=== PATIENT | female | born 1970 | race Caucasian/White ===

== ENCOUNTER 2019-02-27 10:27 | Outpatient (RCR) | payer SELFPAY | END 2019-03-21 00:01 | LOC: SPT 10:27 | PROVIDERS: Family Provider Nurse Practitioner Family; Visit Provider Podiatrist Foot & Ankle Surgery | DX: M76.61 Achilles tendinitis, right leg (principal) | CPT/HCPCS: 97161; 97530; 97110 ==

== ENCOUNTER 2019-03-24 | Outpatient (RCR) | payer SELFPAY | END 2019-06-13 | disposition home or self-care (01) | LOC: SPT | PROVIDERS: Visit Provider Podiatrist Foot & Ankle Surgery | DX: M79.671 Pain in right foot (principal); R26.89 Other abnormalities of gait and mobility | CPT/HCPCS: 97110 ==

== ENCOUNTER 2019-09-15 10:43 | Outpatient (CLI) | payer MEDICAID, SELFPAY ==
--- NOTE | 2019-09-15 11:00 | MR_ITS ---
WS: [id number] MRI RIGHT ANKLE non- CONTRAST. COMPARISON: 11/22/2018 Multiplanar, multisequence imaging is performed without contrast. History: Injury RIGHT ankle. Fell one year ago. Fluidlike signal is noted in the very distal Achilles tendon extending over length of 10 mm. This is in the region of tendinopathy described on the prior study. Very mild thickening of the tendon. No joint effusion at the ankle. Signal within the calcaneus is normal. Osteochondral lesion involving the lateral talar dome measures 9.2 mm. Similar to the prior study. Th ere is additional subchondral edema along the lateral tibial plafond and mild tibiotalar joint space narrowing. No interval change. No loose body is identified. Ligaments and tendons around the ankle a re otherwise normal. Peroneal brevis and longus are negative. MR/MR ankle RT wo con* [id number] IMPRESSION: 1. New short split tear in the distal Achilles tendon measures 10 mm in length . 2. Osteochondral lesion measuring 9.2 mm in the lateral talar dome with corres ponding subchondral edema and changes in the tibial plafond. No loose body iden tified. No change.
== END 2019-09-15 10:44 | disposition home or self-care (01) ==
PROVIDERS: Visit Provider Podiatrist Foot & Ankle Surgery
DX: S99.911A Unspecified injury of right ankle, initial encounter (principal); X58.XXXA Exposure to other specified factors, initial encounter; S86.011A Strain of right Achilles tendon, initial encounter
CPT/HCPCS: 73721

== ENCOUNTER 2019-10-04 09:38 | Outpatient (CLI) | payer MEDICAID, SELFPAY ==
--- NOTE | 2019-10-04 13:01 | PC.NURSE ---
0940 Patient here for Covid pre op testing. Patient verified via name and date of . Full PPE in place to include goggles, gloves, gown and N95 mask. Specimen collected, labeled and taken to lab. Patient tolerated procedure well.
[2019-10-05 13:45] LABS: Coronavirus Lab Test PTC Negative
== END 2019-10-04 09:39 | disposition home or self-care (01) ==
PROVIDERS: Visit Provider Podiatrist Foot & Ankle Surgery
DX: Z01.812 Encounter for preprocedural laboratory examination (principal)
CPT/HCPCS: 87635

== ENCOUNTER 2019-10-06 06:22 | Day surgery (SDC) | payer MEDICAID, SELFPAY ==
[2019-10-05 06:58] VITALS: BMI 38.4
[2019-10-06] VITALS (9 sets, daily range): BP systolic 162–182; BP diastolic 84–116; PULSE 88–113; RESP 12–20; TEMP 36.3–36.9; O2SAT 94–99
--- NOTE | 2019-10-06 | SCC_ITS ---
Procedure Done: Right Talita's resection with calcaneal exostectomy with repair of Achilles tendon, right CPT code 17208. Right flexor hallucis longus tendon transfer CPT code 14227 1 second of fluoroscopic guidance, for a cumulative dose of 0.0.2 mGy, was provided to Dr. Ernandez by the radiology department. C-arm images of the RIGHT foot were saved for the patient's permanent record. KYLIE
[2019-10-06 07:11] LABS: OR HCG Qualitative Urine Negative (Negative)
[2019-10-06] MEDS: sodium chloride 0.9% 500 ML 999 ML IV (07:20)
[2019-10-06] MEDS: sodium chloride 0.9% 1,000 ML 30 ML IV (07:30)
--- NOTE | 2019-10-06 08:01 | ANES.PREANE2 ---
Pre-Anesthetic Assessment Pre-Anesthetic Assessment: Height/Weight: Height 1.63 m Weight 101.605 kg Temp Pulse Resp BP Pulse Ox 98.5 F 94 18 174/116 96 10/06/19 06:53 10/06/19 06:53 10/06/19 06:53 10/06/19 06:53 10/06/19 06:53 Preop Diagnosis: Right Achilles tendon tear, Talita's deformity, right, gastrocnemius equinus, right. Proposed Procedure: Operation Date: 10/06/19 08:25 Proposed Procedures p Right haglunds resecton with achilles tendon repair [id number](Right) - Jp Ernandez DPM s right flexor hallucis longus tendon transfer(Right) - MATTHEW Lo Right Gastrocnemius Recession(Right) - Jp Ernandez DPM Familial anesthetic complications: Patient states her heart stopped during a procedure 30 years ago (she is unable to give any further information and does not know what procedure she had) Was Beta Jeevan taken within 24 hours: N/A Last intake: Intake Last Liquid Date 10/05/19 Last Liquid Time 23:00 Last Solid Date 10/05/19 Last Solid Time 23:00 Social: Social History: Tobacco and No alcohol Airway: Cervical ROM: WNL MP: 3 Dentition: Other (missing) Pulmonary: Pulmonary: None reported CV/HEM: CV/HEM: HTN : : None reported Hepatic: Hepatic: None reported GI: GI: None reported Metabolic: Metabolic: Thyroid Neuropsych: Neuropsych: Neuropathy Anesthetic Plan: ASA status: 3 Anesthesia: General and Regional (specify below) Risk of > 500 ml blood loss (7ml/kg in children): No PFSH Anesthesia PFSH: Medical History delivery delivered Ectopic Family History Grandmother Cancer Denies family history of Diabetes CAD (coronary artery disease) Clotting disorder Dementia Hyperlipidemia Psychiatric illness Chronic kidney disease (CKD) Suicide Anesthesia complication Bleeding disorder Family history of premature coronary artery disease Lung disease Hypertension Stroke Social History Smoking and tobacco status: current some day smoker cigarettes Second hand smoke exposure: No Alcohol intake: never Current occupational status: unemployed Female Reproductive History: Date of last menstrual period: 07/06/19 Data Anesthesia Other Labs: Laboratory Results - last 48 hr 10/06/19 07:08 Urine HCG, Qual Negative Cardiac Studies: No Data to Display
--- NOTE | 2019-10-06 08:09 | W.PM.OPSUD ---
Surgery/Procedure H&P Update DATE OF PROCEDURE: October 06, 2019 DATE H&P PERFORMED: 09/20/19 H&P UPDATE INFORMATION: I have reviewed H&P completed within last 30 days, I have examined patient prior to procedure, No changes to prior documentation and H&P is in [facility] EMR on date indicated PREOP DIAGNOSIS: Right Achilles tendon tear, Talita's deformity, right, gastrocnemius equinus, right. PLANNED PROCEDURE: Operation Date: 10/06/19 08:25 Proposed Procedures p Right haglunds resecton with achilles tendon repair [id number](Right) - Jp Ernandez DPM s right flexor hallucis longus tendon transfer(Right) - MATTHEW Lo Right Gastrocnemius Recession(Right) - Jp Ernandez DPM
--- NOTE | 2019-10-06 08:14 | ANES.PROC ---
Anesthesia Procedures Procedure/Date: 10/06/19 Other Information: R popliteal nerve block performed after time out, chloraprep of skin, 4 22 g stimuplex needle inserted with negative aspiration and visualization of spread of local anesthetic. Ropiviciane 0.2% 30 cc w/ decadron 4mg injected around tibial and common peroneal nerves. No complications
--- NOTE | 2019-10-06 10:53 | XR_ITS ---
WS: [id number] FOOT RIGHT TECHNIQUE: 3 views of the right foot CLINICAL INFORMATION: post op COMPARISON: None. FINDINGS: Splint material. Recent postoperative changes dorsal calcaneal resurfacing. Soft tissue edema. XR/XR foot RT min 3V* [id number] IMPRESSION: Normal for postoperative purposes
--- NOTE | 2019-10-06 11:04 | PM.OP ---
Operative Report Date of procedure: October 06, 2019 Pre-op Diagnosis: Right Achilles tendon tear, Talita's deformity, right, gastrocnemius equinus, right. Post-op diagnosis: other Post-op Diagnosis: Right Achilles tendon tear with Talita's deformity to the right lower extremity. Post-op Findings: Degenerative Achilles tendon with Talita's deformity and insertional Achilles calcifications Procedure Done: Right Talita's resection with calcaneal exostectomy with repair of Achilles tendon, right CPT code 60960. Right flexor hallucis longus tendon transfer CPT code 40259 Implants: [employer] speed bridge and amnion graft provided by [employer]. 5 mm tenodesis screw provided by [employer]. 2-0 Vicryl, 3-0 Vicryl, 3-0 nylon. 2-0 FiberWire Pathology: none sent Surgeon: Jp Ernandez D.P.M. Cardiopulmonary Physical Therapist: Gabriela Anesthesia: General Estimated blood loss: 10 mL Tourniquet time: Approximately 84 minutes IV fluids: None Urine output: None Complications: None Condition: stable Disposition: PACU Brief History: Ms. Rust is a 49-year-old female with Achilles tendinosis, Talita's deformity and persistent pain to her right posterior heel and Achilles tendon. She has underwent extensive conservative management consisting of physical therapy, analgesics, stretching, loading exercises, night splint and offloading. MRI findings consistent with mucoid degeneration and Achilles tendinosis with thickening and mid substance tear on insertion with intratendinous calcifications. Patient states that her pain has not responded to conservative care and that it affects her ability to carry out everyday activities she has pain on a daily basis and states that she cannot take it anymore. Surgery procedure recommended is Talita's resection right lower extremity, secondary Achilles tendon repair to the right lower extremity, right flexor hallucis longus tendon transfer and possible gastrocnemius recession. Risks include pain, bleeding, numbness, infection, surgical site dehiscence, need for antibiotics, need for surgical debridement and/or amputation secondary to infection, loss of function, loss of plantarflexion strength at the great toe right lower extremity. Risks for DVT, PE, heart attack and stroke, failure to alleviate pain, neuralgia, neuritis And tendon rupture to the right lower extremity. Patient is agreeable and wishes to proceed. Procedure: Under mild sedation the patient was brought to the operating room, timeout was performed, anesthesia was administered by the anesthesia service after which patient was positioned prone onto the operating table with offloading and padding in standard fashion. Well-padded pneumatic tourniquet applied to the right high thigh. The right lower extremity was then scrubbed, prepped and draped utilizing normal aseptic technique. As noted that she did receive a popliteal block preoperatively. The right lower extremity was examined a weighted with an Esmarch bandage and a tourniquet was inflated to 300 mmHg. Attention was directed to the right posterior heel where a linear longitudinal incision was made approximately 8 cm in length directly over the midsection of the Achilles tendon coursing distally at its insertion through skin with a #15 blade. Dissection was carried down both bluntly and sharply to the peritenon which was reflected medially and laterally. Care was taken to retract and preserve neurovascular tendinous structures. Bleeders were ligated and cauterized as necessary. Achilles tendon was exposed and skin retracted utilizing self-retaining retractors. Achilles tendon was noted to be excessively thickened and degenerative with devitalized tissue this was sharply debrided. The Achilles tendon was reflected off of its insertion site sharply with a 15 blade after which the bony overgrowth of the posterior calcaneus was transected utilizing a sagittal saw and passed from operative field. All rough edges and enthesophytes smoothed and removed utilizing a rongour. Further debridement of the posterior and anterior medial lateral aspect of the Achilles tendon was performed of all devitalized and degenerative tissue. This was then reflected proximally. Dissection was then carried down through the fat pad of Kager's triangle and the flexor hallucis longus tendon was identified this was confirmed by dorsiflexing and plantar flexing the right hallux. It was transected at its most distal margin and secured utilizing 2-0 FiberWire. A drill hole for a 5 mm tenodesis screw was then utilized from a posterior superior to anterior inferior aspect and a Loki needle was utilized to pass the suture and tension the flexor houses longus tendon appropriately this was then fixated utilizing it interference tenodesis screw 5 mm in diameter provided by [employer] with excellent apposition and fixation noted there is strong resistance to pullout appreciated. Excess FiberWire was trimmed plantarly and remained subcutaneous. Incision site was flushed with saline solution. A [employer]rex speed bridge was then utilized with 2 high to low fashion beginning with drill holes followed by tap and insertion of knotless suture bridge and crisscross fashion anchoring the Achilles tendon directly to healthy bone with great tendon to bone interface. Excess suture was trimmed and the incision site was flushed with saline solution. Peritenon was closed utilizing 3-0 Vicryl and amnion provided by [employer] was introduced at the posterior aspect of the peritenon this was tacked down with 3-0 Vicryl. Subcutaneous tissue was then reapproximated utilizing 2-0 Vicryl and skin was reapproximated utilizing 3-0 nylon. Determination was made to not perform the gastrocnemius recession as the Achilles tendon had adequate length and after having performed a flexor transfer there was excellent stability of the construct without an equinus deformity appreciated. The incision site was dressed with a jumpstart, sterile 4 x 4's, Kerlix followed by application of well-padded Wyman splint that was multilayer and compressive in an equinus position. Tourniquet was deflated and a prompt hyperemic response was noted to the distal digits of the right foot. Patient tolerated the procedure well and was transferred to the PACU with vital signs stable vascular status intact. Following a period of postoperative monitoring she will be discharged home is to remain strict nonweightbearing to the right lower extremity will follow-up Jered next week in podiatry clinic for dressing change. Also of note I did inject 20 cc of Exparel subcutaneously per pizza maker recommendations at the incision site.
== END 2019-10-06 12:20 | disposition home or self-care (01) ==
PROVIDERS: Anesthesiology; PCP Nurse Practitioner Family; Visit Provider Podiatrist Foot & Ankle Surgery
PROC: (CPT 27654; principal; 2019-10-06 08:25)
PROC: (CPT 28261; 2019-10-06 08:25)
DX: S86.001A Unspecified injury of right Achilles tendon, initial encounter (principal); X58.XXXA Exposure to other specified factors, initial encounter; M92.61 Juvenile osteochondrosis of tarsus, right ankle; I10 Essential (primary) hypertension; F17.210 Nicotine dependence, cigarettes, uncomplicated
CPT/HCPCS: 27654; 27691; 12345; 73630; 76000; 84703; C1713; C1762; C9290; J0690; J1100; J2370; J2405; J2704; J2795; J3010; J3490; J7030; J7040

== ENCOUNTER 2019-10-19 11:32 | Outpatient (CLI) | payer MEDICAID, SELFPAY | END 2019-10-19 11:33 | disposition home or self-care (01) | LOC: SPT 11:34 | PROVIDERS: PCP Nurse Practitioner Family; Visit Provider Podiatrist Foot & Ankle Surgery | DX: Z98.890 Other specified postprocedural states (principal); M65.28 Calcific tendinitis, other site | CPT/HCPCS: 97760; L4361 ==

== ENCOUNTER → 2020-01-08 08:30 | Outpatient (BNVA) | payer MEDICAID, SELFPAY | PROVIDERS: PCP Nurse Practitioner Family; Visit Provider Psychiatry & Neurology Psychiatry | DX: F41.9 Anxiety disorder, unspecified (principal); F41.1 Generalized anxiety disorder; F43.10 Post-traumatic stress disorder, unspecified | CPT/HCPCS: 90792 ==

== ENCOUNTER → 2020-02-09 11:28 | Outpatient (BNVA) | payer MEDICAID, SELFPAY | PROVIDERS: PCP Nurse Practitioner Family; Visit Provider Psychiatry & Neurology Psychiatry | DX: F41.1 Generalized anxiety disorder (principal) | CPT/HCPCS: 99213 ==

== ENCOUNTER 2020-02-12 09:41 | Outpatient (CLI) | payer MEDICAID, SELFPAY ==
--- NOTE | 2020-02-12 09:51 | XR_ITS ---
WS: [id number] LEFT KNEE: 3 VIEW(S) TECHNIQUE: AP, oblique(s) and lateral. HISTORY: LEFT KNEE PAIN COMPARISON: None available. No acute fracture identified. There is lateral patellar dislocation with respect to the intercondylar notch. Mild narrowing of the medial joint space. Small suprapatellar joint effusion. DEXA XR/XR knee LT 3V* [id number] IMPRESSION: Lateral dislocation patella.
== END 2020-02-12 09:42 | disposition home or self-care (01) ==
LOC: RAD 09:46
PROVIDERS: PCP Nurse Practitioner Family; Visit Provider Nurse Practitioner Family
DX: S83.015A Lateral dislocation of left patella, initial encounter (principal); X58.XXXA Exposure to other specified factors, initial encounter
CPT/HCPCS: 73562

== ENCOUNTER 2020-04-25 09:23 | Outpatient (CLI) | payer MEDICAID, SELFPAY ==
--- NOTE | 2020-04-25 09:27 | MR_ITS ---
WS: [id number] MRI LEFT KNEE HISTORY: CHONDROMALACIA LEFT KNEE COMPARISON: Radiograph 02/12/2020. Anterior cruciate ligament: Intact. Posterior cruciate ligament: Intact. Medial collateral ligament: Intact. Posterior lateral corner structures: Intact. Medial menisci: Abnormal signal throughout a large portion of the posterior meniscus extends to the s uperior and inferior articular surfaces. Lateral meniscus: Intact. Normal signal, size and shape. Extensor mechanism: Distal quadriceps tendon and patellar tendons are intact. Fluid and soft tissue: Moderate-sized suprapatellar joint effusion. There is soft tissue edema around the anterior knee. No Good's cyst. Osseous and articular structures: Patellofemoral compartment: Lateral subluxation of the patella. The patellar eminence is contacting t he anterior lateral femur. This corresponds also to the radiographs from 02/12/2020. There is loss of the cartilage involving the lateral patellar facet towards the eminence. There is also defects withi n the medial patellar facet cartilage. Medial patellar retinaculum not identified and is likely torn. Medial compartment: Mild narrowing of the medial compartment. Mild fissuring of the cartilage but no full-thickness defect. No marrow edema. Lateral compartment: Mild narrowing of the lateral compartment. 3 mm defect in the cartilage along th e tibial plateau. There is additional mild fissuring along the weightbearing surface of the lateral f emoral condyle. MR/MR knee LT wo con* [id number] IMPRESSION: 1. Chronic lateral dislocation of the patella with a torn medial patellar reti naculum. 2. 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 3. Chondromalacia lateral tibial plateau. 4. Moderate-sized suprapatellar joint effusion. 5. Complex tear posterior horn medial meniscus.
== END 2020-04-25 09:24 | disposition home or self-care (01) ==
LOC: RADSHAW 09:24
PROVIDERS: PCP Nurse Practitioner Family; Visit Provider Orthopaedic Surgery
DX: M94.262 Chondromalacia, left knee (principal); S83.242A Other tear of medial meniscus, current injury, left knee, initial encounter; M25.462 Effusion, left knee; X58.XXXA Exposure to other specified factors, initial encounter
CPT/HCPCS: 73721

== ENCOUNTER 2020-04-25 09:27 | Outpatient (CLI) | payer MEDICAID, SELFPAY ==
--- NOTE | 2020-04-25 09:35 | MM_ITS ---
WS: [id number] BILATERAL DIGITAL SCREENING MAMMOGRAPHY WITH CAD CLINICAL INFORMATION: SCREENING HISTORY: Screening mammogram. No current complaints. COMPARISON: November 22, 2018 TECHNIQUE: Bilateral CC and MLO views. FINDINGS: Scattered fibroglandular densities bilaterally. No suspicious focal mass, asymmetry, calcifications, or architectural distortion. No evidence of malignancy. Punctate and secretory calcifications. MM/[place] [id number] IMPRESSION: BI-RADS: 2-Benign FOLLOW UP: 1 Year Follow-up Recommend return to annual screening mammography.
== END 2020-04-25 09:28 | disposition home or self-care (01) ==
LOC: RADSHAW 09:27
PROVIDERS: PCP Nurse Practitioner Family; Visit Provider Nurse Practitioner Family
DX: Z12.31 Encounter for screening mammogram for malignant neoplasm of breast (principal)
CPT/HCPCS: 77067

== ENCOUNTER → 2020-05-17 09:14 | Outpatient (BNVA) | payer MEDICAID, SELFPAY | PROVIDERS: PCP Nurse Practitioner Family; Visit Provider Counselor Professional | DX: F41.1 Generalized anxiety disorder (principal); F43.12 Post-traumatic stress disorder, chronic | CPT/HCPCS: 90832 ==

== ENCOUNTER → 2020-06-04 09:17 | Outpatient (BNVA) | payer MEDICAID, SELFPAY | PROVIDERS: PCP Nurse Practitioner Family; Visit Provider Counselor Professional | DX: F41.1 Generalized anxiety disorder (principal); F43.12 Post-traumatic stress disorder, chronic | CPT/HCPCS: 90832 ==

== ENCOUNTER 2020-06-11 08:41 | Outpatient (CLI) | payer MEDICAID, SELFPAY ==
--- NOTE | 2020-06-11 08:50 | CT_ITS ---
WS: [id number] Exam: CT knee LT wo con* [id number] Date/Time of Exam: 06/11/2020 8:50 AM Reason For Exam: M94.262 - Chondromalacia, left knee DLP: 2522.[address] scans at [facility] use at least one of these dose optimization techniques: automat ed exposure control; mA and/or kV adjustment per patient size (includes targeted exams where dose is matched to clinical indication); or iterative reconstruction. The left knee is evaluated in the axial plane with sagittal, coronal and 3-D reformatted images. No acute fracture identified. The medial patellar retinaculum appears to be completely torn. The webb lla is displaced and rides on the lateral femoral condyle with significant tilt. Large volume effusi on in the suprapatellar bursa. Mild subchondral bone erosions are seen at the inferior pole of the ce ntral patella. Moderate degenerative narrowing of the medial joint compartment of the knee. No obviou s subchondral bone erosion along the tibial plateaus or femoral condyles. Myofascial structures about the knee are intact. The subcutaneous fat is clear. CT/CT knee LT wo con* [id number] IMPRESSION: 1. Complete tear of the medial patellar retinaculum. The patella is displaced l aterally and rides on the lateral femoral condyle with significant lateral tilt of the articulating surface. 2. Large effusion in the suprapatellar bursa. 3. Mild subchondral bone erosion identified along the inferior pole of the cent ral patella. 4. Moderate degenerative narrowing of the medial joint compartment of the left knee.
== END 2020-06-11 08:42 | disposition home or self-care (01) ==
LOC: RADWPI 08:42
PROVIDERS: PCP Nurse Practitioner Family; Visit Provider Orthopaedic Surgery
DX: M94.262 Chondromalacia, left knee (principal); M25.462 Effusion, left knee; M85.862 Other specified disorders of bone density and structure, left lower leg; S86.812A Strain of other muscle(s) and tendon(s) at lower leg level, left leg, initial encounter; X58.XXXA Exposure to other specified factors, initial encounter
CPT/HCPCS: 73700

== ENCOUNTER → 2020-06-20 13:19 | Outpatient (BNVA) | payer MEDICAID, SELFPAY | PROVIDERS: PCP Nurse Practitioner Family; Visit Provider Counselor Professional | DX: F41.1 Generalized anxiety disorder (principal); F43.12 Post-traumatic stress disorder, chronic | CPT/HCPCS: 90832 ==

== ENCOUNTER → 2020-07-22 13:11 | Outpatient (BNVA) | payer MEDICAID, SELFPAY | PROVIDERS: PCP Nurse Practitioner Family; Visit Provider Counselor Professional | DX: F41.1 Generalized anxiety disorder (principal); F43.12 Post-traumatic stress disorder, chronic | CPT/HCPCS: 90832 ==

== ENCOUNTER → 2020-08-20 09:03 | Outpatient (BNVA) | payer MEDICAID, SELFPAY | PROVIDERS: PCP Nurse Practitioner Family; Visit Provider Counselor Professional | DX: F41.1 Generalized anxiety disorder (principal); F43.12 Post-traumatic stress disorder, chronic | CPT/HCPCS: 90832 ==

== ENCOUNTER → 2020-09-10 08:10 | Outpatient (BNVA) | payer MEDICAID, SELFPAY | PROVIDERS: PCP Nurse Practitioner Family; Visit Provider Psychiatry & Neurology Psychiatry | DX: F41.1 Generalized anxiety disorder (principal) | CPT/HCPCS: 99214 ==

== ENCOUNTER 2020-09-11 09:53 | Outpatient (CLI) | payer MEDICAID, SELFPAY ==
--- NOTE | 2020-09-11 10:02 | XR_ITS ---
WS: [id number] Left knee, 4 views, 09/11/2020 Clinical Data: LEFT KNEE PAIN Comparison: Left knee, 02/12/2020. Findings: There is narrowing of the medial joint space with a spur of the medial femoral condyle. The patella i s displaced laterally from its typical location approximately 1 cm. No fractures are seen. The soft tissues are not remarkable. XR/XR knee LT 4V [id number] Impression: 1. Mild medial joint compartment osteoarthritis. 2. Lateral displacement of left patella. Kellgren-Jostin Classification: grade 2 (minimal): definite osteophytes and p ossible medial joint space narrowing
--- NOTE | 2020-09-11 10:02 | XR_ITS ---
WS: [id number] Skull series, 4 views, 09/11/2020 Clinical Data: INJURY OF HEAD-FRONTAL Comparison: None. Findings: There are no skull fractures. The sella turcica is normal. No abnormal intracranial calcifications ar e seen. Frontal sinuses and orbits are not remarkable. XR/XR skull min 4V* [id number] Impression: Negative skull series.
== END 2020-09-11 09:54 | disposition home or self-care (01) ==
PROVIDERS: Visit Provider Nurse Practitioner Family
DX: M25.562 Pain in left knee (principal); S09.90XA Unspecified injury of head, initial encounter; X58.XXXA Exposure to other specified factors, initial encounter
CPT/HCPCS: 70260; 73564

== ENCOUNTER → 2020-09-16 09:09 | Outpatient (BNVA) | payer MEDICAID, SELFPAY | PROVIDERS: PCP Nurse Practitioner Family; Visit Provider Counselor Professional | DX: F41.1 Generalized anxiety disorder (principal); F43.12 Post-traumatic stress disorder, chronic | CPT/HCPCS: 90832 ==

== ENCOUNTER → 2020-10-11 12:57 | Outpatient (BNVA) | payer MEDICAID, SELFPAY | PROVIDERS: PCP Nurse Practitioner Family; Visit Provider Orthopaedic Surgery | DX: Z01.812 Encounter for preprocedural laboratory examination (principal); Z20.822 Contact with and (suspected) exposure to COVID-19 | CPT/HCPCS: 87635 ==

== ENCOUNTER → 2020-10-14 09:19 | Outpatient (BNVA) | payer MEDICAID, SELFPAY | PROVIDERS: PCP Nurse Practitioner Family; Visit Provider Counselor Professional | DX: F41.1 Generalized anxiety disorder (principal); F43.12 Post-traumatic stress disorder, chronic | CPT/HCPCS: 90832 ==

== ENCOUNTER 2020-10-17 08:44 | Day surgery (SDC) | payer MEDICAID, SELFPAY ==
[2020-10-16 11:30] VITALS: BMI 35.3
[2020-10-17] VITALS (17 sets, daily range): BP systolic 135–165; BP diastolic 81–116; PULSE 91–117; RESP 10–18; TEMP 36.4–37.2; O2SAT 86–96
--- NOTE | 2020-10-17 | XR_ITS ---
WS: [id number] INTRAOPERATIVE TECHNIQUE: 3 Spot fluoroscopic images for intraoperative purposes. FLUOROSCOPY TIME: 68.9 seconds CLINICAL INFORMATION: ORIF tib fib COMPARISON: None. FINDINGS: Cannulated screw fixation involving the proximal and mid tibia diaphysis. XR/XR tibia fibula LT 2V [id number] IMPRESSION: Images obtained for intraoperative purposes.
--- NOTE | 2020-10-17 | SCC_ITS ---
Procedure Done: Left knee; diagnostic arthroscopy with arthroscopic chondroplasty patella, tibial tubercle transposition, medial patellofemoral ligament reconstruction 68.9 seconds of fluoroscopic guidance, for a cumulative dose of 4.92 mGy, was provided to Dr. Kelley by the radiology department. C-arm images of the LEFT tibia-fibula were saved for the patient's permanent record. [facility] HOSPITALHorace
[2020-10-17 09:11] LABS: OR HCG Qualitative Urine Negative (Negative)
[2020-10-17] MEDS: gabapentin 300 mg Capsule PO (09:58)
[2020-10-17] MEDS: sodium chloride 0.9% 1,000 ML 30 ML IV (09:58)
[2020-10-17] MEDS: acetaminophen 500 mg Tablet 1000 MG PO (09:59)
[2020-10-17] MEDS: CELEcoxib 200 mg Capsule 400 MG PO (09:59)
--- NOTE | 2020-10-17 10:13 | ANES.PREANE2 ---
Pre-Anesthetic Assessment Pre-Anesthetic Assessment: Height/Weight: Height 1.63 m Weight 93.44 kg Temp Pulse Resp BP Pulse Ox 99.0 F 97 16 165/101 95 10/17/20 09:19 10/17/20 09:19 10/17/20 09:19 10/17/20 09:19 10/17/20 09:19 Preop Diagnosis: Patellar instability left knee Proposed Procedure: Operation Date: 10/17/20 10:20 Proposed Procedures p left knee diagnostic arthroscopy 27234 23267 46857 70101 m22.40 m23.204 m25.362(Left) - Kye Kelley MD s tibial tubercle osteotomy(Not Applicable) - Kye Kelley MD s medial Patellofemoral Ligament Reconstruction(Not Applicable) - Kye Kelley MD Was Beta Jeevan taken within 24 hours: N/A Was Clonidine taken within 24 hours: N/A Last intake: Intake Last Liquid Date 10/16/20 Last Liquid Time 23:30 Last Solid Date 10/16/20 Last Solid Time 23:00 Social: Social History: Tobacco and No alcohol Exam: Pre-Anes Outpt Exam: alert, oriented x 3 and regular rate & rhythm Additional Exam Findings (including area of procedure): rhonchi Airway: Submandibular: WNL Cervical ROM: WNL MP: 2 Dentition: Full Pulmonary: Pulmonary: COPD CV/HEM: CV/HEM: HTN Metabolic: Metabolic: Hyperlipidemia and Morbid obesity Musc/skel: Musc/skel: OA/DJD Neuropsych: Neuropsych: Anxiety Anesthetic Plan: ASA status: 3 Anesthesia: General and Regional (specify below) (Adductor blk) Risk of > 500 ml blood loss (7ml/kg in children): No Meds/Allergies Current Medications: Current Medications Generic Name Dose Route Start Last Admin Trade Name Freq PRN Reason Stop Dose Admin Sodium Chloride 1,000 mls @ 30 ml s/hr 10/17/20 09:00 10/17/20 09:58 Sodium Chloride 0.9% IV 10/18/20 08:59 30 mls/hr .Q24H ABEL Administration PFSH Anesthesia PFSH: Medical History Anxiety delivery delivered Ectopic Generalized anxiety disorder PTSD (post-traumatic stress disorder) Family History Grandmother Cancer Denies family history of Diabetes CAD (coronary artery disease) Clotting disorder Dementia Hyperlipidemia Psychiatric illness Chronic kidney disease (CKD) Suicide Anesthesia complication Bleeding disorder Family history of premature coronary artery disease Lung disease Hypertension Stroke Social History Smoking and tobacco status: current every day smoker cigarettes Second hand smoke exposure: No Alcohol intake: never Current occupational status: unemployed Current gender identity: Female Female Reproductive History: Date of last menstrual period: 09/11/20 Data Anesthesia Other Labs: Laboratory Results - last 48 hr 10/17/20 09:01 Urine HCG, Qual Negative Cardiac Studies: No Data to Display
--- NOTE | 2020-10-17 10:18 | W.PM.OPSUD ---
Surgery/Procedure H&P Update DATE OF PROCEDURE: October 17, 2020 DATE H&P PERFORMED: 10/01/20 PREOP DIAGNOSIS: Patellar instability left knee PLANNED PROCEDURE: Operation Date: 10/17/20 10:20 Proposed Procedures p left knee diagnostic arthroscopy 58598 [id number] 90130 m22.40 m23.204 m25.362(Left) - Kye Kelley MD s tibial tubercle osteotomy(Not Applicable) - Kye Kelley MD s medial Patellofemoral Ligament Reconstruction(Not Applicable) - Kye Kelley MD
[2020-10-17] MEDS: morphine 4 mg/mL SDV 1 mL 8 MG (11:04)
--- NOTE | 2020-10-17 11:08 | ANES.PROC ---
Anesthesia Procedures Procedure/Date: 10/17/20 Nerve Block ^: Nerve Block 1: Main Anesthesia: general anesthesia Time Out Performed: Yes Consent: requested by attending/covering physician, from patient, risks and benefits reviewed and patient agrees to proceed Nerve block location: adductor canal (Left) Anesthesia monitors applied: pulse oximetry, EKG, BP cuff and oxygen Nerve block position: supine Anesthetic Used: ropivicaine 0.5% Amount of anesthesia used (mL): 20 Ultrasound used to: recognize landmarks Nerve Stimulator Used?: No Interscalene/Femoral BLK: 4 stimuplex 21 g needle used for position and inplane approach and visualize local anesthetic spread Injection: neg aspiration of heme Patient Tolerated Procedure: well Complications: none
--- NOTE | 2020-10-17 13:28 | P.OP_ITS ---
Operative Report Date of procedure: October 17, 2020 Pre-op Diagnosis: Patellar instability left knee Post-op diagnosis: same Post-op Findings: Same Procedure Done: Left knee; diagnostic arthroscopy with arthroscopic chondroplasty patella, tibial tubercle transposition, medial patellofemoral ligament reconstruction Implants: Rama cannulated ASNIS 4.0 screws with washersX4, Velazquez and [employer] Bio[employer] PK screw 7x25mm Pathology: none sent Surgeon: Kye Kelley Anesthesia: General and Nerve Block (Adductor canal block) Estimated blood loss (mL): 20 Tourniquet time (min): 111 Complications: None Findings: The patient had unremarkable medial lateral compartments including healthy chondral surface and healthy menisci. She had a shallow trochlear groove and marked degenerative fibrillation and fraying on the undersurface of the patella both the medial and lateral facets with lateral positioning of the patella in the trochlear groove. Condition: stable Brief History: Valery had recurrent instability of her left knee. Preoperative work-up revealed a shallow trochlear groove, a elevated tibial tubercle trochlear groove angle and laxity of her medial patellofemoral structures. She failed exercise program with continued symptomatic instability. She was taken to the operating room for a tibial tubercle osteotomy and medial patellofemoral ligament reconstruction to improve stability Procedure: The patient was taken to the operating room and given a general anesthesia. An adductor canal block was provided by anesthesia. She was given 2 g of Ancef. Her knee was infiltrated with 30 cc of 0.5% Marcaine with epi and 10 mg of morphine. She was given 2 g of Ancef. Her left lower extremity was prepped and draped in the usual fashion. Timeout was performed. The knee was initially entered through the inferior medial and inferior lateral portals. The diagnostic portion arthroscopy was performed. Her medial lateral compartments and menisci were healthy. Her cruciate ligaments appeared healthy. She had a shallow trochlear groove but generally softening of the cartilage there. There were no trochlear cartilage defects of significance. She had marked chondromalacia of the medial and lateral facets of the patella with marked fibrillation and fraying. Incisor shaver was introduced and unstable cartilage was debrided medially and laterally. Arthroscopy equipment was then removed. A tourniquet was inflated to 325 mmHg. An incision was made from mid patella extending to a point approximately 5 cm distal to the tibial tubercle anteriorly. Dissection was carried down with electrocautery to the anterior tibia and patellar tendon. Soft tissues were mobilized medially and laterally exposing the patella patellar tendon and anterior tibia. The anterior lateral musculature from the tibia laterally and periosteum elevated medially of the tibial tubercle distally approximately 5 cm. Utilizing an oscillating saw the tibial tubercle was osteotomized from a point approximately 1 cm proximal to the tibial tubercle with the soft directed from a posterior lateral position to anterior medial. To a point approximately 5 cm distal to the tubercle. Drill holes were made along the medial cortex of the tibia and anteriorly over the tibia at a point approximately 5 cm distal to the tibial tubercle. An osteotome was used to complete the osteotomy. The tibial tubercle was translated approximately 8 mm medially. In the course of displacing the tibia the anterior cortical osteotomy resulted in extension of the fracture distal to the perforations. Radiographs reveal this to remain purely anterior and not extending into the medial lateral or posterior cortex of the tibia. The osteotomy was fixed with 3 anterior to posterior 4.0 millimeter screws with washers. An additional screw was placed through the area of a fracture extension securing that. Next the medial flap was expanded medially. A well-developed semitendinosis tendon was identified. It was freed from its insertion on the tibia and utilizing a tendon stripper the semitendinosis tendon was harvested. In the back table it was free of the muscle and the free ends fixed with Ultrabraid suture. Cautery was used to debride down to the medial border of the midportion of the patella. A guidepin was driven from mid patella just anterior to the articular surface exiting slightly more superiorly and anteriorly. The guidepin was then used to shuttle sutures and one end of the harvested graft through the tunnel. A hemostat was then passed beneath the vastus medialis exiting the quadriceps tendon as it inserts on the superior patella and the and passed through the patella was passed through this tunnel. This resulted in the 2 free ends of tendinosis exiting the medial patella and beneath the vastus medialis obliqus. It was not possible to get trajectory from Schottle's point from the anterior incision so a small more posterior medial 3 cm long incision was made. Dissection was carried down to bone. Utilizing fluoroscopy, Schottle's point was identified between Blumenstat's line and the proximal condyle and just anterior to the line of the lateral cortex on the lateral projection. Over this guidepin was passed a 6mm reamer. Guidepin was used to shuttle a loop of Ultrabraid through the femur which was brought anteriorly into the main incision. The sutures from the free end of the semitendinosus graft were then shuttled through the tunnel. A guide pin was placed through the tunnel and the interference screw placed with satisfactory purchase securing the graft. Wounds were irrigated with saline. The deep medial flap was reapproximated with 2-0 Vicryl. Deep subcutaneous tissues were closed with a running 2-O Stratafix. The skin was closed with a running 4-0 Stratafix. Medial incision was closed with buried strata fix suture. Xeroflo gauze, 4 x 4's, a crest compressive Fabian wrap and knee immobilizer were applied. The patient was extubated and taken to recovery room in stable condition.
--- NOTE | 2020-10-17 13:43 | PM.PACU ---
Documented by User: Rafael Kevin CRNA 10/17/20 13:43 PACU note PACU note: VSS, Good respiratory effort, report to SURGICAL TECHNOLOGIST Post-Anesthesia Exam: awake
[2020-10-17] MEDS: fentaNYL 50 mcg/mL INJ 2mL IVP (13:59)
[2020-10-17] MEDS: ondansetron 2 mg/ML SDV 2 mL 4 MG IVP (14:20)
--- NOTE | 2020-10-17 15:00 | ANE.PACU2 ---
Inpatient post-anesthesia follow up: Airway intact: Yes Vital signs: Temperature 97.9 F Pulse Rate 92 Respiratory Rate 10 Blood Pressure 150/89 Pulse Oximetry 92 Oxygen Delivery Me thod Nasal Cannula Oxygen Flow Rate 3 Fraction of Inspir ed Oxygen Hydration adequate: Yes Nausea and vomiting: No Pain level: 1 Mental status: Baseline
[2020-10-17] MEDS: glycopyrrolate 0.2 mg/mL SDV 2 mL IV (15:27)
[2020-10-17] MEDS: oxyCODONE-APAP 5-325 mg Tablet 1 TAB PO (17:20)
== END 2020-10-17 17:25 | disposition home or self-care (01) ==
PROVIDERS: Anesthesiology; PCP Nurse Practitioner Family; Visit Provider Orthopaedic Surgery
PROC: (CPT 29870; principal; 2020-10-17 10:10)
PROC: (CPT 27428; 2020-10-17 10:10)
PROC: (CPT 27427; 2020-10-17 10:10)
DX: M23.52 Chronic instability of knee, left knee (principal); J44.9 Chronic obstructive pulmonary disease, unspecified; I10 Essential (primary) hypertension; E78.5 Hyperlipidemia, unspecified; E66.01 Morbid (severe) obesity due to excess calories; Z68.35 Body mass index [BMI] 35.0-35.9, adult; F41.9 Anxiety disorder, unspecified; F17.210 Nicotine dependence, cigarettes, uncomplicated
CPT/HCPCS: 27428; 27455; 29870; 64447; 73590; 76000; 76942; 81025; 84703; C1713; J0690; J1170; J1580; J2270; J2405; J2704; J2795; J3010; J3490; J7030; J7611

== ENCOUNTER → 2020-11-19 11:08 | Outpatient (BNVA) | payer MEDICAID, SELFPAY | PROVIDERS: PCP Nurse Practitioner Family; Visit Provider Orthopaedic Surgery | DX: Z48.89 Encounter for other specified surgical aftercare (principal) | CPT/HCPCS: 73560 ==

== ENCOUNTER → 2020-12-20 09:23 | Outpatient (BNVA) | payer MEDICAID, SELFPAY | PROVIDERS: PCP Nurse Practitioner Family; Visit Provider Orthopaedic Surgery | DX: Z48.89 Encounter for other specified surgical aftercare (principal) | CPT/HCPCS: 87070; 87075; 87077; 87184; 87205 ==

== ENCOUNTER → 2021-01-08 11:38 | Outpatient (BNVA) | payer MEDICAID, SELFPAY | PROVIDERS: PCP Nurse Practitioner Family; Visit Provider Orthopaedic Surgery | DX: Z98.890 Other specified postprocedural states | CPT/HCPCS: 73560 ==

== ENCOUNTER 2021-03-03 09:27 | Outpatient (CLI) | payer MEDICAID, SELFPAY ==
--- NOTE | 2021-03-03 09:33 | XR_ITS ---
WS: [id number] XR chest 2V* [id number] REASON FOR EXAM: Shortness of breath FINDINGS: Moderate tortuosity the thoracic aorta without aneurysmal dilatation. Normal heart size. No active pulmonary parenchymal or pleural disease is noted. Bony thorax is intact. XR/XR chest 2V* [id number] IMPRESSION: No acute chest abnormality.
[2021-03-03 10:31] LABS: Basophils % 0.2 %; Eosinophils # 0.1 10^3/uL (0.0-0.8); Eosinophils % 0.9 %; Hemoglobin 14.2 g/dL (11.5-15.3); Lymphocytes # 3.6 10^3/uL (0.8-4.8); Lymphocytes % 24.5 %; Mean Corpuscular HGB Conc 32.3 g/dL (30.0-36.0); Mean Corpuscular Hemoglobin 29.5 pg (28.0-34.0); Mean Corpuscular Volume 91.5 fl (81-99); Mean Platelet Volume 9.9 fL (7.4-10.4); Monocytes # 0.7 10^3/uL (0.2-0.9); Neutrophils # 10.17 10^3/uL (1.8-7.7); Neutrophils % 68.9 %; Nucleated Red Blood Cells % 0 %; Platelet Count 334 10^3/cmm (130-400); Red Blood Count 4.81 10^6/uL (4.1-5.3); Red Cell Distribution Width 14.6 % (12.1-15.1); White Blood Count 14.7 10^3/uL (4.0-10.0)
[2021-03-03 10:54] LABS: Alanine Aminotransferase 26 U/L (0-33); Albumin Level 4.3 g/dL (3.5-5.2); Alkaline Phosphatase 89 IU/L (35-105); Anion Gap 18.9 (5-19); Aspartate Amino Transferase 17 U/L (0-32); Blood Urea Nitrogen 13 mg/dL (6-20); Calcium 8.9 mg/dL (8.5-10.5); Carbon Dioxide 23 mmol/L (22-29); Chloride 102 mmol/L (98-107); Globulin 2.7 g/dL (1.3-4.6); Glomerular Filtration Rate 106.3 mL/min (90-130); Glucose 98 mg/dL (65-115); Osmolality Calculated 290 mOsm/kg (285-295); Potassium 3.9 mmol/L (3.5-5.1); Sodium 140 mmol/L (136-145); Total Bilirubin 0.2 mg/dL (0.15-1.2)
[2021-03-04 16:13] LABS: Alternaria Alternata (M6) Ige <0.10 kU/L; Alternaria Class 0; Bermuda Class 0; Bermuda Grass (G2) Ige <0.10 kU/L; Cat Dander (E1) Ige <0.10 kU/L; Cat Dander Class 0; Common Ragweed (Short) (W1) Ig <0.10 kU/L; D. Farinae Class 0; Dermatophagoides Class 0; Dermatophagoides Farinae (D2) <0.10 kU/L; Dermatophagoides Pteronyssinus <0.10 kU/L; Dog Dander (E5) Ige <0.10 kU/L; Dog Dander Class 0; Elm (T8) Ige <0.10 kU/L; Elm Class 0; English Plantain (W9) Ige <0.10 kU/L; English Plantain Class 0; House Dust (Greer) (H1) Ige <0.10 kU/L; House Dust (Hollister- Stier) <0.10 kU/L; House Dust Class 0; Immunoglobulin E 18 kU/L (<OR=114); Immunoglobulin E 20 kU/L (<OR=114); Johnson Grass (G10) Ige <0.10 kU/L; Johnson Grass Cl 0; June Grass Class 0; June Grass(Kentucky Blue) (G8) <0.10 kU/L; Lamb'S Quarters (Goose Foot) <0.10 kU/L; Lamb'S Quarters Class 0; Maple (Box Elder) (T1) Ige <0.10 kU/L; Maple Class 0; Meadow Fescue (G4) Ige <0.10 kU/L; Meadow Fescue Class 0; Mucor Racemosus Class 0; Oak (T7) Ige <0.10 kU/L; Oak Class 0; Orchard Grass (Cocksfoot) (G3) <0.10 kU/L; Penicillium Class 0; Penicillium Notatum (M1) Ige <0.10 kU/L; Perennial Rye Grass (G5) Ige <0.10 kU/L; Perennial Rye Grass Class 0; Ragweeed Class 0; Rough Marsh Elder (W16) Ige <0.10 kU/L; Rough Marsh Elder Class 0; Sweet Vernal Class 0; Sweet Vernal Grass (G1) Ige <0.10 kU/L; Timothy Grass (G6) Ige <0.10 kU/L; Timothy Grass Class 0
[2021-03-06 22:53] LABS: Aspergillus Fumigatus, Igg Ab, <3.0 mg/L (<=102)
== END 2021-03-03 09:28 | disposition home or self-care (01) ==
PROVIDERS: PCP Nurse Practitioner Family; Visit Provider Internal Medicine Critical Care Medicine
DX: R06.02 Shortness of breath (principal); J45.909 Unspecified asthma, uncomplicated
CPT/HCPCS: 71046; 80053; 82785; 85025; 86003; 87635

== ENCOUNTER 2021-04-09 08:21 | Outpatient (CLI) | payer MEDICAID, SELFPAY ==
--- NOTE | 2021-04-09 08:35 | MR_ITS ---
WS: [id number] MRI LUMBAR SPINE NONCONTRAST TECHNIQUE: Sagittal T1, T2 and STIR imaging. Axial T1 and T2 imaging. CLINICAL INFORMATION: VERTEBROGENIC LOW BACK PAIN COMPARISON: MRI 2009 FINDINGS: Mild lumbar curve. No acute compression. No high-grade central canal stenosis. L1-L2: Tiny right proximal foraminal protrusion with slight contact of the right L1 nerve root. Spina l canal and foramen are patent. L2-L3: Mild eccentric osteophytic ridging. Mild left greater than right foraminal narrowing. Mild fac et arthropathy. Spinal canal is patent. L3-L4: Tiny left proximal foraminal protrusion with mild left foraminal narrowing. Spinal canal and r ight foramen are patent. Moderate facet arthropathy. L4-L5: No significant disc bulging. Moderate facet arthropathy with small facet effusions. Ligamentum flavum hypertrophy. Spinal canal and foramen are patent. L5-S1: Mild annular bulging. Left eccentric disc bulging with mild left foraminal narrowing. Spinal c anal and foramen are patent. Advanced facet arthropathy with small amount of edema in the facets comp atible with synovitis. Partially visualized degenerative arthritis and hypertrophic changes involving sacroiliac joints. Mild central canal stenosis in cervical spine seen on the stogie packer imaging at C3-C4 C5-C6 C6-C7 with sli ght indentation on cervical cord. This can be further evaluated with cervical spine MRI.Small nabothi an cysts in the cervix. MR/MR lumbar spine wo con* [id number] IMPRESSION: 1. Moderate to advanced facet arthropathy L4-5 and L5-S1 advanced for patient this age with small amount of facet edema compatible with synovitis. Facet arth ropathy was present previously but progressed since 2008. Recommend correlation with facet symptomatology. 2. Partially visualized degenerative arthritis and hypertrophic changes involv ing sacroiliac joints. 3. Tiny right proximal foraminal protrusion L1-L2 slightly impinges the exitin g right L1 nerve root. 4. Mild left L2-3 and left L3-4 foraminal narrowing. 5. Mild central canal stenosis in cervical spine seen on the stogie packer imaging at C3- C4 C5-C6 C6-C7 with slight indentation on cervical cord. This can be furthe r evaluatedA with cervical spine MRI.
--- NOTE | 2021-04-09 09:23 | XR_ITS ---
WS: [id number] LUMBAR SPINE FLEXION AND EXTENSION TECHNIQUE: 3 views of the lumbar spine: Lateral neutral, flexion, and extension views. CLINICAL INFORMATION: VERTEBROGENIC LOW BACK PAIN COMPARISON: None. FINDINGS: Trace anterolisthesis L4 on L5 measuring 2 mm and L5 on S1 measuring 3 mm. This increases on flexion to 3 mm at L4-5 and 5 mm L5-S1 with mild instability.This decreases slightly on extension. Advanced facet arthropathy L4-L5 and L5-S1 worse L5-S1. XR/XR lumbar spine f/e only [id number] IMPRESSION: 1. Trace anterolisthesis L4 on L5 measuring 2 mm and L5 on S1 measuring 3 mm 2. This increases on flexion to 3 mm at L4-5 and 5 mm L5-S1 with mild instabil ity. This decreases slightly on extension. 3. Advanced facet arthropathy L4-L5 and L5-S1 worse L5-S1
== END 2021-04-09 08:22 | disposition home or self-care (01) ==
PROVIDERS: PCP Nurse Practitioner Family; Visit Provider Nurse Practitioner
DX: M54.41 Lumbago with sciatica, right side (principal); M47.816 Spondylosis without myelopathy or radiculopathy, lumbar region; M47.817 Spondylosis without myelopathy or radiculopathy, lumbosacral region; M51.26 Other intervertebral disc displacement, lumbar region; M48.02 Spinal stenosis, cervical region
CPT/HCPCS: 72120; 72148

== ENCOUNTER → 2021-05-06 07:40 | Outpatient (BNVA) | payer MEDICAID, SELFPAY | PROVIDERS: PCP Nurse Practitioner Family; Visit Provider Psychiatry & Neurology Psychiatry | DX: Z47.89 Encounter for other orthopedic aftercare (principal) | CPT/HCPCS: 73560; 73565 ==

== ENCOUNTER → 2021-07-10 15:18 | Outpatient (BNVA) | payer MEDICAID, SELFPAY | PROVIDERS: PCP Nurse Practitioner Family; Visit Provider Psychiatry & Neurology Psychiatry | DX: F41.9 Anxiety disorder, unspecified (principal); F41.1 Generalized anxiety disorder | CPT/HCPCS: 99214 ==

== ENCOUNTER → 2021-07-31 10:29 | Outpatient (BNVA) | payer MEDICAID, SELFPAY | PROVIDERS: PCP Nurse Practitioner Family; Visit Provider Internal Medicine Critical Care Medicine | DX: J45.909 Unspecified asthma, uncomplicated (principal); F17.210 Nicotine dependence, cigarettes, uncomplicated; R05.3 Chronic cough | CPT/HCPCS: 99214 ==

== ENCOUNTER → 2021-08-06 09:24 | Outpatient (BNVA) | payer MEDICAID, SELFPAY | PROVIDERS: PCP Nurse Practitioner Family; Visit Provider Podiatrist Foot & Ankle Surgery | DX: M20.41 Other hammer toe(s) (acquired), right foot (principal); M20.42 Other hammer toe(s) (acquired), left foot; M92.60 Juvenile osteochondrosis of tarsus, unspecified ankle; M21.629 Bunionette of unspecified foot; M21.41 Flat foot [pes planus] (acquired), right foot; M21.42 Flat foot [pes planus] (acquired), left foot; G62.9 Polyneuropathy, unspecified | CPT/HCPCS: 99214 ==

== ENCOUNTER 2021-08-22 10:20 | Outpatient (CLI) | payer MEDICAID, SELFPAY ==
--- NOTE | 2021-08-22 10:38 | MM_ITS ---
WS: [id number] BILATERAL 3D TOMOSYNTHESIS DIGITAL SCREENING MAMMOGRAPHY WITH CAD CLINICAL INFORMATION: SCREENING HISTORY: Screening mammogram. No current complaints. COMPARISON: April 25, 2020 TECHNIQUE: Bilateral CC and MLO views. FINDINGS: Scattered fibroglandular densities bilaterally. Vascular calcification. Punctate calcifications. No s uspicious focal mass, asymmetry, calcifications, or architectural distortion. No evidence of malignan cy. MM/[place] [id number] IMPRESSION: BI-RADS: 2-Benign FOLLOW UP: 1 Year Follow-up Recommend return to annual screening mammography.
== END 2021-08-22 10:21 | disposition home or self-care (01) ==
LOC: RAD 10:21
PROVIDERS: PCP Nurse Practitioner Family; Visit Provider Nurse Practitioner Family
DX: Z12.31 Encounter for screening mammogram for malignant neoplasm of breast (principal)
CPT/HCPCS: 77063; 77067

== ENCOUNTER → 2021-09-09 13:19 | Outpatient (BNVA) | payer MEDICAID, SELFPAY | PROVIDERS: PCP Nurse Practitioner Family; Visit Provider Psychiatry & Neurology Psychiatry | DX: F41.9 Anxiety disorder, unspecified (principal); F41.1 Generalized anxiety disorder | CPT/HCPCS: 99214 ==

== ENCOUNTER 2021-09-23 10:00 | Outpatient (CLI) | payer MEDICAID, SELFPAY ==
--- NOTE | 2021-09-23 13:35 | PFTS_ITS ---
Date of Study:09/23/21 Date of Dictation: MECHANICS: Forced vital capacity (FVC) is normal. Forced expiratory volume in one second (FEV1) is normal. FEV1/FVC is normal. FLOW VOLUME LOOP: Reduced flow at all lung volumes. Improper performance of expiratory flow volume loop. LUNG VOLUMES: Total lung capacity (TLC) is normal. Residual volume (RV) is normal. DIFFUSING CAPACITY FOR CARBON MONOXIDE: Moderately reduced. INTERPRETATION: The prebronchodilator spirometry is consistent with mild restriction. The postbronchodilator spirometry is normal. There is a significant postbronchodilator response. Lung volumes are normal. Gas exchange (DLCO) is moderately reduced. MTDD
== END 2021-09-23 10:01 | disposition home or self-care (01) ==
PROVIDERS: PCP Nurse Practitioner Family; Visit Provider Internal Medicine Critical Care Medicine
DX: J45.909 Unspecified asthma, uncomplicated (principal)
CPT/HCPCS: 94060; 94726; 94729; J7614

== ENCOUNTER → 2021-09-29 08:51 | Outpatient (BNVA) | payer MEDICAID, SELFPAY | PROVIDERS: PCP Nurse Practitioner Family; Visit Provider Internal Medicine Critical Care Medicine | DX: J45.909 Unspecified asthma, uncomplicated (principal); F17.210 Nicotine dependence, cigarettes, uncomplicated | CPT/HCPCS: 99214 ==

== ENCOUNTER 2021-10-30 12:35 | Outpatient (CLI) | payer MEDICAID, SELFPAY ==
--- NOTE | 2021-10-30 13:00 | CT_ITS ---
WS: [id number] LDCT LUNG CANCER SCREENING TECHNIQUE: Noncontrast CT of the chest with coronal and sagittal reformatted images. CLINICAL INFORMATION: Lung cancer screening COMPARISON: None. DLP: 70.81 mGy.cm DIvol: Mean CTDIvol: 1.60 (mGy) All CT scans at [facility] use at least one of these dose optimization techniques: automat ed exposure control; mA and/or kV adjustment per patient size (includes targeted exams where dose is matched to clinical indication); or iterative reconstruction. FINDINGS: No suspicious pulmonary parenchymal abnormalities. Subsegmental atelectasis in the lingula. No focal pneumonia or pleural fluid. Normal caliber thoracic aorta. Aortic calcification. No mediastinal or hilar lymphadenopathy. No axil so lymphadenopathy. Adrenal glands are normal. Normal GE junction. CT/CT lung screening [id number] IMPRESSION: LUNG-RADS: 1-Negative FOLLOW UP: 12 Month: Continue annual screening with LDCT
== END 2021-10-30 12:36 | disposition home or self-care (01) ==
PROVIDERS: PCP Nurse Practitioner Family; Visit Provider Internal Medicine Critical Care Medicine
DX: Z12.2 Encounter for screening for malignant neoplasm of respiratory organs (principal); F17.200 Nicotine dependence, unspecified, uncomplicated
CPT/HCPCS: 71271

== ENCOUNTER → 2022-01-27 13:55 | Outpatient (BNVA) | payer MEDICAID, SELFPAY | PROVIDERS: PCP Nurse Practitioner Family; Visit Provider Podiatrist Foot & Ankle Surgery | DX: L85.1 Acquired keratosis [keratoderma] palmaris et plantaris (principal); M20.41 Other hammer toe(s) (acquired), right foot; M20.42 Other hammer toe(s) (acquired), left foot; M92.60 Juvenile osteochondrosis of tarsus, unspecified ankle; M21.629 Bunionette of unspecified foot; M21.41 Flat foot [pes planus] (acquired), right foot; M21.42 Flat foot [pes planus] (acquired), left foot; G62.9 Polyneuropathy, unspecified | CPT/HCPCS: 17110; 73630 ==

== ENCOUNTER → 2022-01-29 09:17 | Outpatient (BNVA) | payer MEDICAID, SELFPAY | PROVIDERS: PCP Nurse Practitioner Family; Visit Provider Internal Medicine Pulmonary Disease | DX: J45.909 Unspecified asthma, uncomplicated (principal); R06.09 Other forms of dyspnea; R07.9 Chest pain, unspecified; J44.9 Chronic obstructive pulmonary disease, unspecified; F17.210 Nicotine dependence, cigarettes, uncomplicated | CPT/HCPCS: 99214 ==

== ENCOUNTER → 2022-03-02 08:01 | Outpatient (BNVA) | payer MEDICAID, SELFPAY | PROVIDERS: PCP Nurse Practitioner Family; Visit Provider Podiatrist Foot & Ankle Surgery | DX: M20.41 Other hammer toe(s) (acquired), right foot (principal); M20.42 Other hammer toe(s) (acquired), left foot; M21.41 Flat foot [pes planus] (acquired), right foot; L85.1 Acquired keratosis [keratoderma] palmaris et plantaris; G62.9 Polyneuropathy, unspecified; M21.42 Flat foot [pes planus] (acquired), left foot; M92.60 Juvenile osteochondrosis of tarsus, unspecified ankle; M21.629 Bunionette of unspecified foot | CPT/HCPCS: 17110 ==

== ENCOUNTER 2022-04-10 06:32 | Outpatient (CLI) | payer MEDICAID, SELFPAY ==
[2022-04-10 07:54] VITALS: BMI 38.2
--- NOTE | 2022-04-10 07:56 | ECG_ITS ---
[facility] Test Date: 2022-04-10 Pat Name: Valery Rust Department: Room: Gender: Female Campus Administrative Assistant: : 1970 Requested By: Quang Jacksonr Palmer Order Number: [id number] Reji MD: Zackery Mendoza M.D. Interpretive Statements NAME OF STUDY: LEXISCAN SESTAMIBI STRESS TEST INDICATION: [Dyspnea, ] Procedure: At the baseline, the blood pressure was 134/94 mmHg with a heart rate of 88 bpm. The electrocardiogram showed normal sinus rhythm, normal axis with normal ST and T's. The Lexiscan was infused over a period of 20 seconds. A total of 0.4 mg of Lexiscan was infused. The stress phase was continued for a total of 5 minutes. Heart rate was at the end of stress phase was 101 bpm and a blood pressure of 117/76 mmHg. The EKG at the peak infusion revealed normal sinus rhythm with no significant ST-T wave changes. Sestamibi was injected 20 seconds after the Lexiscan infusion. Blood pressure at the end of recovery phase was 111/79 mmHg with a heart rate of 102 bpm. Conclusion: 1. Normal EKG response to Lexiscan infusion 2. No Lexiscan induced chest pain or cardiac arrhythmia. 3. Normal blood pressure and heart rate response. 4. Sestamibi/sestamibi perfusion scan pending; see separate report. Electronically Signed On 04-19-2022 20:12:25 MINE SUPERVISOR by Zackery Mendoza M.D. [id number]
--- NOTE | 2022-04-10 07:57 | NMCV_ITS ---
NM ester perf SPECT r/s* [id number] Valery Rust Age: 51 Gender: F : 1970 Exam Date: 04/10/2022 07:57 Ordering Phys: Quang Graf MD Technologist: MIGUEL Ramírez Exam Location: [facility] Indications: SHORTNESS OF BREATH STRESS TEST Please see separate stress test report in [facility] for full findings IMAGE PROTOCOL Rest/Stress 1 Lexiscan Day Radiopharmaceutical Dose (mCi) Administration Site Administered by Rest: Tc-99m 10.9 IV MIGUEL Ramírez Sestamibi Stress:Tc-99m 32.7 IV MIGUEL Hoff Sestamibi Rest: 10-Apr-2022 60 Discovery 630 Stress: 10-Apr-2022 30 Discovery 630 0.4mg Lexiscan. Supine position only as patient was unable to lay prone. SPECT RESULTS Technical Quality: Good Raw Data Analysis: Breast attenuation Image Corrections: No attenuation or motion correction applied Summed Stress Score: 5 Summed Rest Score: 7 Summed Difference Score: 1 PERFUSION FINDINGS There is a large sized, mostly fixed perfusion defect noted in apical lateral and inferolateral forrest. 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 FUNCTIONAL RESULTS (calculated via Gated SPECT) Stress Image LV EF (%): 72 Stress EDV (mL):92 TID: 1.15 Stress ESV (mL):26 FUNCTIONAL FINDINGS: There is normal left ventricular systolic function. IMPRESSIONS 1. Abnormal myocardial perfusion imaging with large sized prior infarct seen in the left circumflex artery territory with small area of susie-infarct ischemia 2. LV systolic function is normal Zackery Mendoza MD (Electronically Signed) Final Date: 11 April 2022 10:46 S
[2022-04-10] MEDS: regadenoson 0.4 Mg/5 ml Syringe IVP (09:09)
[2022-04-10 09:26] VITALS: BP 111/79; PULSE 99
== END 2022-04-10 06:33 | disposition home or self-care (01) ==
LOC: CDL 06:36
PROVIDERS: PCP Nurse Practitioner Family; Visit Provider Internal Medicine Pulmonary Disease
DX: R06.00 Dyspnea, unspecified (principal); R06.02 Shortness of breath
CPT/HCPCS: 36415; 78452; 96374; A9500; J2785

== ENCOUNTER → 2022-04-27 07:34 | Outpatient (BNVA) | payer MEDICAID, SELFPAY | PROVIDERS: PCP Nurse Practitioner Family; Visit Provider Podiatrist Foot & Ankle Surgery | DX: M20.41 Other hammer toe(s) (acquired), right foot (principal); M20.42 Other hammer toe(s) (acquired), left foot; M92.60 Juvenile osteochondrosis of tarsus, unspecified ankle; M21.621 Bunionette of right foot; M21.41 Flat foot [pes planus] (acquired), right foot; M21.42 Flat foot [pes planus] (acquired), left foot; G62.9 Polyneuropathy, unspecified; L85.1 Acquired keratosis [keratoderma] palmaris et plantaris | CPT/HCPCS: 99213 ==

== ENCOUNTER → 2022-04-30 12:43 | Outpatient (BNVA) | payer MEDICAID, SELFPAY | PROVIDERS: PCP Nurse Practitioner Family; Visit Provider Internal Medicine Pulmonary Disease | DX: J45.909 Unspecified asthma, uncomplicated (principal); R07.9 Chest pain, unspecified; J44.9 Chronic obstructive pulmonary disease, unspecified; F17.200 Nicotine dependence, unspecified, uncomplicated | CPT/HCPCS: 99214 ==

== ENCOUNTER → 2022-05-27 10:05 | Outpatient (BNVA) | payer MEDICAID, SELFPAY | PROVIDERS: PCP Nurse Practitioner Family; Visit Provider Internal Medicine Cardiovascular Disease | DX: R94.39 Abnormal result of other cardiovascular function study (principal); I10 Essential (primary) hypertension; J45.909 Unspecified asthma, uncomplicated; E78.5 Hyperlipidemia, unspecified; F17.210 Nicotine dependence, cigarettes, uncomplicated | CPT/HCPCS: 99205 ==

== ENCOUNTER 2022-06-03 14:06 | Outpatient (CLI) | payer MEDICAID, SELFPAY ==
--- NOTE | 2022-06-03 14:15 | USCV_ITS ---
Valery Rust Age: 51 Gender: F : 1970 Exam Date: 06/03/2022 14:37 Ordering Phys: Ladi Steele MD ([email or web address]) Technologist: Raven Gomez [place] [facility] [place]: CP BP: / HR: 71 Rhythm: Sinus Technical Quality: Adequate MEASUREMENTS (Male / Female) Normal Values 2D ECHO LV Diastolic Diameter PLAX 4.5 cm 4.2 - 5.9 / 3.9 - 5.3 cm LV Systolic Diameter PLAX 2.0 cm IVS Diastolic Thickness 1.5 cm 0.6 - 1.0 / 0.6 - 0.9 cm IVS Systolic Thickness 1.9 cm LVPW Diastolic Thickness 1.1 cm 0.6 - 1.0 / 0.6 - 0.9 cm LVPW Systolic Thickness 2.0 cm LVOT Diameter 2.1 cm LV Ejection Fraction 2D Teich 86.8 % LV Ejection Fraction MOD 2C 64.8 % LV Ejection Fraction 2C AL 66.3 % LA Diameter 2.4 cm LA Width 2.3 cm LA Height 4.0 cm RA Width 2.2 cm RA Height 4.3 cm Aorta at Sinotubular Diameter 2.9 cm IVC Diameter 1.2 cm M-MODE MV E Point Septal Separation 0.2 cm DOPPLER AV Peak Velocity 111.0 cm/s LVOT Peak Velocity 100.0 cm/s AV Area Cont Eq vti 3.1 cm squared AV Area Cont Eq pk 3.2 cm squared MV Peak Velocity 94.0 cm/s MV Area PHT 3.7 cm squared Mitral E to A Ratio 0.9 MV E' Velocity 43.5 cm/s Mitral E to MV E' Ratio 11.2 Mitral E to LV E' Lateral Ratio 8.9 Mitral E to LV E' Septal Ratio 15.1 TR Peak Velocity 99.0 cm/s TR Peak Gradient 3.9 mmHg Right Atrial Pressure 3.0 mmHg Pulmonary Artery Systolic Pressu 6.9 mmHg PV Peak Velocity 75.0 cm/s RV Acceleration Time 0.2 s RV Ejection Time 0.4 s RV AcT/ET 0.5 FINDINGS Left Ventricle Normal left ventricular size and systolic function, EF 58 %. Mild left ventricular hypertrophy. Grade I/IV diastolic dysfunction (abnormal relaxation filling pattern), normal to mildly elevated filling pressures. Right Ventricle The right ventricle is normal in size and function. Right Atrium The right atrium is normal in size. Left Atrium The left atrium is normal in size. Mitral Valve Thickened mitral valve. Aortic Valve No gross abnormalities noted Tricuspid Valve No gross abnormalities noted Pulmonic Valve Pulmonic valve not well visualized. Pericardium Normal pericardium without effusion. Aorta Normal aortic annulus size. IVC The inferior vena cava appears normal. CONCLUSIONS Normal left ventricular size and systolic function, EF 58 %. Mild left ventricular hypertrophy. Grade I/IV diastolic dysfunction (abnormal relaxation filling pattern), normal to mildly elevated filling pressures. Thickened mitral valve. There is no pericardial effusion. There are no intracardiac masses. No similar previous studies are available for comparison Dr Ladi Steele MD [facility] (Electronically Signed) Final Date: 06 June 2022 14:20 S
== END 2022-06-03 14:07 | disposition home or self-care (01) ==
LOC: RAD 14:10
PROVIDERS: PCP Nurse Practitioner Family; Visit Provider Internal Medicine Cardiovascular Disease
DX: R06.09 Other forms of dyspnea (principal); R07.9 Chest pain, unspecified
CPT/HCPCS: 93306

== ENCOUNTER 2022-06-24 06:13 | Outpatient (CLI) | payer MEDICAID, SELFPAY ==
[2022-06-23 13:54] VITALS: BMI 39.3
[2022-06-24] VITALS (22 sets, daily range): BP systolic 117–163; BP diastolic 69–114; PULSE 64–83; RESP 16–21; O2SAT 91–100
--- NOTE | 2022-06-24 06:54 | W.PM.OPSUD ---
Surgery/Procedure H&P Update DATE OF PROCEDURE: June 24, 2022 DATE H&P PERFORMED: 05/27/22 H&P UPDATE INFORMATION: I have reviewed H&P completed within last 30 days, I have examined patient prior to procedure and No changes to prior documentation PREOP DIAGNOSIS: abnormal mpi/ SOB PRIMARY INDICATION FOR PROCEDURE: CP/ SOB/ abnormal MPI PLANNED PROCEDURE: Operation Date: 06/24/22 08:00 Proposed Procedures p [facility] 14506,R94.39(Left) - Ladi Steele MD PATIENT REASSESSED PRIOR TO SEDATION, WITH NO CHANGE NOTED: Yes PHYSICAL EXAM: alert, oriented x 3, clear to auscultation bilaterally and regular rate & rhythm AIRWAY EVAL/ANESTHESIA PLAN: normal airway, see other exam findings, ASA III, Local Anesthesia, Risks, benefits & alternatives of sedation and/or procedure discussed and Patient agrees to continue as planned ADDITIONAL INFORMATION: Reactive airway disease
[2022-06-24] MEDS: diphenhydrAMINE 50 mg Capsule PO (07:00)
[2022-06-24] MEDS: aspirin 325 mg Tablet PO (07:00)
[2022-06-24 07:16] LABS: Basophils # 0.1 10^3/uL (0.0-0.1); Basophils % 0.4 %; Eosinophils # 0.2 10^3/uL (0.0-0.8); Eosinophils % 1.2 %; Hematocrit 42.8 % (37.0-47.0); Hemoglobin 13.8 g/dL (11.5-15.3); Lymphocytes # 4.9 10^3/uL (0.8-4.8); Lymphocytes % 30.1 %; Mean Corpuscular HGB Conc 32.2 g/dL (30.0-36.0); Mean Corpuscular Hemoglobin 30.5 pg (28.0-34.0); Mean Corpuscular Volume 94.7 fl (81-99); Mean Platelet Volume 9.8 fL (7.4-10.4); Monocytes # 1.2 10^3/uL (0.2-0.9); Monocytes % 7.6 %; Neutrophils # 9.58 10^3/uL (1.8-7.7); Neutrophils % 59.3 %; Nucleated Red Blood Cells % 0 %; Platelet Count 315 10^3/cmm (130-400); Red Blood Count 4.52 10^6/uL (4.1-5.3); Red Cell Distribution Width 13.5 % (12.1-15.1); White Blood Count 16.2 10^3/uL (4.0-10.0)
[2022-06-24 07:23] LABS: INR 0.92 (0.8-1.2)
[2022-06-24 07:31] LABS: Anion Gap 15.8 (5-19); Blood Urea Nitrogen 20 mg/dL (6-20); Calcium 9.2 mg/dL (8.5-10.5); Carbon Dioxide 28 mmol/L (22-29); Chloride 106 mmol/L (98-107); Glomerular Filtration Rate 47.6 mL/min (90-130); Glucose 106 mg/dL (65-115); Osmolality Calculated 305 mOsm/kg (285-295); Potassium 3.8 mmol/L (3.5-5.1); Sodium 146 mmol/L (136-145)
--- NOTE | 2022-06-24 07:36 | XACV_ITS ---
Exam Room: 2 Ht: 163 cm Wt: 104 kg BSA: 2.22 m2 Gender: Female : 1970 Any Known Allergies: Penicillins Exam Priority: Routine Procedure(s): Procedure Description: Diagnostic procedure Procedure Description: Left Heart Catheterization Procedure Description: Left ventriculography Procedure Description: Coronary Angiography Cedric CASTELLON; Diagnostic Cath Status: Elective Diagnostic Findings * Left main is a medium caliber vessel with no significant stenotic lesions. * The left anterior descending artery is a medium caliber low centimeter appears to wraparound the LV apex medially.. No significant stenotic lesions were noted. * Left circumflex artery is a medium caliber vessel with no significant stenotic lesions. * The right coronary artery is a medium to large caliber dominant vessel with no significant stenotic lesions. It has a low and posterior takeoff. Conclusions 1. 59-year-old white male with history of hypertension, dyslipidemia, smoking abuse, reactive airway disease, presented with increasing episodes of chest pain. She had a Myocardial perfusion imaging which was found to have areas of fixed defects with the small areas of reversible defects, in the distribution of the left circumflex artery. Because of her ongoing worsening symptoms, in order to further evaluate her coronary status, a cardiac catheterization was recommended. Patient underwent left heart catheterization with left and right coronary angiogram and LV angiogram today. The findings are as follows. 2. 1. No significant obstructive coronary artery disease.2. Normal LV ejection fraction of 60%. No wall motion normalities. Elevated LVEDP of 24 mmHg.. Diagnostic RX Recommendation: medical therapy and/or counseling LV EDP: 24 mmHg Ventriculography Ejection Fraction: 55.0 % Left Ventriculography Findings: * The exam was performed in the GUTIERREZ projection. The LV ejection fraction was around 55%. There is no severe mitral valve prolapse or mitral regurgitation. No filling defects were noted. Pressures Phase:Rest AO : 134 / 82 ( 105 ) @ 9:25:00 AM 134 / 82 ( 106 ) @ 9:25:00 AM LV : 132 / 5 / 24 @ 9:23:00 AM 137 / 15 / 34 @ 9:25:00 AM 139 / 13 / 31 @ 9:25:00 AM Valves Phase:DefaultPhase AV : 6.0 @ 8:32:44 AM AV Mean Gradient: 7.0 @ 8:32:44 AM 7.0 @ 8:32:44 AM Clinical Evaluation EBL: 5mL-10mL Procedural Details Procedure Consent Obtained. Admit Source: Out Patient. Pre-Procedure Time Out. Identified patient by full name and date of as verbalized by the patient/guarantor. Does the consent match the physician's order: Yes. Accurate & Complete Informed Consent: Yes. Inpatient/Outpatient History & Physical on Chart: Yes. If H&P is completed, is and addenduem needed: No; If yes, is the addendum complete: N/A. Visualize and Verify Site with Patient/Guarantor: N/A. Relevant Radiology Images available: No. The risks, benefits, and alternatives of sedation and/or procedure were discussed by physician. The patient agrees to continue. Procedure started. [facility] Clinical Fraility Score: 3: Managing Well. [employer]iconductor Packages Leak Tester Indications: Worsening Angina. Chest Pain Symptom Assessment: Atypical Angina. Correct patient, site and procedure confirmed by cath team. Current diagnosis: Chest Pain, Abnormal stress test. PERRLA. Strong, equal hand social media assistant bilaterally. Lungs clear x 5 lobes. IV Site on Arrival: 20 gauge in the right anticubital. IV Fluids: 0.9% NaCl at75ml/hr. 0 mL infused prior to labor relations worker. Pre Procedural Pulses: right dorsalis pedis was 3+. Pre Procedural Pulses: left dorsalis pedis was Doppled. Pre Procedural Pulses: bilateral posterior tibial was Doppled. Pre Procedural Pulses: bilateral radial was 2+. Oxygen started at 2liters/min via nasal canula. right radial was prepped with chloroprep then draped in the usual sterile fashion. right groin was prepped with chloroprep then draped in the usual sterile fashion. Physician notified. Baseline sample Acquired. HR: 75 BPM. Physician arrived. Physician scrubbed in. Immediate Pre-Procedure Time Out. Correct Patient: Yes; Correct Procedure: Yes; Correct Site: Yes; Correct Patient Position: Yes; Correct Supplies: Yes; Dried Flammable Prep: Yes; Blood Products Available: N/A;. Lidocaine 1% infiltrated to the right radial. Arterial access obtained. A 5 uzbek Matty catheter in over wire. Multiple views taken of left coronary artery. Catheter redirected to the RCA. Catheter removed over the exchange wire. A 5 uzbek JR4 catheter in over wire. Multiple views taken of right coronary artery. Catheter removed over the exchange wire. A 5 uzbek Angled Pig catheter in over wire. IV NS rate changed to 175ml/hr. EDP Sample taken: LV 132/5,24; HR: 69 BPM; SpO2: 98%. LV gram performed in GUTIERREZ @ 10 mL/second for a total of 20 mL. EDP Sample taken: LV 137/15,34; HR: 67 BPM; SpO2: 98%. Pullback taken: LV 139/13,31; AO 134/82(105); Mean: 7mmHg, Peak to Peak: 6mmHg, SEP: 21sec/min; HR: 68 BPM; SpO2: 98%. Catheter removed over the exchange wire. Physician scrubbed out. Physician review of cine films. A TR Band was successful obtaining hemostatsis at the Right Radial artery insertion site. Post Procedure: Pulses reassessed and unchanged. PERRLA. Strong, equal hand social media assistant bilaterally. No VTE prophylaxis required. Medication's Wasted: Lidocaine 1% = 2 mL. Medication's Wasted: Nitro = 49.8 mg. Medication's Wasted: Heparin = 1000 unit. Medication's Wasted: Other = Versed 1mg. Medication's Wasted: Other = Fentanyl 50 mcg. Total IV fluids: 285 mL. Post-op diagnosis: Normal Coronaries, High EDP. Complications: None. Estimated blood loss: 5mL-10mL. Responsiveness - Normal response to verbal stimuli; alert and oriented, PERRLA. Airway - Unaffected, no intervention required; spontaneous ventilation. Circulation: W/N/L, pulses unchanged. Nausea/Vomiting: No. Procedure completed. Patient transferred by wheelchair to CPRU. Vital chart was stopped. Access Site Site: Right Radial artery Sheath Size: 6 Fr Hemostasis Method: TR Band Hemostasis Success: Successful Procedure Medications Start: 7:52 AM Stop: 7:52 AM Medication: 0.9% Saline Amount: 250 ml Route: I.V. bolus Start: 7:53 AM Stop: 7:53 AM Medication: Versed Amount: 1 mg Route: I.V. Start: 7:53 AM Stop: 7:53 AM Medication: Fentanyl Amount: 50 mcg Route: I.V. Start: 7:57 AM Stop: 7:57 AM Medication: Versed Amount: 1 mg Route: I.V. Start: 8:05 AM Stop: 8:05 AM Medication: Versed Amount: 1 mg Route: I.V. Start: 8:07 AM Stop: 8:07 AM Medication: Verapamil Amount: 5 mg Route: I.A. Start: 8:07 AM Stop: 8:07 AM Medication: Nitrogylcerin Amount: 200 mcg Route: I.A. Start: 8:11 AM Stop: 8:11 AM Medication: Heparin Amount: 5000 units Route: I.V. I, the attending physician, have reviewed and verified all procedure medications. Yes, all medications given per verbal order History/Risk Factors Hypertension: Yes Dyslipidemia: Yes Peripheral Arterial Disease (PAD): No Myocardial Infarction (DE): No Obesity: Yes Renal Disease: No Tobacco Use: Current/Recent(w/in 1 year) Prior Interventions PCI: No CABG: No Valve Surgery: No Report Signatures Finalized by Dr Ladi Steele MD [facility] on 06/25/2022 06:34 PM
--- NOTE | 2022-06-24 09:00 | PC.NURSE ---
Transfer orders received. TR Band on patients right wrist clean, dry, et intact. No drainage or hematoma noted. Vitals stable. Report given to CRISTELA Herrera. Patient transferred from CPRU to CSU via wheelchair. All belonging sent with patient.
[2022-06-24 09:12] LABS: Amphetamines Screen Urine Negative (Negative); Barbiturates Screen Urine Negative (Negative); Benzodiazepines Screen Urine Negative (Negative); Cocaine Screen Urine Negative (Negative); Opiate Screen Urine Negative (Negative); PCP Screen Urine Negative (Negative); THC Screen Urine Negative (Negative)
[2022-06-24 09:15] LABS: Add Urine Microscopic? YES; Bilirubin Urine 1+ (Negative); Blood Urine Neg (Negative); Glucose Urine UA Norm (Normal); Ketones Urine Negative (Negative); Leukocyte Esterase Urine 2+ (Negative); Nitrate Urine Negative (Negative); Protein Urine Trace (Negative); Specific Gravity, Urine 1.015 (1.005-1.030); Urine Appearance SL Hazy (CLEAR); Urine Color Dark Yellow (Yellow); Urobilinogen Urine 1 mg/dL (Negative); pH Urine 5 (5-7)
[2022-06-24 09:22] LABS: Add Urine Culture? No; Bacteria Urine 1+ /hpf; Hyaline Casts Urine 0-4 /lpf; Mucus Urine TRACE /hpf; RBC Urine 0-4 /hpf (0-2); Squamous Epithelial Cell Urine 0-4 /hpf (0-5)
[2022-06-24] MEDS: nitroglycerin 1 gm/inch oint Pkt 1 INCH TOPICAL (09:33)
[2022-06-24] MEDS: HYDROcodone-acetaminophen 10-325 mg Tablet 1 TAB PO ×2 (10:32→18:38)
[2022-06-24] MEDS: ipratropium-albuterol 3 mL Neb INHALATION ×3 (11:20→21:09)
[2022-06-24] MEDS: fentaNYL 50 mcg/mL INJ 2mL 25 MCG IVP (11:54)
--- NOTE | 2022-06-24 13:35 | USCV_ITS ---
Valery Rust Age: 51 Gender: F : 1970 Exam Date: 06/24/2022 16:29 Ordering Phys: Ladi Steele MD ([email or web address]) Technologist: CT Exam Location: [facility] – [place] Indication: pain PROCEDURES: Venous duplex imaging was performed in only the left lower extremity. The following venous structures were evaluated: common femoral vein, profunda vein, proximal portion of the greater saphenous vein, superficial femoral vein, and the popliteal vein. In addition, the posterior tibial and peroneal trunk were evaluated. On the left side, the common femoral, superficial femoral, profunda femoral, popliteal, posterior tibial, greater saphenous veins, and the peroneal trunk were identified and interrogated in the standard fashion. These veins were found to be easily compressible with spontaneous blood flow. No evidence of insufficiency or thrombus noted. FINDINGS: normal us CONCLUSIONS No evidence of left lower extremity DVT. Freeman Borges MD (Electronically Signed) Final Date: 24 June 2022 16:58 S
--- NOTE | 2022-06-24 13:37 | CT_ITS ---
WS: [id number] CT chest wo con [id number] HISTORY: chest pain TECHNIQUE: Axial imaging performed through the thorax. Coronal and sagittal reformats are submitted. All CT scans at [facility] use at least one of these dose optimization techniques: automated exposure control; mA and/or kV adjustment per patient size (includes targeted exams where dose is mat ched to clinical indication); or iterative reconstruction. CONTRAST: Omnipaque 350; 100 mL IV. DLP: 629.15 mGy.cm COMPARISON: 10/30/2021 Lungs and central airway: Subsegmental linear atelectasis at the lung bases. No mass or nodule. Pleura: Normal. No pleural effusion. Heart and pericardium: Normal size heart with no pericardial effusion. Mediastinum and kimberly: No mediastinum or hilar adenopathy. Vessels: Normal size aortic and pulmonary artery. No coronary artery calcifications. Chest wall and lower neck: No soft tissue masses. Upper abdomen: Increased density within the visualized renal pelves. Probably from the recent cathete rization and IV contrast. No adrenal mass. Osseous structures: No destructive process. CT/CT chest wo con [id number] IMPRESSION: 1. No mediastinal hematoma. 2. No pneumothorax. 3. No pneumonia.
--- NOTE | 2022-06-24 15:40 | PC.NURSE ---
pt arrived from construction laborer at 0912. bruising noticed above wrist but no hematoma felt. good distal radial pulse on palpation. TR band started to be removed at 1036 -1; 1045 - 2; 1050 - 2; 1055 - 2; 1107 -3; 1127 - 3; 1142 - TR band removed and dressing placed.
[2022-06-24] MEDS: sodium chloride 0.9% 1,000 ML 75 ML IV (17:40)
[2022-06-24] MEDS: methocarbamol 500 mg Tablet PO (18:34)
[2022-06-24] MEDS: atorvastatin 40 mg Tablet PO (18:34)
[2022-06-24] MEDS: metoprolol tartrate 25 mg Tablet PO (18:34)
[2022-06-24] MEDS: carBAMazepine XR (12 HR) 200 mg Tablet PO (18:41)
[2022-06-24] MEDS: budesonide 0.5 mg/2 mL Neb INHALATION (21:08)
[2022-06-24] MEDS: temazepam 15 mg Capsule PO (23:48)
[2022-06-25 00:24] VITALS: BP 135/81; PULSE 75; RESP 15; TEMP 36.8; O2SAT 95
[2022-06-25 04:00] VITALS: BP 132/76; PULSE 72; RESP 18; TEMP 36.6; O2SAT 94
[2022-06-25 05:20] LABS: Anion Gap 11.8 (5-19); Blood Urea Nitrogen 20 mg/dL (6-20); Calcium 8.7 mg/dL (8.5-10.5); Carbon Dioxide 29 mmol/L (22-29); Chloride 108 mmol/L (98-107); Glomerular Filtration Rate 75.9 mL/min (90-130); Glucose 98 mg/dL (65-115); Osmolality Calculated 303 mOsm/kg (285-295); Potassium 3.8 mmol/L (3.5-5.1); Sodium 145 mmol/L (136-145)
[2022-06-25 06:00] VITALS: PULSE 78
[2022-06-25] MEDS: budesonide 0.5 mg/2 mL Neb INHALATION (07:26)
[2022-06-25] MEDS: ipratropium-albuterol 3 mL Neb INHALATION (07:26)
[2022-06-25 07:28] VITALS: PULSE 72; RESP 18; O2SAT 93
[2022-06-25 07:31] VITALS: BP 135/97; PULSE 73; RESP 18; TEMP 36.9; O2SAT 90
[2022-06-25] MEDS: pantoprazole DR 40 mg Tablet PO (08:16)
[2022-06-25] MEDS: hydroCHLOROthiazide 25 mg Tablet 12.5 MG PO (08:16)
[2022-06-25] MEDS: lisinopril 20 mg Tablet 40 MG PO (08:16)
[2022-06-25] MEDS: methocarbamol 500 mg Tablet PO (08:16)
[2022-06-25] MEDS: carBAMazepine XR (12 HR) 200 mg Tablet PO (08:17)
[2022-06-25] MEDS: metoprolol tartrate 25 mg Tablet PO (09:32)
[2022-06-25] MEDS: amlodipine 10 mg Tablet PO (09:32)
== END 2022-06-25 09:51 | disposition home or self-care (01) ==
LOC: CCL 06:16 → CSU 11:34
PROVIDERS: Family Provider Podiatrist Foot & Ankle Surgery; PCP Nurse Practitioner Family; Visit Provider Internal Medicine Cardiovascular Disease
DX: R94.39 Abnormal result of other cardiovascular function study (principal); R06.02 Shortness of breath; I10 Essential (primary) hypertension; E78.5 Hyperlipidemia, unspecified; Z79.891 Long term (current) use of opiate analgesic; F41.9 Anxiety disorder, unspecified; F17.210 Nicotine dependence, cigarettes, uncomplicated; J45.909 Unspecified asthma, uncomplicated; E66.9 Obesity, unspecified; Z68.39 Body mass index [BMI] 39.0-39.9, adult
CPT/HCPCS: 36415; 71250; 80048; 80306; 81001; 81015; 85025; 85610; 93458; 93971; 94640; 96361; 96365; 96367; 96376; 99152; 99153; C1769; C1887; C1894; J1644; J2250; J3010; J3490; J7030; J7626; Q0163; Q9967

== ENCOUNTER → 2022-07-02 15:17 | Outpatient (BNVA) | payer MEDICAID, SELFPAY | PROVIDERS: Family Provider Podiatrist Foot & Ankle Surgery; PCP Nurse Practitioner Family; Visit Provider Nurse Practitioner Family | DX: I10 Essential (primary) hypertension (principal); E78.5 Hyperlipidemia, unspecified; F17.210 Nicotine dependence, cigarettes, uncomplicated; Z82.49 Family history of ischemic heart disease and other diseases of the circulatory system | CPT/HCPCS: 36415; 80048; 99214 ==

== ENCOUNTER 2022-07-14 08:56 | Outpatient (CLI) | payer OTHER, SELFPAY ==
[2022-07-14 09:21] VITALS: PULSE 70; RESP 18; O2SAT 98
[2022-07-14] MEDS: albuterol 2.5 mg/3 mL Neb INHALATION (09:21)
[2022-07-14 09:26] VITALS: PULSE 72
== END 2022-07-14 08:57 | disposition home or self-care (01) ==
LOC: RT 08:57
PROVIDERS: PCP Nurse Practitioner Family; Visit Provider Dermatology
DX: J44.9 Chronic obstructive pulmonary disease, unspecified (principal)
CPT/HCPCS: 94060; J7613

== ENCOUNTER → 2022-07-29 14:49 | Outpatient (BNVA) | payer MEDICAID, OTHER, SELFPAY | PROVIDERS: PCP Nurse Practitioner Family; Visit Provider Podiatrist Foot & Ankle Surgery | DX: G57.62 Lesion of plantar nerve, left lower limb (principal); M20.41 Other hammer toe(s) (acquired), right foot; M20.42 Other hammer toe(s) (acquired), left foot; M21.621 Bunionette of right foot; M21.41 Flat foot [pes planus] (acquired), right foot; M21.42 Flat foot [pes planus] (acquired), left foot; G62.9 Polyneuropathy, unspecified | CPT/HCPCS: 99214 ==

== ENCOUNTER → 2022-08-04 11:47 | Outpatient (BNVA) | payer MEDICAID, SELFPAY | PROVIDERS: PCP Nurse Practitioner Family; Visit Provider Internal Medicine Cardiovascular Disease | DX: R06.02 Shortness of breath (principal); J44.9 Chronic obstructive pulmonary disease, unspecified; I10 Essential (primary) hypertension; E78.5 Hyperlipidemia, unspecified; R07.9 Chest pain, unspecified; G62.9 Polyneuropathy, unspecified; M79.605 Pain in left leg; M79.89 Other specified soft tissue disorders; F17.210 Nicotine dependence, cigarettes, uncomplicated | CPT/HCPCS: 36415; 80048; 83880; 99214 ==

== ENCOUNTER 2022-08-06 09:12 | Outpatient (CLI) | payer MEDICAID, SELFPAY ==
--- NOTE | 2022-08-06 09:30 | USCV_ITS ---
Valery Rust Age: 52 Gender: F : 1970 Exam Date: 08/06/2022 09:37 Ordering Phys: Ladi Steele MD ([email or web address]) Technologist: Selvin Loza [place] [facility] [place]: leg pain and swelling Risk Factors: Previous Vascular Surgery: RIGHT LEFT BP: 108.0 / 81.00 BP: 116.0/ 71.00 0 0 Waveform Velocity (cm/s) Velocity (cm/s) Waveform Triphasic 104.7 Iliac Prox 136.3 Triphasic Triphasic 114.8 Iliac Mid 130.0 Triphasic Triphasic 107.2 Iliac Distal 107.2 Triphasic Triphasic 94.9 PATIENT TRANSPORTATION DRIVER 113.6 Triphasic Triphasic 101.2 SFA Prox 90.7 Triphasic Triphasic 76.1 SFA Mid 84.3 Triphasic Triphasic 75.2 SFA Dist 59.0 Triphasic Triphasic 55.5 POP 53.4 Triphasic Biphasic 36.9 STEEL PAN FORM PLACING SUPERVISOR 61.8 Triphasic Triphasic 66.9 DPA 54.8 Biphasic FINDINGS Patent iliac, femoral, popliteal, posterior tibial and dorsalis pedis arteries bilaterally Normal/near normal Doppler waveforms and velocities bilaterally ABIs not performed Minimal plaques in the popliteal arteries bilaterally CONCLUSIONS 1. Patent lower extremity arteries bilaterally with near normal Doppler waveforms and Doppler velocities suggesting no significant arterial obstruction. 2. Minimal plaques in the popliteal arteries bilaterally Dr Ladi Steele MD [facility] (Electronically Signed) Final Date: 07 Aug 2022 17:06 S
== END 2022-08-06 09:13 | disposition home or self-care (01) ==
PROVIDERS: PCP Nurse Practitioner Family; Visit Provider Internal Medicine Cardiovascular Disease
DX: M79.605 Pain in left leg (principal); M79.604 Pain in right leg; M79.89 Other specified soft tissue disorders; I73.9 Peripheral vascular disease, unspecified
CPT/HCPCS: 93925

== ENCOUNTER 2022-09-01 06:13 | Outpatient (CLI) | payer MEDICAID, SELFPAY ==
--- NOTE | 2022-09-01 06:32 | US_ITS ---
WS: [id number] ULTRASOUND SOFT TISSUES LEFT foot HISTORY: Determine if patient has a mortons neuroma COMPARISON: None available. TECHNIQUE: 2-D and color Doppler imaging is submitted. Ultrasound is directed between the metatarsal heads of the LEFT foot. Between the third and fourth me tatarsal heads there is a very subtle hypoechoic area measuring 5 x 3 x 3 mm. US/US soft tissue/extremity [id number] IMPRESSION: Suspicious for small Livingston's neuroma between the third and fourth metatarsal h iwona.
== END 2022-09-01 06:14 | disposition home or self-care (01) ==
LOC: RAD 06:13
PROVIDERS: PCP Nurse Practitioner Family; Visit Provider Podiatrist Foot & Ankle Surgery
DX: G57.62 Lesion of plantar nerve, left lower limb (principal)
CPT/HCPCS: 76882

== ENCOUNTER → 2022-10-15 12:30 | Outpatient (BNVA) | payer MEDICAID, SELFPAY | PROVIDERS: PCP Nurse Practitioner Family; Visit Provider Podiatrist Foot & Ankle Surgery | DX: M20.41 Other hammer toe(s) (acquired), right foot; M20.42 Other hammer toe(s) (acquired), left foot; M21.41 Flat foot [pes planus] (acquired), right foot; M21.42 Flat foot [pes planus] (acquired), left foot; G62.9 Polyneuropathy, unspecified; M77.42 Metatarsalgia, left foot; M21.621 Bunionette of right foot | CPT/HCPCS: 99213 ==

== ENCOUNTER → 2022-11-09 10:30 | Outpatient (BNVA) | payer MEDICAID, SELFPAY | PROVIDERS: PCP Nurse Practitioner Family; Visit Provider Internal Medicine Pulmonary Disease | DX: G47.19 Other hypersomnia (principal); R07.9 Chest pain, unspecified; J44.9 Chronic obstructive pulmonary disease, unspecified; J45.909 Unspecified asthma, uncomplicated; I10 Essential (primary) hypertension; R60.0 Localized edema; F17.210 Nicotine dependence, cigarettes, uncomplicated | CPT/HCPCS: 99214 ==

== ENCOUNTER → 2022-12-04 10:51 | Outpatient (BNVA) | payer MEDICAID, SELFPAY | PROVIDERS: PCP Nurse Practitioner Family; Visit Provider Nurse Practitioner Family | DX: M25.562 Pain in left knee; Z98.890 Other specified postprocedural states | CPT/HCPCS: 73562; 99213 ==

== ENCOUNTER 2022-12-18 07:35 | Outpatient (CLI) | payer MEDICAID, SELFPAY ==
--- NOTE | 2022-12-18 08:00 | NM_ITS ---
WS: [id number] THREE-PHASE BONE SCAN HISTORY: Left knee pain COMPARISON: 12/04/2022 radiographs. Patient is is injected with 24.2 mCi Tc99m HDP intravenously. Immediate angiographic phase imaging is performed over the area of concern. Static blood pool imaging also performed. Two-hour whole-body sc intigrams performed in anterior and posterior projections. Additional large field of view imaging sub mitted as necessary. Normal angiographic and blood pool imaging involving the LEFT knee and proximal LEFT tibia. There is no increased activity on the early imaging surrounding the screws. There is very minimal increased uptake in the proximal LEFT tibia. This is not focally localized to t he screw placement. May be due to a osteoclastic activity. There is mild bilateral increased uptake i nvolving the knees, greatest at the lateral condyle of the RIGHT knee. Probably degenerative. Additio nal focal areas of increased uptake at the ankle joints, glenohumeral joints and AC joints from arthr itis. Normal uptake within the kidneys and soft tissues. IMPRESSION: 1. There is no evidence for osteomyelitis or cellulitis involving the LEFT knee. 2. Mild increased uptake in the proximal LEFT tibia on the delayed imaging. Not localized at the orth opedic screws.
== END 2022-12-18 07:36 | disposition home or self-care (01) ==
LOC: RAD 07:36
PROVIDERS: PCP Nurse Practitioner Family; Visit Provider Nurse Practitioner Family
DX: M79.605 Pain in left leg (principal); M79.89 Other specified soft tissue disorders
CPT/HCPCS: 78315; A9561

== ENCOUNTER → 2023-01-08 09:28 | Outpatient (BNVA) | payer MEDICAID, SELFPAY | PROVIDERS: PCP Nurse Practitioner Family; Visit Provider Physician Assistant | DX: M94.262 Chondromalacia, left knee (principal) | CPT/HCPCS: 20610; 99213; J3301 ==

== ENCOUNTER → 2023-01-14 08:58 | Outpatient (BNVA) | payer MEDICAID, SELFPAY | PROVIDERS: PCP Nurse Practitioner Family; Visit Provider Podiatrist Foot & Ankle Surgery | DX: M77.51 Other enthesopathy of right foot and ankle (principal); M20.41 Other hammer toe(s) (acquired), right foot; M20.42 Other hammer toe(s) (acquired), left foot; M21.621 Bunionette of right foot; M21.41 Flat foot [pes planus] (acquired), right foot; M21.42 Flat foot [pes planus] (acquired), left foot; G62.9 Polyneuropathy, unspecified; M77.42 Metatarsalgia, left foot | CPT/HCPCS: 20600; J1100; J3490 ==

== ENCOUNTER → 2023-02-16 13:53 | Outpatient (BNVA) | payer MEDICAID, SELFPAY | PROVIDERS: PCP Nurse Practitioner Family; Visit Provider Nurse Practitioner Family | DX: I10 Essential (primary) hypertension (principal); F17.210 Nicotine dependence, cigarettes, uncomplicated | CPT/HCPCS: 99213 ==

== ENCOUNTER → 2023-04-21 11:22 | Outpatient (BNVA) | payer MEDICAID, SELFPAY | PROVIDERS: PCP Nurse Practitioner Family; Visit Provider Podiatrist Foot & Ankle Surgery | DX: G62.9 Polyneuropathy, unspecified (principal); M77.42 Metatarsalgia, left foot; M20.41 Other hammer toe(s) (acquired), right foot; M20.42 Other hammer toe(s) (acquired), left foot; M21.621 Bunionette of right foot; M21.41 Flat foot [pes planus] (acquired), right foot; M21.42 Flat foot [pes planus] (acquired), left foot; M77.51 Other enthesopathy of right foot and ankle | CPT/HCPCS: 99213 ==

== ENCOUNTER → 2023-05-06 15:17 | Outpatient (BNVA) | payer MEDICAID, SELFPAY | PROVIDERS: PCP Nurse Practitioner Family; Visit Provider Student in an Organized Health Care Education/Training Program | DX: M17.12 Unilateral primary osteoarthritis, left knee | CPT/HCPCS: 73560; 73565; 99214 ==

== ENCOUNTER → 2023-05-17 09:06 | Outpatient (BNVA) | payer MEDICAID, SELFPAY | PROVIDERS: PCP Nurse Practitioner Family; Visit Provider Podiatrist Foot & Ankle Surgery | DX: G62.9 Polyneuropathy, unspecified (principal); M77.42 Metatarsalgia, left foot; M20.41 Other hammer toe(s) (acquired), right foot; M20.42 Other hammer toe(s) (acquired), left foot; M21.41 Flat foot [pes planus] (acquired), right foot; M21.42 Flat foot [pes planus] (acquired), left foot; M77.51 Other enthesopathy of right foot and ankle; M21.621 Bunionette of right foot | CPT/HCPCS: 99213 ==

== ENCOUNTER 2023-05-25 07:07 | Outpatient (CLI) | payer MEDICAID, SELFPAY ==
--- NOTE | 2023-05-25 07:15 | MR_ITS ---
WS: [id number] MRI LEFT KNEE HISTORY: knee pain COMPARISON: 04/25/2020 Anterior cruciate ligament: Mucoid degeneration the majority the fibers remain intact. Posterior cruciate ligament: Intact. Medial collateral ligament: Increased signal and thickening of the proximal MCL. No full-thickness te ar. Posterior lateral corner structures: No tear. Medial menisci: Complex tear in the posterior horn. Small caliber posterior horn with abnormal signal throughout. Anterior horn is slightly subluxed from the joint. Lateral meniscus: Intact. Normal signal, size and shape. Extensor mechanism: Distal quadriceps tendon and patellar tendons are intact. Fluid and soft tissue: Moderate suprapatellar joint effusion. Small cyst posterior to the medial femo ral condyle are probably small ganglion cyst associated with the medial head of the gastrocnemius. No Good's cyst. Osseous and articular structures: Patellofemoral compartment: Lateral subluxation of the patella. Chronic lateral subluxation with loss of cartilage. Complete tear is chronic involving the medial patellar retinaculum. Medial compartment: Mild narrowing of the medial compartment. Moderate diffuse chondromalacia. No mar row edema is identified. Portions of the bone are poorly visualized secondary to artifact from hardwa re. Lateral compartment: Mild narrowing of the lateral compartment with diffuse mild loss of cartilage. N o marrow edema. Surgical hardware is identified in the proximal tibia causing some artifact. There is an additional s crew in the medial femoral condyle. IMPRESSION: 1. Chronic lateral subluxation of the patella with the torn medial patellar retinaculum as before. 2. Tricompartment moderate osteoarthritis with loss of cartilage and joint space. 3. Complex tear posterior horn medial meniscus. 4. Increased signal and thickening proximal MCL appears chronic. There is no full-thickness tear. 5. Mucoid degeneration ACL.
== END 2023-05-25 07:08 | disposition home or self-care (01) ==
LOC: RAD 07:08
PROVIDERS: PCP Nurse Practitioner Family; Visit Provider Student in an Organized Health Care Education/Training Program
DX: M17.12 Unilateral primary osteoarthritis, left knee (principal); M22.12 Recurrent subluxation of patella, left knee; S83.232A Complex tear of medial meniscus, current injury, left knee, initial encounter; X58.XXXA Exposure to other specified factors, initial encounter; M23.8X2 Other internal derangements of left knee
CPT/HCPCS: 73721

== ENCOUNTER 2023-06-09 07:33 | Outpatient (CLI) | payer MEDICAID, SELFPAY ==
--- NOTE | 2023-06-09 07:56 | MM_ITS ---
WS: [id number] Bilateral screening 3D tomosynthesis digital mammogram, 06/09/2023 Clinical Data: SCREENING Comparison: 08/22/2021, 04/25/2020, 11/22/2018. Findings: The breast parenchymal pattern shows fibroglandular tissue. No spiculated masses or clustered calcifi cations are seen. There are no secondary signs of carcinoma. There are benign ductal calcifications i n both breasts, more on the left than the right. There are lymph nodes in both axilla. Impression: 1. Negative bilateral mammogram unchanged. 2. Recommend annual screening mammograms. MM/[place] [id number] BIRADS: 2-Benign FOLLOW UP: 1 Year Follow-up The CAD dead mail checker was used.
== END 2023-06-09 07:34 | disposition home or self-care (01) ==
LOC: RAD 07:34
PROVIDERS: PCP Nurse Practitioner Family; Visit Provider Family Medicine
DX: Z12.31 Encounter for screening mammogram for malignant neoplasm of breast (principal)
CPT/HCPCS: 77063; 77067

== ENCOUNTER → 2023-06-15 07:10 | Outpatient (BNVA) | payer MEDICAID, SELFPAY | PROVIDERS: PCP Nurse Practitioner Family; Visit Provider Student in an Organized Health Care Education/Training Program | DX: M17.12 Unilateral primary osteoarthritis, left knee (principal); Z09 Encounter for follow-up examination after completed treatment for conditions other than malignant neoplasm | CPT/HCPCS: 99214 ==

== ENCOUNTER 2023-07-01 07:46 | Outpatient (CLI) | payer MEDICAID, SELFPAY ==
--- NOTE | 2023-07-01 08:00 | CT_ITS ---
WS: [id number] CT LEFT knee, noncontrast HISTORY: M17.12 - Unilateral primary osteoarthritis, left knee TECHNIQUE: Protocol for REN total knee replacement has been obtained. This includes axial imaging th rough the LEFT hip, LEFT knee and LEFT ankle. DLP: 973.70 mGy.cm COMPARISON: 06/11/2020 Pelvis: Degenerative air in the SI joints. No destructive bone lesions. LEFT knee: Moderate osteoarthritis. Hypertrophic bone formation with joint space narrowing. Small sup rapatellar joint effusion. Moderate lateral subluxation of the patella with relation to the femur. Pa tellar subluxation has been previously described. LEFT ankle: Negative. IMPRESSION: CT imaging provided for REN robotic total knee replacement.
== END 2023-07-01 07:47 | disposition home or self-care (01) ==
LOC: RAD 07:46
PROVIDERS: PCP Nurse Practitioner Family; Visit Provider Student in an Organized Health Care Education/Training Program
DX: M17.12 Unilateral primary osteoarthritis, left knee (principal)
CPT/HCPCS: 73700

== ENCOUNTER 2023-07-05 11:07 | Outpatient (CLI) | payer MEDICAID, SELFPAY ==
[2023-07-05 12:14] LABS: Basophils # 0.1 10^3/uL (0.0-0.1); Basophils % 0.5 %; Eosinophils # 0.1 10^3/uL (0.0-0.8); Eosinophils % 0.8 %; Hematocrit 41.1 % (36-47); Lymphocytes # 4.1 10^3/uL (0.8-4.8); Mean Corpuscular HGB Conc 32.8 g/dL (30-55); Mean Corpuscular Hemoglobin 31.3 pg (27-33); Mean Corpuscular Volume 95.4 fl (85-98); Monocytes # 0.7 10^3/uL (0.2-0.9); Monocytes % 5.1 %; Neutrophils # 8.29 10^3/uL (1.8-7.7); Neutrophils % 62.3 %; Nucleated Red Blood Cells % 0 %; Platelet Count 290 10^3/cmm (157-399); Red Blood Count 4.31 10^6/uL (3.85-5.65); Red Cell Distribution Width 13.2 % (12.1-15.1)
[2023-07-05 12:31] LABS: Alanine Aminotransferase 39 U/L (0-33); Albumin Level 4.1 g/dL (3.5-5.2); Alkaline Phosphatase 124 U/L (35-105); Aspartate Amino Transferase 30 U/L (0-32); Blood Urea Nitrogen 21 mg/dL (6-20); Calcium 9.1 mg/dL (8.5-10.5); Carbon Dioxide 27 mmol/L (22-29); Chloride 105 mmol/L (98-107); Globulin 2.9 g/dL (1.3-4.6); Glomerular Filtration Rate 65.8 mL/min (90-130); Glucose 113 mg/dL (65-115); Osmolality Calculated 304 mOsm/kg (285-295); Sodium 145 mmol/L (136-145); Total Bilirubin 0.2 mg/dL (0.15-1.2)
[2023-07-05 12:31] LABS: Add Urine Microscopic? YES; Bilirubin Urine 1+ (Negative); Blood Urine 2+ (Negative); Glucose Urine UA Norm (Normal); Ketones Urine 1+ (Negative); Leukocyte Esterase Urine 2+ (Negative); Nitrate Urine Negative (Negative); Protein Urine Trace (Negative); Urine Appearance Hazy (CLEAR); Urine Color Yellow (Yellow); Urobilinogen Urine Norm (Negative); pH Urine 5 (5-7)
[2023-07-05 12:32] LABS: Bacteria Urine 2+ /hpf; RBC Urine 0-4 /hpf (0-2); WBC Urine 25-40 /hpf (0-5)
[2023-07-05 12:37] LABS: Add Urine Culture? No; Squamous Epithelial Cell Urine 25-40 /hpf (0-5)
[2023-07-05 12:43] LABS: Anion Gap 16.7 (5-19); Potassium 3.7 mmol/L (3.5-5.1)
== END 2023-07-05 11:08 | disposition home or self-care (01) ==
PROVIDERS: PCP Nurse Practitioner Family; Visit Provider Student in an Organized Health Care Education/Training Program
DX: Z01.818 Encounter for other preprocedural examination (principal)
CPT/HCPCS: 36415; 80053; 81001; 85025

== ENCOUNTER 2023-07-19 09:51 | Outpatient (CLI) | payer MEDICAID, SELFPAY ==
[2023-07-19 11:27] LABS: Protein Urine Trace (Negative); Urine Appearance Cloudy (CLEAR); Urine Color Yellow (Yellow); pH Urine 5 (5-7)
[2023-07-19 11:28] LABS: Bilirubin Urine 1+ (Negative); Blood Urine 3+ (Negative); Glucose Urine UA Norm (Normal); Ketones Urine 1+ (Negative); Leukocyte Esterase Urine 2+ (Negative); Nitrate Urine Negative (Negative); Urobilinogen Urine Norm (Negative)
[2023-07-19 11:30] LABS: Add Urine Culture? No; Bacteria Urine 1+ /hpf; Squamous Epithelial Cell Urine 40-55 /hpf (0-5); WBC Urine 15-25 /hpf (0-5)
[2023-07-23 19:33] LABS: Cotinine, Urine 19 ng/mL; Nicotine, Urine 106 ng/mL
== END 2023-07-19 09:52 | disposition home or self-care (01) ==
LOC: LAB 09:52
PROVIDERS: Family Medicine; PCP Nurse Practitioner Family; Visit Provider Student in an Organized Health Care Education/Training Program
DX: Z01.818 Encounter for other preprocedural examination (principal); F17.200 Nicotine dependence, unspecified, uncomplicated
CPT/HCPCS: 80323; 81001; 87086

== ENCOUNTER 2023-07-26 15:01 | Inpatient (IN) | payer MEDICAID, SELFPAY ==
[2023-07-26] VITALS (22 sets, daily range): BP systolic 105–152; BP diastolic 70–87; PULSE 65–100; RESP 10–25; TEMP 26.6–37.2; O2SAT 1–96; BMI 39.8
--- NOTE | 2023-07-26 11:56 | W.PM.OPSFHP ---
Same Day Surgery H&P Indication for Procedure/HPI DATE OF PROCEDURE: July 26, 2023 CHIEF COMPLAINT/INDICATIONFOR SURGICAL PROCEDURE: Left knee degenerative joint disease as well as painful orthopedic hardware PREOP DIAGNOSIS: Left knee degenerative joint disease, painful orthopedic hardware PLANNED PROCEDURE: Operation Date: 07/26/23 12:40 Proposed Procedures p Waldemar Robot Total Knee Arthroplasty(Left) - Eliceo Jensen DO s Hardware Removal Knee(Left) - Eliceo Jensen DO Medications/Allergies* Home Medications Medication Instructions Recorded Confirmed Type hydrocodone 10 mg-acetaminophen 1 tab PO Q6H PRN Pain 09/29/21 07/23/23 History 325 mg tablet methocarbamol 500 mg tablet 500 mg PO BID 02/17/22 07/23/23 History atorvastatin 40 mg tablet 80 mg PO QPM 11/09/22 07/23/23 History omeprazole magnesium 10 mg oral 40 mg PO DAILY 07/12/23 07/23/23 History suspension,delayed release (Prilosec) topiramate 25 mg tablet 25 mg PO .qhs 07/12/23 07/23/23 History azelastine 137 mcg-fluticasone 50 1 spray intranasal BID PRN 07/23/23 07/23/23 History mcg/spray nasal spray congsetion carbamazepine 200 mg tablet 200 mg PO BID 07/23/23 07/23/23 History Allergies/Adverse Reactions Allergy/AdvReac Type Severity Reaction Status Date / Time Sulfa (Sulfonamide Allergy Severe Unconscious Verified 07/23/23 09:55 Antibiotics) Penicillins Allergy Unknown Unknown Verified 07/23/23 09:55 Pertinent History/Comorbid Conditions* Medical History (Updated 06/19/23 @ 21:52 by Eliceo Jensen DO) Torn rotator cuff PTSD (post-traumatic stress disorder) Generalized anxiety disorder Anxiety Ectopic delivery delivered Surgical History (Updated 03/03/21 @ 09:08 by Gopi Fields MD) H/O knee surgery H/O foot surgery Family History (Updated 03/03/21 @ 08:46 by Nuzhat Luna LPN) Congestive heart failure (CHF) Grandmother Cancer Grandmother Denies family history of Diabetes CAD (coronary artery disease) Clotting disorder Dementia Hyperlipidemia Psychiatric illness Chronic kidney disease (CKD) Suicide Anesthesia complication Bleeding disorder Family history of premature coronary artery disease Lung disease Hypertension Stroke Social History Smoking and tobacco/nicotine status: current every day tobacco/nicotine user (0.5 ppd) cigarettes Packs smoked per day: 0.5 Years cigarettes smoked: 34 [ Other cigarette details: started at age 17] Quit status (tobacco/nicotine): has tried quititng Second hand smoke exposure: No Alcohol intake: never Substance/Drug Use: never Current occupational status: unemployed Current gender identity: Female Pertinent Exam Findings alert, oriented x 3, operative site marked and procedure specific exam findings Refer to previous office note on 06/15/2023 for detailed orthopedic examination: left Knee exam -joint effusion present -ROM active 0-120 degrees -Severe medial and lateral joint line tenderness -Negative Randy's -Negative valgus, negative varus stress -Positive Odette's with no palpable click but significant pain noted 5 degree varus deformity appreciated correctable on examination -Patient can wiggle toes and has a pedal pulse of 2+.Crepitus on knee range of motion Lateral riding patella, with tenderness to palpation over the retropatellar space Incisions of all healed no signs of infection Recommendations Surgery/Procedure today Other Plans: Plan to proceed to the OR today for left knee removal of orthopedic hardware and left total knee arthroplasty Waldemar robotic assisted. Patient is cleared to preoperative clearance process. She has no urinary symptoms today she has had 2 consecutive UAs was treated initially with ciprofloxacin to her preoperative team recheck of her UA cultures are growing back normal urogenital han and no further intervention required per preoperative team at this point time she stabilized and optimized for surgical intervention today. I also had her have a recheck of her nicotine levels and at this point in time she has passed as below a smoker level she is in a home of secondary smoke at this point in time. Overall she is as optimized as possible for this procedure and optimized for lowering her comorbidity medical risk. She understands the ins and outs procedure the risk benefits complication alternatives of surgery. Understanding risk of surgery she elects to proceed all questions answered at this time. We did review her medical record she has received Ancef in the past and as this will be the best option for infection surgical prophylaxis we will proceed with this she did have a penicillin allergy but she states she has taken Keflex in the past as well. Patient understands agrees current plan. All questions answered. Proceed with left total knee arthroplasty Waldemar robotic assisted as well as left knee removal orthopedic hardware. Coding Level of Care Code Acute Code for [employer] Sara
--- NOTE | 2023-07-26 12:23 | ANES.PREANE2 ---
Pre-Anesthetic Assessment Height/Weight: Height 1.63 m Weight 105.233 kg Temp Pulse Resp BP Pulse Ox O2 Del Method 79.9 F L 65 18 139/81 95 Room Air 07/26/23 11:46 07/26/23 11:46 07/26/23 11:46 07/26/23 11:46 07/26/23 11:46 07/26/23 11:46 Preop Diagnosis: Left knee degenerative joint disease, painful orthopedic hardware Operation Date: 07/26/23 12:40 Proposed Procedures p Waldemar Robot Total Knee Arthroplasty(Left) - Eliceo Jensen DO s Hardware Removal Knee(Left) - Eliceo Jensen, Familial anesthetic complications: none Was Beta Jeevan taken within 24 hours: Yes Was Clonidine taken within 24 hours: N/A Last intake: Intake Last Liquid Date 07/25/23 Last Liquid Time 23:00 Last Solid Date 07/25/23 Last Solid Time 23:00 Social Tobacco and No alcohol Exam alert, oriented x 3, clear to auscultation bilaterally and regular rate & rhythm Airway Mallampati: Class III Pulmonary Chronic Obstructive Pulmonary Disease CV/HEM Coronary Artery Disease and Hypertension GI Gastroesophageal Reflux Disease Metabolic Morbid Obesity Anesthetic Plan ASA status: 3 Anesthesia: Regional (specify below) Risk of > 500 ml blood loss (7ml/kg in children): Yes, adequate IV access and fluids planned Medications/Allergies Home Medications Medication Instructions Recorded Confirmed Last Taken Type hydrocodone 10 mg-acetaminophen 1 tab PO Q6H PRN Pain 09/29/21 07/23/23 07/23/23 History 325 mg tablet methocarbamol 500 mg tablet 500 mg PO BID 02/17/22 07/23/23 07/23/23 History nitroglycerin 0.4 mg sublingual 0.4 mg sublingual Q5M PRN chest 04/20/22 07/23/23 Unknown Rx tablet pain #10 tabs umeclidinium 62.5 mcg/actuation 1 inh inhalation DAILY #30 ea 04/30/22 07/23/23 07/23/23 Rx blister powder for inhalation (Incruse Ellipta) albuterol sulfate 2.5 mg/3 mL 2.5 mg (3 mL) inhalation QID PRN 11/09/22 07/23/23 07/21/23 Rx (0.083 %) solution for nebulization shortness of breath or wheezing #180 mL atorvastatin 40 mg tablet 80 mg PO QPM 11/09/22 07/23/23 07/22/23 History ipratropium bromide 0.02 % 2.5 ml inhalation Q6H PRN 11/09/22 07/23/23 Unknown Rx solution for inhalation shortness of breath or wheezing #150 mL budesonide-formoterol HFA 160 2 puff inhalation BID #10.2 grams 01/01/23 07/23/23 07/23/23 Rx mcg-4.5 mcg/actuation aerosol inhaler (Symbicort) amlodipine 10 mg tablet (Norvasc) 10 mg PO DAILY #90 tabs 02/17/23 07/26/23 07/26/23 08:00 Rx hydrochlorothiazide 25 mg tablet 25 mg PO DAILY #30 tabs 03/30/23 07/23/23 07/23/23 Rx albuterol sulfate 90 mcg/actuation 2 puff inhalation Q6H PRN COPD 04/20/23 07/23/23 Unknown Rx aerosol inhaler #8.5 grams omeprazole magnesium 10 mg oral 40 mg PO DAILY 07/12/23 07/23/23 07/22/23 History suspension,delayed release (Prilosec) topiramate 25 mg tablet 25 mg PO .qhs 07/12/23 07/23/23 07/22/23 History azelastine 137 mcg-fluticasone 50 1 spray intranasal BID PRN 07/23/23 07/23/23 Unknown History mcg/spray nasal spray congsetion carbamazepine 200 mg tablet 200 mg PO BID 07/23/23 07/23/23 07/23/23 History metoprolol tartrate 50 mg tablet 50 mg PO BID #180 tabs 07/23/23 07/26/23 07/26/23 08:00 Rx lisinopril 40 mg tablet 40 mg PO DAILY #90 tabs 07/26/23 Unknown Rx Allergies Allergy/AdvReac Type Severity Reaction Status Date / Time Sulfa (Sulfonamide Allergy Severe Unconscious Verified 07/23/23 09:55 Antibiotics) Penicillins Allergy Unknown Unknown Verified 07/23/23 09:55 [facility] Anesthesia Medical History Torn rotator cuff PTSD (post-traumatic stress disorder) Generalized anxiety disorder Anxiety Ectopic delivery delivered Surgical History H/O knee surgery H/O foot surgery Family History Grandmother Cancer Congestive heart failure (CHF) Denies family history of Diabetes CAD (coronary artery disease) Clotting disorder Dementia Hyperlipidemia Psychiatric illness Chronic kidney disease (CKD) Suicide Anesthesia complication Bleeding disorder Family history of premature coronary artery disease Lung disease Hypertension Stroke Social History Smoking and tobacco/nicotine status: current every day tobacco/nicotine user (0.5 ppd) cigarettes Packs smoked per day: 0.5 Years cigarettes smoked: 34 [ Other cigarette details: started at age 17] Quit status (tobacco/nicotine): has tried quititng Second hand smoke exposure: No Alcohol intake: never Substance/Drug Use: never Current occupational status: unemployed Current gender identity: Female Data Anesthesia Cardiac Studies: Echocardiogram 06/03/22 Sestamibi Stress Test (Cardiology) 04/10/22
--- NOTE | 2023-07-26 12:23 | ANES.PROC ---
Anesthesia Procedures Procedure/Date: 07/26/23 Nerve Block ^: Nerve Block 1: Main Anesthesia: spinal anesthesia block Time Out Performed: Yes Consent: requested by attending/covering physician, from patient, from other, risks and benefits reviewed and patient agrees to proceed Nerve block location: adductor canal (L) Anesthesia monitors applied: pulse oximetry, EKG, BP cuff and oxygen Nerve block position: supine Anesthetic Used: ropivicaine 0.5% (30 ml) and with decadron (4 mg) Ultrasound used to: recognize landmarks and visualize and ID femerol nerve Nerve Stimulator Used?: No Interscalene/Femoral BLK: 4 stimuplex 21 g needle used for position and inplane approach, visualize local anesthetic spread and no vascular puncture identified Injection: neg aspiration of heme and paresthesia +/- Patient Tolerated Procedure: well Complications: none
[2023-07-26] MEDS: ketorolac 30 mg/mL INJ IVP (12:27)
[2023-07-26] MEDS: scopolamine 1.5 Patch 1 PATCH TRANSDERMA (12:28)
[2023-07-26] MEDS: lactated ringers 500 ML IV (12:31)
[2023-07-26] MEDS: sodium chloride 0.9% 1,000 ML 30 ML IV (12:42)
[2023-07-26] MEDS: ceFAZolin 2,000 MG in sodium chloride 0.9% (plus) 50 ML 100 MG IV ×2 (12:45→20:45)
[2023-07-26 12:54] LABS: Basophils # 0.1 10^3/uL (0.0-0.1); Basophils % 0.4 %; Eosinophils # 0.1 10^3/uL (0.0-0.8); Eosinophils % 0.7 %; Hematocrit 40.5 % (36-47); Lymphocytes # 4.1 10^3/uL (0.8-4.8); Lymphocytes % 31.8 %; Mean Corpuscular HGB Conc 32.6 g/dL (30-55); Mean Corpuscular Hemoglobin 31.4 pg (27-33); Mean Corpuscular Volume 96.2 fl (85-98); Mean Platelet Volume 9.8 fL (7.4-10.4); Monocytes # 0.7 10^3/uL (0.2-0.9); Monocytes % 5.3 %; Neutrophils # 7.93 10^3/uL (1.8-7.7); Neutrophils % 61.4 %; Nucleated Red Blood Cells % 0 %; Platelet Count 274 10^3/cmm (157-399); Red Blood Count 4.21 10^6/uL (3.85-5.65); Red Cell Distribution Width 13.4 % (12.1-15.1)
[2023-07-26] MEDS: acetaminophen 1,000 MG/100 ML PIGGYBACK 400 MG IV ×2 (13:08→21:31)
[2023-07-26 13:18] LABS: Anion Gap 13.9 (5-19); Blood Urea Nitrogen 16 mg/dL (6-20); Calcium 8.8 mg/dL (8.5-10.5); Carbon Dioxide 27 mmol/L (22-29); Chloride 110 mmol/L (98-107); Creatinine Clr Calc Pharmacy 97.2831; Glomerular Filtration Rate 75.3 mL/min (90-130); Glucose 95 mg/dL (65-115); Osmolality Calculated 305 mOsm/kg (285-295); Potassium 3.9 mmol/L (3.5-5.1); Sodium 147 mmol/L (136-145)
[2023-07-26] MEDS: tranexamic acid 1,000 mg/10mL SDV 1000 MG IV (13:25)
[2023-07-26] MEDS: vancomycin 1,000 MG SDV 1000 MG XX (14:05)
[2023-07-26] MEDS: EPINEPHrine 1 mg/mL INJ XX (14:05)
[2023-07-26] MEDS: tranexamic acid 1,000 mg/10mL SDV 1000 MG XX (14:05)
[2023-07-26] MEDS: ketorolac 30 mg/mL INJ XX (14:05)
[2023-07-26] MEDS: ROPivacaine 0.2% Premix 100 mL 200 MG INTRA-ARTI (14:05)
--- NOTE | 2023-07-26 15:05 | W.PM.BPON ---
Date of Procedure: 07/26/2023 Surgeon: Eliceo Jensen DO Promotions Assistant Sales Marketing(s): Mack Jensen PA-C Procedure(s) performed: Left total knee arthroplasty?Waldemar robotic assisted Left proximal tibia (knee) removal of deep orthopedic hardware (2 screws and 2 washers) Findings of the procedure(s): Patient was found to have healed tibial tubercle transfer with 2 orthopedic screws and washers removed in preparation for tibial implant patient was found to have tricompartmental arthritic changes noted throughout the left knee consistent with left knee degenerative joint disease. Underwent procedure as planned without issues or complications. X-rays were performed intraoperatively to make sure no cement extravasation posteriorly which was confirmed with mini C arm. Patient patient taken to PACU in stable condition. Estimated blood loss: 25 mL Specimen(s) removed: Tibia femur and patellar bone cuts removed as well as 2 screws and 2 washers removed Post-operative diagnosis: Left knee (proximal tibia) painful orthopedic hardware, left knee degenerative joint disease
--- NOTE | 2023-07-26 15:08 | P.OP_ITS ---
Operative Report Date of procedure: July 26, 2023 Surgeon: Eliceo Jensen DO Speech Pathology Supervisor: Mack Jensen PA-C: PA was necessary for assistance in this case with leg positioning retraction and protection of neurovascular structures as well as assistance in implantation wound closure and dressing application. Procedure: Preoperative diagnosis: Left knee degenerative joint disease Left proximal tibia painful orthopedic hardware Post-op diagnosis: Same Procedure done: Left total knee arthroplasty, cemented?robotic assisted Waldemar Left knee (proximal tibia) removal of orthopedic hardware (2 screws and 2 washers) Implants: Rama triathlon size 3 femur CR cemented?left [place] triathlon size? 2 tibia universal baseplate cemented Rama triathlon symmetric patella size 27 mm [place] triathlon polyethylene 10mm Surgeon: Eliceo Jensen DO Estimated blood?loss: 25 mL Tourniquet 73minutes IV fluids: 1000 mL Urine output: 200 mL Complications: None Condition: stable Disposition: floor Brief History: Patient is a 53-year-old female with with chronic?left knee degenerative joint disease.? Patient has been worked up in the outpatient setting in the orthopedic office at this point time through shared decision making given? [id number] arthritis as well as failed conservative treatment, and pt would?like to proceed with a?left total knee arthroplasty. Patient also with history of tibial tubercle transfer that is subsequently healed but unfortunately given the prominence of the hardware this will need to be removed for total joint replacement she understands and agrees to having this removed as well in conjunction with a total knee replacement surgery. Through shared decision making elected to proceed with surgical intervention for?left total knee arthroplasty and left knee removal of deep orthopedic hardware.? We talked about continued conservative treatment and surgical intervention as far as the risk benefits complications alternatives surgical and nonsurgical treatment options.? At this point time understanding patient risks with surgery he agrees to proceed with surgical intervention.? Once again? risk with surgery include but are not?limited to make it better make it worse blood clot, heart attack, stroke, on the table, infection, injury to nerves or vessels, persistent pain, arthrofibrosis, implant failure.? Understanding these risks patient agrees to proceed with surgical intervention consent was obtained in the office.? All questions answered. Procedure: Patient was seen and evaluated in the preoperative holding area.? Consent was reviewed and signed with patient with plan for?left total knee arthroplasty.? All questions answered.? Correct extremity marked.? Patient seen and evaluated by the anesthesia department and once cleared for surgery was taken back to the operative suite.? Patient was placed into a supine position on the OR table.? All bony prominences were well-padded.? Patient was appropriately secured to the bed.? Patient underwent anesthesia per the anesthesia department.? Patient received spinal anesthesia and? Love catheter was placed.? A nonsterile tourniquet was applied to the?left thigh.? At this point in time a final timeout performed.? Patient received appropriate preoperative antibiotics and TXA. Next the?left?lower extremity was then prepped and draped in standard orthopedic fashion. Esmarch tourniquet was used exsanguinate the?left?lower extremity.? Tourniquet was insufflated to 250 mmHg. A standard anterior incision was made over midline of the knee.? Sharp scalpel excision through skin and subcutaneous tissue full-thickness skin flaps were made.? Fascia was elevated off of the extensor retinaculum was stable with medial parapatellar arthrotomy was then made.? The performed standard sequential releases..? Immediately on entry into the joint patient was found to have severe eburnated bone and tricompartmental arthritic changes noted.? With significant osteophyte formation.? Next the the patella was then stuffed and the knee was then flexed.?? Prior to proceeding with the total joint replacement I started off with removal of the deep orthopedic hardware. X-rays were brought up as well as mini C arm was utilized to triangulate the 4 oh cannulated screws the appropriate hexhead was identified I utilized Bovie electrocautery to make a small split incision once triangulated at the area of the tibial tubercle at its insertion site split the fascia and periosteum directly down to the cannulated screws once these were identified they were curetted out so the hexhead fit appropriately and then subsequently these were both backed out atraumatically and the washers were removed this was done for the proximal to as this was preoperatively planned that are distal aspect of her implant would just reach the second 1 I did not want to create an excessively long incision just to remove the other 2 screws as these of all well-healed did not backing out not causing her any pain. The 2 screws and 2 washers removed atraumatically confirmed with fluoroscopic imaging and were subsequently proceeded with the total joint replacement surgery. Dolores was placed superiorly around the anterior aspect of the femur this was freed of synovium and I subsequently then placed by 2 femur pins to establish my femur arrays for the Waldemar robot.? These were then placed bicortically and? femur array was then appropriately secured with appropriate visualization.? Next attention was turned towards the tibial rays.? These were then drilled sequentially bicortically in parallel fashion and intraincisional.? I then placed my guide as well as my tibial array on in place.? This was appropriately secured and had excellent visualization with the Waldemar robot.? Next the tibial checkpoint as well as femur checkpoint were then placed.? At this point time I then subsequently established my head center as well as my medial?lateral malleoli as well as my checkpoints.? Next utilizing standard Syrmo technology I then mapped out the appropriate points and confirmation points around the femur as well as the tibia in standard fashion.? Once this was then done I then removed all osteophytes in preparation for dynamic testing.? All osteophytes were removed as well as I removed the ACL and the PCL was excised due to its significant tearing and degeneration noted.? At this point time the knee was brought into full extension and we performed our standard evaluation of our gap balancing stressing his?ligaments and extension as well as flexion appropriate adjustments were made to have appropriate gap balancing in both flexion and extension.? This plan for final counts.? We get a preoperative plan evaluating our implants which was a size 3 femur and a size 2 tibia.? Next we brought in the Waldemar robot and sequentially made our femur cuts.? All excess bony cuts were then removed.? Finally we made our tibial cut.? Once this was done a standard PCL retractor was then placed into this position I excised the medial and?lateral meniscus.? The tibial cut was then subsequently removed all excess bony debris was removed.? I then utilized a?lamina backhoe operator and remove the posterior osteophytes.? At this point time sized the tibia and confirmed this was a size 2.? I utilized our blunt probe to establish rotation of tibial implant.? Once this was done I then placed my tibia size 2 trial in appropriate position and then subsequently placed tibial pins to hold this into place placed a size 10 mm poly as well as a size 3 femur which was appropriately impacted in place knee was then subsequently brought into extension. Trials were then assessed,? this was stable with varus valgus stress in extension as well as had symmetrical translation when brought into flexion demonstrating symmetrical gaps. I had excellent balance gaps in flexion and extension with varus and valgus stresses.? At this point I was satisfied with these implants these were then verified and opened on the back table size 2 tibia, size 3 femur,? size 10mm polythickness.? We did confirm appropriate gap balancing and stresses as well as alignment utilizingGustavo Medeiros and were satisfied with this plan.? ?At this point time with my trials in place I then towel clip the patella everted this made appropriate measurements subsequently utilizing freehand technique performed by patellar resurfacing this was confirmed to be appropriate resection and subsequently sized to be a 27 mm symmetric.? My drill peg guides were then clamped and appropriate position and appropriate position in the webb lla for appropriate tracking and parallel with the joint.? Pegs were drilled trial implant was placed and the knee was then subsequently ranged and found to have excellent patellar tracking.? Femur pegs were then drilled.? Satisfied with our tibial placement rotation I then utilized the keel punch and prepped the tibia.? At this point time all of our trial implants were removed.? All checkpoints as well as guidepins and arrays were removed and appropriate counts made.? The wound bed? was thoroughly irrigated and dried and prepped for cementation.? Cement was mixed on the back table.? Once cement was ready this was then covered onto the tibia and the tibial baseplate was then impacted and all excess cement was removed.? Next the polyethylene was then impacted into place on the tibial baseplate.? Next cement was placed onto the femur as well as under the femur implants and impacted in to place and all excess cement was extruded and removed.? Knee was taken into full extension? to clear all excess cement was removed.? Warm saline was placed over the joint.? I then towel clip patella and dried for cementation. cemented the patella into place.? This was all clamped and the cement was allowed to cure.? Thorough irrigation performed with pulse?lavage.? I then placed my periarticular injection while the cement was curing.? Once cured the knee was taken through range of motion and had e xcellent stability and gaps were balanced in flexion and extension.? Tourniquet was then deflated. hemostasis satisfactory with electrocautery.? Thoroughly irrigation once again performed of the knee joint. Given patient's comorbidities vancomycin powder was placed in the wound bed. Next I then subsequently closed the capsule with Ethibond suture as well as a running strata fix suture.? Knee was then taken through range of motion 30 times.? Next the skin was then closed in?layered fashion of running stratifix sutures of deep and subcutenous tissue and skin.? ?closed in flexion and Prineo glue was then placed over the incision this allowed to cure.? Incision was covered with sofy incisional VAC dressing, with ABDs soft roll and Fabian wrap.? Patient was then awakened from anesthesia and taken to PACU in stable condition. Disposition: Patient taken to PACU in stable condition will be admitted to the floor for pain control PT/OT weight-bear as tolerated?left?lower extremity dressing changes as needed, DVT prophylaxis. Pain control. Patient will receive appropriate postoperative antibiotics. patient will be seen today by the internal medicine team for medical management.? Patient will follow up with the office in 2 weeks.? Patient understands agrees with current plan.? All questions answered.
--- NOTE | 2023-07-26 15:12 | XRR_ITS ---
PROCEDURE INFORMATION: Exam: XR Left Knee Exam date and time: 07/26/2023 3:44 PM Age: 53 years old Clinical indication: Device placement; Joint replacement hardware; Prior surgery; Surgery date: Post-operative (0-2 days); Surgery type: Post L tka; Additional info: Post L tka, do in pacu TECHNIQUE: Imaging protocol: Radiologic exam of the left knee. Views: 1 or 2 views. COMPARISON: CT knee LT [facility] [id number] 07/01/2023 8:00 AM FINDINGS: Bones/joints: The patient has had a left total knee arthroplasty with no adverse findings. Two proximal tibial diaphyseal screws are again seen. Soft tissues: Postoperative soft tissue changes are seen. XR/XR knee LT 1-2V [id number] IMPRESSION: Normal appearing postoperative left total knee arthroplasty.
--- NOTE | 2023-07-26 15:46 | P.PCN_ITS ---
PACU note Narrative: pt is a 53 y/o female that just underwent a Left knee Total knee arthroplasty and orthopedic hardware removal. pt transferred to PACU in stable condition. Dressing is dry. pt is awake and alert. pt can wiggle toes and plantarflex and dorsiflex foot. Distal pulses are palpable toes are warm and well- perfused. Cap refill is normal and under 2 seconds. Sensation to foot is intact. Pain is controlled. Exam: awake Disposition: admitted
[2023-07-26] MEDS: fentaNYL 50 mcg/mL INJ 2mL IVP (15:57)
--- NOTE | 2023-07-26 16:15 | ANE.PACU2 ---
Inpatient post-anesthesia follow up: Airway intact: Yes Vital signs: Temperature 98.1 F Pulse Rate 68 Respiratory Rate 22 Blood Pressure 129/79 Pulse Oximetry 96 Oxygen Delivery Me thod Room Air Oxygen Flow Rate 1 Fraction of Inspir ed Oxygen Hydration adequate: Yes Nausea and vomiting: No Pain level: 1 Mental status: Baseline
[2023-07-26] MEDS: lactated ringers 1,000 ML 100 ML IV (16:52)
[2023-07-26] MEDS: chlorhexidine gluconate 0.12% Btl 473 mL 30 ML MUCOUS MEM ×2 (16:52→21:30)
[2023-07-26] MEDS: oxyCODONE 5 mg IR Tab/Cap PO ×2 (16:54→20:43)
[2023-07-26] MEDS: iron polysaccharide complex 150 mg Capsule PO (17:59)
[2023-07-26] MEDS: calcium carb-vit d 600mg/400unit 1 Tablet 1 EACH PO (17:59)
[2023-07-26] MEDS: docusate sodium 100 mg Capsule PO (18:00)
[2023-07-26] MEDS: mupirocin oint 22 gm 1 APPLIC NASAL (18:00)
[2023-07-26] MEDS: sennosides-docusate Tablet 2 TAB PO (18:00)
--- NOTE | 2023-07-26 18:02 | P.CONIM_ITS ---
Providers/Reason For Consult 2 Consulting Physician/Specialty*: hospitalist Reason for Consult*: post op Attending Physician: Eliceo Jensen DO Primary Care Provider: Denice Gaitan History of Present Illness History of Present Illness Valery Rust is a 53 year old female who carries history of COPD, hospital service has been requested to manage postoperatively, patient is hemodynamically stable on room air. Patient has history of nicotine addiction, hypertension, emphysematous COPD, She takes inhalers for her COPD, uncontrolled hypertension, takes 4 different medications Review of Systems 2 Const: Denies: fever(s) Eyes: Denies: change in vision ENMT: Denies: throat pain Card: Denies: chest pain Resp: Denies: dyspnea GI: Denies: abdominal pain Medications/Allergies Home Medications Medication Instructions Recorded Confirmed Last Taken Type hydrocodone 10 mg-acetaminophen 1 tab PO Q6H PRN Pain 09/29/21 07/23/23 07/23/23 History 325 mg tablet methocarbamol 500 mg tablet 500 mg PO BID 02/17/22 07/23/23 07/23/23 History nitroglycerin 0.4 mg sublingual 0.4 mg sublingual Q5M PRN chest 04/20/22 07/23/23 Unknown Rx tablet pain #10 tabs umeclidinium 62.5 mcg/actuation 1 inh inhalation DAILY #30 ea 04/30/22 07/23/23 07/23/23 Rx blister powder for inhalation (Incruse Ellipta) albuterol sulfate 2.5 mg/3 mL 2.5 mg (3 mL) inhalation QID PRN 11/09/22 07/23/23 07/21/23 Rx (0.083 %) solution for nebulization shortness of breath or wheezing #180 mL atorvastatin 40 mg tablet 80 mg PO QPM 11/09/22 07/23/23 07/22/23 History ipratropium bromide 0.02 % 2.5 ml inhalation Q6H PRN 11/09/22 07/23/23 Unknown Rx solution for inhalation shortness of breath or wheezing #150 mL budesonide-formoterol HFA 160 2 puff inhalation BID #10.2 grams 01/01/23 07/23/23 07/23/23 Rx mcg-4.5 mcg/actuation aerosol inhaler (Symbicort) amlodipine 10 mg tablet (Norvasc) 10 mg PO DAILY #90 tabs 02/17/23 07/26/23 07/26/23 08:00 Rx hydrochlorothiazide 25 mg tablet 25 mg PO DAILY #30 tabs 03/30/23 07/23/23 07/23/23 Rx albuterol sulfate 90 mcg/actuation 2 puff inhalation Q6H PRN COPD 04/20/23 07/23/23 Unknown Rx aerosol inhaler #8.5 grams omeprazole magnesium 10 mg oral 40 mg PO DAILY 07/12/23 07/23/23 07/22/23 History suspension,delayed release (Prilosec) topiramate 25 mg tablet 25 mg PO .qhs 07/12/23 07/23/23 07/22/23 History azelastine 137 mcg-fluticasone 50 1 spray intranasal BID PRN 07/23/23 07/23/23 Unknown History mcg/spray nasal spray congsetion carbamazepine 200 mg tablet 200 mg PO BID 07/23/23 07/23/23 07/23/23 History metoprolol tartrate 50 mg tablet 50 mg PO BID #180 tabs 07/23/23 07/26/23 07/26/23 08:00 Rx lisinopril 40 mg tablet 40 mg PO DAILY #90 tabs 07/26/23 Unknown Rx Allergies Allergy/AdvReac Type Severity Reaction Status Date / Time Sulfa (Sulfonamide Allergy Severe Unconscious Verified 07/23/23 09:55 Antibiotics) Penicillins Allergy Unknown Unknown Verified 07/23/23 09:55 Current Medications Generic Name Dose Route Start Last Admin Trade Name Freq PRN Reason Stop Dose Admin Calcium Carbonate 1 each 07/26/23 18:00 07/26/23 17:59 Calcium Carb-Vit D 600mg/400unit 1 Tablet PO 1 each BID ABEL Administration Chlorhexidine Gluconate 30 ml 07/26/23 17:00 07/26/23 16:52 Chlorhexidine Gluconate 0.12% Btl 473 Ml MUCOUS MEM 30 ml QID ABEL Administration Docusate Sodium 100 mg 07/26/23 18:00 07/26/23 18:00 Docusate Sodium 100 Mg Capsule PO 100 mg BID ABEL Administration Lactated Ringer's 1,000 mls @ 100 mls/hr 07/26/23 16:30 07/26/23 16:52 Lactated Ringers IV 100 mls/hr .Q10H ABEL Administration Mupirocin 1 applic 07/26/23 18:00 07/26/23 18:00 Mupirocin Oint 22 Gm NASAL 07/31/23 17:59 1 applic BID ABEL Administration Protocol Oxycodone HCl 5 mg 07/26/23 16:30 07/26/23 16:54 Oxycodone 5 Mg Ir Tab/Cap PO 5 mg Q4H PRN Administration MODERATE PAIN Polysaccharide Iron Complex 150 mg 07/26/23 18:00 07/26/23 17:59 Iron Polysaccharide Complex 150 Mg Capsule PO 150 mg BIDWM ABEL Administration Senna/Docusate Sodium 2 tab 07/26/23 18:00 07/26/23 18:00 Sennosides-Docusate Tablet PO 2 tab BID ABEL Administration PFSH Acute 2 PFSH: Medical History Torn rotator cuff PTSD (post-traumatic stress disorder) Generalized anxiety disorder Anxiety Ectopic delivery delivered Surgical History H/O knee surgery H/O foot surgery Family History Grandmother Cancer Congestive heart failure (CHF) Denies family history of Diabetes CAD (coronary artery disease) Clotting disorder Dementia Hyperlipidemia Psychiatric illness Chronic kidney disease (CKD) Suicide Anesthesia complication Bleeding disorder Family history of premature coronary artery disease Lung disease Hypertension Stroke Social History Smoking and tobacco/nicotine status: current every day tobacco/nicotine user (0.5 ppd) cigarettes Packs smoked per day: 0.5 Years cigarettes smoked: 34 [ Other cigarette details: started at age 17] Quit status (tobacco/nicotine): has tried quititng Second hand smoke exposure: No Alcohol intake: never Substance/Drug Use: never Current occupational status: unemployed Current gender identity: Female Vitals/I&O/Wt Last Vital Signs Temp 98.0 F 07/26/23 16:30 Pulse 88 07/26/23 17:40 Resp 16 07/26/23 17:40 BP 126/74 07/26/23 16:30 Pulse Ox 91 07/26/23 17:40 O2 Del Method Room Air 07/26/23 17:40 O2 Flow Rate 8 07/26/23 15:40 07/26/23 07/26/23 07/26/23 06:59 14:59 22:59 Intake Total 150 / 150 50 / 200 Output Total 225 / 225 Balance 150 / 150 -175 / -25 Weight last 48 hrs Weight 105.233 kg Weight 105.233 kg Physical Exam 2 Urinary Catheter Management: Love: Cath Placed During This Visit: yes Urinary Catheter Date of Insertion: 07/26/23 Urinary Catheter Time of Insertion: 13:05 Data 07/27/23 06:50 07/27/23 06:50 A&P Assessment and plan (1) Postoperative state: (2) Generalized anxiety disorder: (3) Benign essential HTN: (4) Exertional chest pain: (5) COPD (chronic obstructive pulmonary disease): (6) Nicotine addiction: Plan Postop day 0 Left total knee arthroplasty History of COPD Currently on room air Will request DuoNeb respiratory assessment Add budesonide Incentive spirometer at the bedside Uncontrolled hypertension history: I will resume her antiplatelet regimen will give her beta-brittany first dose now Signs of dehydration with hypernatremia: Add D5 half-normal saline at lower maintenance rate Full code Consult Attestations 2 Medical Necessity Statement: ortho Diagnoses Postoperative state Z98.890 Generalized anxiety disorder F41.1 Benign essential HTN I10 Exertional chest pain R07.9 COPD (chronic obstructive pulmonary disease) J44.9 Nicotine addiction F17.200
[2023-07-26] MEDS: metoprolol tartrate 50 mg Tablet PO (18:33)
[2023-07-26] MEDS: dextrose 5%-sod chloride 0.45% 1,000 ML 30 ML IV (18:37)
[2023-07-26] MEDS: HYDROmorphone 1 mg/mL INJ 1 mL 0.5 MG IVP (18:40)
[2023-07-26] MEDS: ipratropium-albuterol 3 mL Neb INHALATION (19:49)
[2023-07-26] MEDS: budesonide 0.5 mg/2 mL Neb INHALATION (19:49)
[2023-07-26] MEDS: tranexamic acid 1,000 MG/100 ML PREMIX 600 MG IV (21:58)
[2023-07-27] VITALS (13 sets, daily range): BP systolic 121–132; BP diastolic 64–80; PULSE 67–85; RESP 16–22; TEMP 36.5–37.4; O2SAT 1–96
[2023-07-27] MEDS: ketorolac 30 mg/mL INJ 15 MG IVP ×2 (01:41→20:09)
[2023-07-27] MEDS: acetaminophen 1,000 MG/100 ML PIGGYBACK 400 MG IV (05:22)
[2023-07-27] MEDS: oxyCODONE 5 mg IR Tab/Cap PO ×3 (05:26→18:11)
[2023-07-27] MEDS: ceFAZolin 2,000 MG in sodium chloride 0.9% (plus) 50 ML 100 MG IV ×2 (05:55→13:36)
[2023-07-27 07:22] LABS: Anion Gap 13.1 (5-19); Blood Urea Nitrogen 17 mg/dL (6-20); Calcium 8.5 mg/dL (8.5-10.5); Carbon Dioxide 27 mmol/L (22-29); Chloride 108 mmol/L (98-107); Creatinine Clr Calc Pharmacy 82.0323; Glomerular Filtration Rate 58.2 mL/min (90-130); Glucose 117 mg/dL (65-115); Osmolality Calculated 301 mOsm/kg (285-295); Potassium 4.1 mmol/L (3.5-5.1); Sodium 144 mmol/L (136-145)
[2023-07-27 07:38] LABS: Basophils % 0.2 %; Eosinophils % 0.1 %; Hematocrit 33.5 % (36-47); Lymphocytes % 23.9 %; Mean Corpuscular HGB Conc 32.5 g/dL (30-55); Mean Corpuscular Hemoglobin 32.1 pg (27-33); Mean Corpuscular Volume 98.5 fl (85-98); Mean Platelet Volume 9.6 fL (7.4-10.4); Monocytes # 1.4 10^3/uL (0.2-0.9); Monocytes % 8.4 %; Neutrophils # 11.07 10^3/uL (1.8-7.7); Neutrophils % 66.9 %; Nucleated Red Blood Cells % 0 %; Platelet Count 219 10^3/cmm (157-399); Red Cell Distribution Width 13.6 % (12.1-15.1); White Blood Count 16.58 10^3/uL (3.29-11.43)
[2023-07-27] MEDS: TRAMadol 50 mg Tablet PO (08:29)
[2023-07-27] MEDS: multivitamin therapeutic Tablet 1 TAB PO (08:30)
[2023-07-27] MEDS: sennosides-docusate Tablet 2 TAB PO ×2 (08:30→17:02)
[2023-07-27] MEDS: metoprolol tartrate 50 mg Tablet PO ×2 (08:30→17:02)
[2023-07-27] MEDS: docusate sodium 100 mg Capsule PO ×2 (08:30→17:01)
[2023-07-27] MEDS: apixaban 5 mg Tablet 2.5 MG PO ×2 (08:30→17:02)
[2023-07-27] MEDS: iron polysaccharide complex 150 mg Capsule PO ×2 (08:30→17:02)
[2023-07-27] MEDS: calcium carb-vit d 600mg/400unit 1 Tablet 1 EACH PO ×2 (08:30→17:01)
[2023-07-27] MEDS: hydroCHLOROthiazide 25 mg Tablet PO (08:30)
[2023-07-27] MEDS: mupirocin oint 22 gm 1 APPLIC NASAL ×2 (08:31→17:00)
[2023-07-27] MEDS: amlodipine 10 mg Tablet PO (08:31)
[2023-07-27] MEDS: chlorhexidine gluconate 0.12% Btl 473 mL 30 ML MUCOUS MEM ×4 (08:31→20:12)
[2023-07-27] MEDS: ipratropium-albuterol 3 mL Neb INHALATION (09:09)
--- NOTE | 2023-07-27 09:09 | PC.CHAP ---
Pastoral Care Encounter/Spiritual Assessment Type of Contact [] Declined landcare officer visit [] Patient/Family/Request visit [] Outpatient visit [] Follow-up visit [] Physician referral [] Code/Alert [x] Routine visit [] Staff referral [] Actively dying [] Patient sleeping [] Family support [] [] Out of room [] Palliative care [] [] Receiving care in room [] Pre-surgical visit [] Trauma [] Long length of stay [] ICU visit [] Other: Relational/Emotional Strength [x] Patient feels connected with others/family/visitors/staff [] Distress [] Loneliness/isolation [] Abandonment Spirituality of Patient [x] Person of Minnie [] Attends Alevism of their Minnie [x] Believes in Prayer [] Reads Bible or Scientology materials [] There are Spiritual issues to be addressed [employer] Labor Interventions [x] Prayer [x] Active listening [] Non-anxious presence [x] Spiritual/emotional support [] Crisis/trauma care [] Spiritual counseling [] Bereavement support [] Provided bereavement packet [] Provided Bible/devotional materials [] Provided toy/stuffed animal, coloring book to patient or family member [] Provided Communion [] Anointing/[place] [] Salvation [x] Completed spiritual assessment [] Other: Impact on Illness or Injury [] Angry [] Fearful [] Anxious [] Often cries [] Exhaustion [] Unable to work [] Unable to attend methodist [] Unable to walk/stand [] Unable to read [] Unable to drive [] Unable to eat/drink [] Unable to sleep [] Unable to be with family [] Patient intubated [] Other: Summary Time spent with patient 5 min
[2023-07-27] MEDS: budesonide 0.5 mg/2 mL Neb INHALATION ×2 (09:10→19:25)
[2023-07-27] MEDS: HYDROmorphone 1 mg/mL INJ 1 mL IVP ×2 (10:33→16:58)
--- NOTE | 2023-07-27 11:42 | P.PN_ITS ---
Subjective 2 Subjective: seen this morning she says she is in a lot of pain however but was able to walk in her room with a walker Vitals/I&O/Wt Last Vital Signs Temp 98.1 F 07/27/23 11:40 Pulse 68 07/27/23 11:40 Resp 17 07/27/23 11:40 BP 129/79 07/27/23 11:40 Pulse Ox 96 07/27/23 11:40 O2 Del Method Room Air 07/27/23 11:40 O2 Flow Rate 1 07/26/23 19:51 07/26/23 07/27/23 07/27/23 22:59 06:59 14:59 Intake Total 660 / 810 150 / 960 120 / 120 Output Total 225 / 225 400 / 625 Balance 435 / 585 -250 / 335 120 / 120 Weight last 48 hrs Weight 115.354 kg Weight 105.233 kg Weight 105.233 kg Physical Exam 2 Narrative: obese female sitting up in chair, family member at bedside says her knee hurts lungs cta b/l abdomen soft, nontener left knee covered with bandage. Urinary Catheter Management: Love: Cath Placed During This Visit: yes, but has since been removed by the nurse Reason for Continuing Indwelling Catheter: Acute Urinary Retention or Obstruction Urinary Catheter Date of Insertion: 07/26/23 Urinary Catheter Time of Insertion: 13:05 Date Urinary Catheter Removed: 07/27/23 Time Urinary Catheter Discontinued: 06:22 Data 07/27/23 06:50 07/27/23 06:50 A&P Assessment and plan (1) Postoperative state: (2) Generalized anxiety disorder: (3) Benign essential HTN: (4) Exertional chest pain: (5) COPD (chronic obstructive pulmonary disease): (6) Nicotine addiction: Plan Postop day 0 Left total knee arthroplasty History of COPD Currently on room air Will request DuoNeb respiratory assessment continue budesonide Incentive spirometer at the bedside Uncontrolled hypertension history: I will resume her antiplatelet regimen will give her beta-brittany first dose now Signs of dehydration with hypernatremia: Add D5 half-normal saline at lower maintenance rate Full code Attestations 2 Medical Necessity Statement*: defer to primary Diagnoses Postoperative state Z98.890 Generalized anxiety disorder F41.1 Benign essential HTN I10 Exertional chest pain R07.9 COPD (chronic obstructive pulmonary disease) J44.9 Nicotine addiction F17.200
[2023-07-27] MEDS: methocarbamol 500 mg Tablet PO (12:42)
[2023-07-27] MEDS: acetaminophen 1,000 MG/100 ML PIGGYBACK 200 MG IV (12:43)
--- NOTE | 2023-07-27 16:42 | P.PN_ITS ---
<Statement entered by Eliceo Jensen DO - 07/28/23 09:58> Patient seen and examined with PA-C agree with PAs assessment and plan. This point in time patient's had to require some adjustments on her pain medication is not comfortable and does not feel safe discharging today. At this point in time we will continue to have her work with therapy work on her pain regiment and keep her an additional night. Goal will be for hopefully discharge tomorrow once pain is better under control. Patient understands agrees with current plan. Questions answered. Eliceo Jensen DO Orthopedic surgery Subjective 2 Subjective: Patient is a 53-year-old female that is 1 day postop left total knee arthroplasty. Patient has gotten up with therapy today and is doing well. No acute events overnight. She is still having quite a bit of pain and having trouble controlling pain with pain meds here. Vitals/I&O/Wt Last Vital Signs Temp 98.1 F 07/27/23 15:45 Pulse 70 07/27/23 15:45 Resp 17 07/27/23 15:45 BP 121/72 07/27/23 15:45 Pulse Ox 92 07/27/23 15:45 O2 Del Method Room Air 07/27/23 15:45 O2 Flow Rate 1 07/26/23 19:51 07/27/23 07/27/23 07/27/23 06:59 14:59 22:59 Intake Total 150 / 960 390 / 390 Output Total 400 / 625 Balance -250 / 335 390 / 390 Weight last 48 hrs Weight 254 lb 5 oz Weight 232 lb Weight 232 lb Physical Exam 2 Const: COMMON NORMALS: no acute distress and alert Resp: COMMON NORMALS: normal respiratory effort and No retractions Cardio: COMMON NORMALS: Peripheral pulses 2+ throughout PERIPHERAL PULSES: Peripheral pulses 2+ throughout Extremity: NARRATIVE EXTREMITY EXAM: Left knee?normal postop swelling. Patient able to perform straight leg raise and dorsiflex plantarflex foot. Pedal pulses 2+. Compartment soft compressible. Surgical dressing still dry and intact. Neuro: SENSORIUM/ORIENTATION: Yes alert Skin: GENERAL SKIN EXAM: dry skin Urinary Catheter Management: Love: Cath Placed During This Visit: yes, but has since been removed by the nurse Reason for Continuing Indwelling Catheter: Acute Urinary Retention or Obstruction Urinary Catheter Date of Insertion: 07/26/23 Urinary Catheter Time of Insertion: 13:05 Date Urinary Catheter Removed: 07/27/23 Time Urinary Catheter Discontinued: 06:22 Data 07/27/23 06:50 07/27/23 06:50 A&P Assessment and plan (1) Status post total left knee replacement using cement: Plan Plan: -Imaging and Labs reviewed -Hospitalist on board for medical management. -DVT prophylaxis- elquis 2.5 mg BID -Weight-bear as tolerated on left leg leg -Pain control -PT Pt's pain is not well controlled today. We will keep pt tonight and reevaluate tomorrow. Attestations 2 Medical Necessity Statement*: Ongoing care for left total knee arthroplasty Coding Level of Care Code Acute Code for Chg Fwd Diagnoses Status post total left knee replacement using cement Z96.652
[2023-07-27] MEDS: hyDROXYzine 25 mg Capsule PO (20:08)
[2023-07-28] VITALS (16 sets, daily range): BP systolic 119–150; BP diastolic 75–85; PULSE 77–98; RESP 14–22; TEMP 36.6–37.2; O2SAT 94–98
[2023-07-28] MEDS: HYDROmorphone 1 mg/mL INJ 1 mL IVP ×3 (01:41→20:20)
[2023-07-28] MEDS: LORazepam 2 mg/mL INJ 10 mL MDV IVP (01:50)
[2023-07-28 01:56] LABS: ABG PCO2 54.5 mmHg (35-45); ABG PH Result 7.22 (7.35-7.45); Alveolar-Arterial Oxygen Gradi 1.8 mmHg (5-10); Arterial Blood Gas Hematocrit 37.6 % (37-47); Base Excess ABG -5.8 mmol/L (-2.0-2.0); Blood Gas Allen Test Pos; Blood Gas Sample Site Radial, left; Blood Gas Sample Type Arterial; Carboxyhemoglobin 1.4 %THgb (0.4-20.1); HCO3 ABG 22.3 mmol/L (22-26); HGB O2 Sat 96.3 % (95-100); Ionized Calcium Level - ABG 1.4 mmol/L (1.1-1.4); Methemoglobin 0.8 % (0.4-1.5); Oxygen Device NC; Oxygen Saturation ABG 98.5; PO2 FiO2 Ratio Arterial Blood 0; Potassium Level - ABG 3.2 mmol/L (3.5-5.0); Total Hemoglobin 12.3 g/dL (12-16)
[2023-07-28 01:58] LABS: Glucose Point of Care 132 mg/dL (70-110)
[2023-07-28] MEDS: LORazepam 2 mg/mL INJ 10 mL MDV 1 MG IVP ×2 (02:05→02:22)
--- NOTE | 2023-07-28 02:12 | CTR_ITS ---
PROCEDURE INFORMATION: Exam: CT Head Without Contrast Exam date and time: 07/28/2023 2:37 AM Age: 53 years old Clinical indication: Other: Seizure; Additional info: Possible seizure, change in loc TECHNIQUE: Imaging protocol: Computed tomography of the head without contrast. Radiation optimization: All CT scans at this facility use at least one of these dose optimization techniques: automated exposure control; mA and/or kV adjustment per patient size (includes targeted exams where dose is matched to clinical indication); or iterative reconstruction. COMPARISON: CR XR skull min 4V* [id number] 09/11/2020 10:11 AM RADIATION DOSE METRICS: Total DLP (mGy-cm): 1686.38 FINDINGS: Brain: No acute finding. Cerebral ventricles: No ventriculomegaly. Pituitary gland and sella: Slight expansion of the sella turcica with fluid attenuation, pituitary gland appears flattened. Paranasal sinuses: Visualized sinuses are unremarkable. No fluid levels. Mastoid air cells: Visualized mastoid air cells are well aerated. Bones: Lytic appearance in the left sphenoid skull base with well-defined sclerotic borders, ofar-dksxore-ykyh-right, may represent encephalocele versus arachnoid granulations (series 9, image 5). Soft tissues: Unremarkable. Other findings: Mild intracranial atherosclerotic disease. CT/CT head wo con* [id number] IMPRESSION: 1. Suggestion of possible cystic expansion of the sella turcica with mass effect on the pituitary gland. Recommend MRI for definitive characterization. 2. Lytic appearance with well marginated sclerotic border of the left sphenoid skull base, likely represents arachnoid granulation versus cephalocele. Attention on follow-up recommended MRI. 3. No further acute intracranial findings.
[2023-07-28] MEDS: haloperidol inj 5 mg/mL INJ 1 mL 1 MG IVP (02:15)
--- NOTE | 2023-07-28 02:15 | XRR_ITS ---
PROCEDURE INFORMATION: Exam: XR Chest Exam date and time: 07/28/2023 2:41 AM Age: 53 years old Clinical indication: Shortness of breath; Additional info: SOB TECHNIQUE: Imaging protocol: Radiologic exam of the chest. Views: 1 view. COMPARISON: CT chest con [id number] 06/24/2022 3:07 PM FINDINGS: Lungs: Hypoventilatory changes bilaterally. Suggestion of retrocardiac and left lower lobe infiltrate, perhaps consolidative with slight appearance of air bronchograms. Pleural spaces: Mild blunting of the left costophrenic angle. Heart/Mediastinum: Unremarkable. No cardiomegaly. Bones/joints: Unremarkable. XR/XR chest 1V portable [id number] IMPRESSION: Suggestion of retrocardiac/left lower lobe infiltrate with associated small pleural effusion. Mild consolidative appearance given small bronchograms. May represent infection in the correct clinical setting.
--- NOTE | 2023-07-28 02:19 | ECG_ITS ---
[facility] Test Date: 2023-07-28 Pat Name: Valery Rust Department: Room: 251 Gender: Female Director Human Services: : 1970 Requested By: Gabe Forrester Order Number: [id number] Reji MD: Ladi Steele M.D. Measurements Intervals [place] Rate: 97 P: 29 NJ: 192 QRS: 28 QRSD: 102 T: -7 QT: 331 QTc: 421 Interpretive Statements SINUS RHYTHM INTERPRETATION BASED ON A DEFAULT AGE OF 40 YEARS No previous ECG available for comparison Electronically Signed On 07-28-2023 19:58:44 CDT by Ladi Steele M.D. [id number] f
--- NOTE | 2023-07-28 02:28 | P.PNCC_ITS ---
Critical Care Event Note The high probability of a clinically significant, sudden or life threatening deterioration of the patient's [] system(s) required my full and direct attention, intervention and personal management. The critical care time is as shown. This time is in addition to time spent performing any reported procedures but includes the following: [x] Data and vital sign review and interpretation [x] Patient assessment, examination and intervention [x] Documentation [x] Medication orders and management Critical Care Time Code activated: No Critical Care Time (min): 35 Additional information about critical care time: - Rapid response was called 1:49 AM ? Patient was having according to nursing staff after the seizure-like episodes, tonic-clonic seizures, generalized seizures, was given 2 mg of IV push Ativan ? During my examination at about 1:52 AM, patient was flailing bilateral upper and lower extremities, trying to get up, was not following commands, remained agitated/postictal, no facial droop that I could not discern, pupils equal round reactive to light, spontaneously moving upper and lower extremities, but would not follow commands, would withdraw from pain ? She was given another 1 mg IV push of Ativan and then monitored ? She continued to have episodes of agitation despite receiving Ativan would not follow commands, spontaneously trying to get up, no facial droop no slurring of her words, quite agitated requiring nursing staff to hold her down, it did not appear as if she was having a tonic-clonic episode, but trying to get up out of bed ? She was given 1 mg of Haldol IV push given her persistent agitation, getting up out of bed, requiring nursing staff to hold her down ? A few minutes after the Haldol she was much more calm, still not following commands, pupils equal round reactive to light, no facial droop, ? Systolic blood pressure 180s over 100, she was 99% on 5 L, respiratory rate 20, heart rate 120 ? EKG showed sinus tachycardia ? Panel blood work was ordered ? ABG pH 7.22 pCO2 54.5, pO2 116 She does have a history of COPD ? I have given her a gram of Keppra loading dose ? CT of the head was ordered ? Blood sugar was within normal limits ? Review of blood work magnesium 1.6, lactic 3.4, CPK 559, started on IV fluids ? Patient was seen coming back CT ? I cannot find it in her chart ever documented that patient has a history of se izures, but she is on Tegretol and is on carbamazepine, which she has not been receiving here in the hospital concerns for likely seizures, As she was reexamined after CT she is much more calm, she awakens to her name, she is able to track me, she is able to follow commands such as squeezing my fingers, no facial droop, pupils equal round reactive to light, spontaneously moving upper and lower extremities CT/CT head wo con* [id number] IMPRESSION: 1. Suggestion of possible cystic expansion of the sella turcica with mass effect on the pituitary gland. Recommend MRI for definitive characterization. 2. Lytic appearance with well marginated sclerotic border of the left sphenoid skull base, likely represents arachnoid granulation versus cephalocele. Attention on follow-up recommended MRI. 3. No further acute intracranial findings. -MRI of the brain ordered Coding Level of Care Code Acute Code for Chg Fwd
[2023-07-28 02:43] LABS: Basophils # 0.1 10^3/uL (0.0-0.1); Basophils % 0.3 %; Eosinophils # 0.1 10^3/uL (0.0-0.8); Eosinophils % 0.4 %; Hematocrit 34.9 % (36-47); Lymphocytes # 4.9 10^3/uL (0.8-4.8); Lymphocytes % 29.1 %; Mean Corpuscular HGB Conc 32.7 g/dL (30-55); Mean Corpuscular Hemoglobin 31.8 pg (27-33); Mean Corpuscular Volume 97.5 fl (85-98); Mean Platelet Volume 9.7 fL (7.4-10.4); Monocytes # 1.4 10^3/uL (0.2-0.9); Monocytes % 8.3 %; Neutrophils # 10.25 10^3/uL (1.8-7.7); Neutrophils % 61.4 %; Nucleated Red Blood Cells % 0 %; Platelet Count 229 10^3/cmm (157-399); Red Blood Count 3.58 10^6/uL (3.85-5.65); Red Cell Distribution Width 13.4 % (12.1-15.1); White Blood Count 16.71 10^3/uL (3.29-11.43)
[2023-07-28] MEDS: levETIRAcetam 1,000 MG/100 ML PREMIX 400 MG IV (02:53)
[2023-07-28 03:01] LABS: Troponin(5th) Baseline 12 ng/L (0-10)
[2023-07-28 03:03] LABS: Ammonia 50 umol/L (11-51)
[2023-07-28 03:04] LABS: Alanine Aminotransferase 19 U/L (0-33); Albumin Level 3.8 g/dL (3.5-5.2); Alkaline Phosphatase 112 U/L (35-105); Anion Gap 16.7 (5-19); Aspartate Amino Transferase 23 U/L (0-32); Blood Urea Nitrogen 15 mg/dL (6-20); C Reactive Protein 95.3 mg/L (0.0-4.9); Calcium 9.7 mg/dL (8.5-10.5); Carbon Dioxide 25 mmol/L (22-29); Chloride 102 mmol/L (98-107); Globulin 2.5 g/dL (1.3-4.6); Glomerular Filtration Rate 65.8 mL/min (90-130); Glucose 155 mg/dL (65-115); Magnesium 1.6 mg/dL (1.7-2.3); Osmolality Calculated 294 mOsm/kg (285-295); Phosphorus 4.3 mg/dL (2.5-4.5); Potassium 3.7 mmol/L (3.5-5.1); Sodium 140 mmol/L (136-145); Total Bilirubin 0.3 mg/dL (0.15-1.2); Total Protein 6.3 g/dL (6.6-8.7)
[2023-07-28 03:05] LABS: Lactic Sepsis W/Reflex 3.4 mmol/L (0.5-2.2)
[2023-07-28 03:08] LABS: Creatine Phosphokinase 559 U/L (26-192)
[2023-07-28 03:10] LABS: Procalcitonin 0.08 ng/mL (0-0.5)
[2023-07-28] MEDS: sodium chloride 0.9% 1,000 ML 75 ML IV ×2 (03:27→20:19)
[2023-07-28 04:07] LABS: Basophils % 0.2 %; Eosinophils % 0.2 %; Hematocrit 33.4 % (36-47); Lymphocytes # 2.4 10^3/uL (0.8-4.8); Lymphocytes % 14.1 %; Mean Corpuscular HGB Conc 32.6 g/dL (30-55); Mean Corpuscular Volume 97.9 fl (85-98); Mean Platelet Volume 9.4 fL (7.4-10.4); Monocytes # 1.6 10^3/uL (0.2-0.9); Monocytes % 9.5 %; Neutrophils % 75.6 %; Nucleated Red Blood Cells % 0 %; Platelet Count 204 10^3/cmm (157-399); Red Blood Count 3.41 10^6/uL (3.85-5.65); Red Cell Distribution Width 13.6 % (12.1-15.1); White Blood Count 16.93 10^3/uL (3.29-11.43)
--- NOTE | 2023-07-28 04:10 | ECG_ITS ---
[facility] Test Date: 2023-07-28 Pat Name: Valery Rust Department: Room: 251 Gender: Female Corrections Officer: : 1970 Requested By: Gabe Forrester Order Number: [id number] Reji MD: Ladi Steele M.D. Measurements Intervals [place] Rate: 84 P: 45 PA: 179 QRS: 15 QRSD: 109 T: 0 QT: 357 QTc: 424 Interpretive Statements SINUS RHYTHM Poor R wave progression Compared to ECG 07/28/2023 02:19:55 No significant changes Electronically Signed On 07-28-2023 20:08:14 CDT by Ladi Steele M.D. [id number]
[2023-07-28 04:26] LABS: Reflex Lactate Order REFLEX LACTIC ORDERD
[2023-07-28 04:28] LABS: Troponin 5 2HR 26.46 ng/L (0-10)
[2023-07-28 04:34] LABS: Troponin 5 2HR Delta 14.46 ABS# (0-10)
--- NOTE | 2023-07-28 04:43 | MR_ITS ---
WS: [id number] MRI HEAD WITHOUT CONTRAST TECHNIQUE: Sagittal T1, T2 axial, T2 axial FLAIR, axial and coronal T1 images, axial susceptibility w eighted imaging, axial diffusion weighted images, and coronal T2 images were obtained. CLINICAL INFORMATION: seziure COMPARISON: CT earlier today 07/28/2023 FINDINGS: Some images degraded by motion. Fast imaging protocol utilized. No evidence of restricted diffusion to suggest acute ischemia. Ventricular system and basilar cistern s are patent. Normal posterior fossa. Normal vascular flow voids at the skull base. No extra-axial fl uid collections. No evidence of mass or mass effect. Paranasal sinuses and mastoid air cells are well aerated. Normal posterior nasopharynx. Normal optic chiasm and pituitary infundibulum. No mass effect on the pituitary infundibulum. Paucity of pituitary tissue in the sella with partially empty sella. No evidence of sellar or suprasellar ma ss. No hemosiderin on the susceptibly weighted images. Temporal lobes and hippocampal formations are normal in appearance. No signal abnormalities in the me sial temporal lobes. Previously described sclerosis along the LEFT sphenoid wing at the skull base li maged benign pneumatization with arachnoid granulations. No evidence of encephalocele. MR/MR head wo con* [id number] IMPRESSION: Some imaging degraded by motion. Fast imaging protocol utilized 1. No evidence of restricted diffusion to suggest acute ischemia. 2. Mild patchy supratentorial white matter changes nonspecific in a patient th is age but can be seen with hypertension, diabetes, collagen vascular disease, and migraine headaches. No significant parenchymal volume loss. 3. Temporal lobes and hippocampal formations are normal in appearance. No evid ence of signal abnormality in the mesial temporal lobes. 4. No evidence of encephalocele. 5. Benign-appearing partially empty sella. Pituitary infundibulum appears midl ine. Normal optic chiasm. Paucity of pituitary tissue.
[2023-07-28 05:17] LABS: Lactic Acid level (Lactate) 0.9 mmol/L (0.5-2.2)
[2023-07-28 05:21] LABS: Amphetamines Screen Urine Negative (Negative); Barbiturates Screen Urine Negative (Negative); Benzodiazepines Screen Urine Positive (Negative); Cocaine Screen Urine Negative (Negative); Opiate Screen Urine Positive (Negative); PCP Screen Urine Negative (Negative); THC Screen Urine Negative (Negative)
--- NOTE | 2023-07-28 05:26 | PC.NURSE ---
this nurse was notified by a manager trade that the patient was having seizure like activity and staff responded to the room immediately. The manager trade had been in the room when the activity had started, stated she was getting the patient settled back to bed from using the bedside commode and was placing ice on the operative knee when the patient reached out as if to say something and then started shaking and became unresponsive. pt was a&oX4 prior to this event. when walking into the room the patient was contracted and convulsing, unresponsive to verbal or sternal rub, her jaw was clenched and the patient was purple and was not breathing, eyes rolled back. This nurse called a rapid response at 0149. This nurse turned the patient on her side and applied 5L NC as well as sternal rubbed the patient to induce breathing. Upon rapid response team arrival 2mg IVP Ativan was overrode in the pyxis by charge nurse, Monika and given 0150. The patient's vitals SPO2 98% 5L nc, Hr 85, Bp 186/79 and the patient was still unresponsive. Around 0153 the patient started being response to painful stimuli, but was unresponsive to verbal stimuli and unable to follow commands. She was moving her legs and moaning almost as if she was trying to sit up. During this time patient was suctioned to keep airway clear and gag reflux was absent. 1mg IVP Ativan was ordered and given per at 0200. The patient was suctioned again after the second dose of ativan was administered and gag reflex was present at that time. The patient vitals at 0207 SPO2 97% 5L, hr 124, bp 185/99. 0209 doctor ordered a CBC, Mag, Phos, CMP, and troponin and EKG series as well as a head CT and chest XR. The patient was still uncooperative and unable to follow commands with no verbal response. Doctor ordered 1mg ivp Haldol at 0215 and it was given at this time. Patient was taken to CT at 0227 stable with Hr in the 90's and pulse ox 94% on 5L NC. Vitals returning to the patients room were Hr 108, bp 135/69, SPO2 93% 2L nc, seizure precautions in place at this time.
[2023-07-28] MEDS: budesonide 0.5 mg/2 mL Neb INHALATION ×2 (07:39→19:59)
[2023-07-28] MEDS: ipratropium-albuterol 3 mL Neb INHALATION (07:39)
--- NOTE | 2023-07-28 07:42 | ECG_ITS ---
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 Measurements Intervals [place] Rate: 91 P: 48 [place]: 187 QRS: 19 QRSD: 98 T: 11 QT: 342 QTc: 422 Interpretive Statements SINUS RHYTHM NONSPECIFIC T-WAVE ABNORMALITY Compared to ECG 07/28/2023 04:10:02 T-wave abnormality now present Electronically Signed On 07-28-2023 20:08:26 CDT by Ladi Steele M.D. [id number]
[2023-07-28] MEDS: multivitamin therapeutic Tablet 1 TAB PO (08:28)
[2023-07-28] MEDS: hydroCHLOROthiazide 25 mg Tablet PO (08:28)
[2023-07-28] MEDS: sennosides-docusate Tablet 2 TAB PO ×2 (08:28→17:16)
[2023-07-28] MEDS: calcium carb-vit d 600mg/400unit 1 Tablet 1 EACH PO ×2 (08:28→17:17)
[2023-07-28] MEDS: iron polysaccharide complex 150 mg Capsule PO ×2 (08:28→17:16)
[2023-07-28] MEDS: carBAMazepine 200 mg Tablet PO ×2 (08:28→17:19)
[2023-07-28] MEDS: amlodipine 10 mg Tablet PO (08:28)
[2023-07-28] MEDS: apixaban 5 mg Tablet 2.5 MG PO ×2 (08:29→17:16)
[2023-07-28] MEDS: metoprolol tartrate 50 mg Tablet PO ×2 (08:29→17:16)
[2023-07-28] MEDS: docusate sodium 100 mg Capsule PO ×2 (08:29→17:16)
--- OUTSIDE RECORDS SUMMARY | 2023-07-28 08:45 | XMS_ITS | Patient Health Record ---
Author Name Unknown Organization [facility] Address [address] [place], [place] [id number] Care Team Providers Care Calculation Clerk Name Role Phone Dencie Stein Primary Care Provider Unav marcosable Alfred YANEZ, Sam Unavailable [phone] Sharon Millan Unavailable [phone] ALLERGIES Allergen (clinical drug ingredient) Drug/Non Drug Allergy documented on EMR Reaction Allergy Type Onset Date Status sulfa (uncoded) Unknown Allergy Acti ve RESULTS Component Value Reference Range Notes Urine tox screen / MS if ind icated Reviewed date:09/01/2022 01:10:01 PM Interpretation:Consistent Performing Lab: Notes/Report: Consistent REASON FOR REFERRAL No Information MEDICATIONS Medication SIG (Take, Route, Frequency, Duration) Notes Start Date End Date Status simvastatin 40 mg 1 tab orally once a day (at bedtime) Active ProAir HFA 90 mcg/inh 2 puffs inhaled every 6 hours Active topiramate 25 mg 1 tab(s) orally 2 times a day for 30 day(s) Active omeprazole 20 mg 1 cap orally once a day Active mirtazapine 15 mg 2 tabs orally once a day (at bedtime) Active metoprolol 25 mg 1 tab(s) orally 2 times a day for 30 day(s) Active methocarbamol 500 mg 1 tab orally Q8H prn spasm for 28 days Do not fill prior to 07/23/23. ICD-10: G89.29 (has 1 RF on current Rx) Active lisinopril 40 mg 1 tab orally once a day Active acetaminophen-hydrocodone 325 mg-10 mg 1 tab orally Q4H prn pain (max 4/day; hold within 4H of planned sleep) for 28 days Do not fill prior to 07/23/23. ICD-10: G89.29 06/08/2023 Active ipratropium 500 mcg/2.5 mL 2.5 mL by nebulizer 4 times a day for 30 day(s) 03/03/2022 Active acetaminophen-hydrocodone 325 mg-10 mg 1 tab orally Q4H prn pain (max 4/day; hold within 4H of planned sleep) for 28 days Do not fill prior to 06/25/23. ICD-10: G89.29 06/08/2023 Active hydroCHLOROthiazide 25 mg 1 tab orally o nce a day 02/24/2021 Active Ventolin HFA 90 mcg/inh 2 puff(s) inhale d every 6 hours 03/03/2022 Active diclofenac sodium 50 mg 1 tab(s) orally 3 times a day for 30 day(s) 03/03/2022 Active Tylenol PM Active carBAMazepine 200 mg 1 tab orally 2 times a day 09/18/2021 Active Tylenol Extra Strength 500 mg 1-2 tabs orally every 6 hours as needed Active SOCIAL HISTORY Tobacco Use: Social History Observation Description Date Details (start date - stop date) Current Smoker NA - NA Sex Assigned At : Social History Observation Description Sex Assigned At Unknown alcohol Question Answer Notes Did you have a drink containing alcohol in the p ast year? No Points 0 Interpretation Negative Tobacco use: Question Answer Notes : current smoker Are you interested in quitting? Thinking about q uitting How many cigarettes a day do you smoke? 11-20 How often do you smoke cigarettes? every day How soon after you wake up d o you smoke your first cigarette? 6-30 min When did you start smoking? 2001 PROBLEMS Problem Type ICD Code Onset Dates Problem Status W/U Status Risk SNOMED Code Notes Problem Sacroiliitis, not elsewhere classified (M46.1) Active confirmed Solitary sacroiliitis (156936269) Problem Spondylosis without myelopathy or radiculopathy, lumbar region (M47.816) Active confirmed Lumbosacral spondylosis without myelopathy (29930996) Problem technician terminal and repeater (current) use of opiate analgesic (Z79.891) Active confirmed High risk drug monitoring status (750160947) Problem Pain in left knee (M25.562) Active confirmed Arthralgia of t he lower leg (484802375) Problem Hypersomnia, unspecified (G47.10) Active confirmed Hypersomnia (06163800) Problem Other sleep disorders (G47.8) Active confirmed Sleep diso rder (50640794) Problem Other chronic pain (G89.29) Active confirmed Chronic pain (08508482) Problem Pain in right shoulder (M25.511) Active confirmed Shoulder joint pain (481719593) Problem Spondylolisthesis , lumbar region (M43.16) Active confirmed Acquired spondylolisthesis (420169279) Problem Intervertebral disc disorders with radiculopathy, lumbar region (M51.16) Active confirmed Radiculopathy d ue to lumbar intervertebral disc disorder (252563054437083) Problem Other residential (current) drug therapy (Z79.899) Active confirmed Long-term current use of drug therapy (295787885) Problem Myalgia, other site (M79.18) Active confirmed Muscle pain (88983833) Problem Low back pain, unspecified (M54.50) Active confirmed Low back pain (031277976) Problem Vertebrogenic low back pain (M54.51) Active confirmed Pain in lumbar spine (103517325) VITAL SIGNS Temperature 97.8 degrees Fahrenheit 06/08/2023 Blood pressure diastolic 97 mm Hg 06/08/2023 Oximetry 96 % 06/08/2023 Height 64 in 06/08/2023 Blood pressure systolic 158 mm Hg 06/08/2023 Weight 234.2 lbs 06/08/2023 BMI 40.20 kg/m2 06/08/2023 Encounters Encounter Location Date Provider Diagnosis [facility] [employer] [address] [place], [place] [id number] 09/01/2022 Sharon Perdomos Vertebrogenic low ba ck pain M54.51 ; Other chronic pain G89.29 ; Myalgia, other site M79.18 and technician terminal and repeater (current) use of opiate analgesic Z79.891 [facility] [employer] [address] [place], [place] [id number] 12/01/2022 Sharon Buenrostro Vertebrogenic low ba ck pain M54.51 ; Other chronic pain G89.29 and Myalgia, other site M79.18 [facility] [address] [place], [place] [id number] 03/02/2023 Sharon Buenrostro Vertebrogenic low ba ck pain M54.51 ; Other chronic pain G89.29 and Myalgia, other site M79.18 [facility] [address] [place], [place] [id number] 03/08/2023 Sam Alfred [facility] [address] [place], [place] [id number] 04/27/2023 Sharon Buenrostro Vertebrogenic low ba ck pain M54.51 ; Other chronic pain G89.29 ; Myalgia, other site M79.18 and Other sleep disorders G47.8 [facility] [address] [place], [place] [id number] 06/08/2023 Sharon Buenrostro Vertebrogenic low ba ck pain M54.51 ; Other chronic pain G89.29 ; Myalgia, other site M79.18 and Other sleep disorders G47.8 ASSESSMENTS Encounter Date Diagnosis Assessment Notes Treatment Notes Treatment Clinical Notes 09/01/2022 Other chronic pain (ICD-10 - G89.29) Patient reports she has been able to stay at her 's bedside during his current hospitalization and assist with his care by having pain medication to take as needed. Plan to consider oral opioid medication management 09/01/2022 Vertebrogenic low back pain (ICD-10 - M54.51) Chronic axial lumbosacral spine pain 12/01/2022 Vertebrogenic low back pain (ICD-10 - M54.51) Chronic axial lumbosacral spine pain 03/02/2023 Vertebrogenic low back pain (ICD-10 - M54.51) Chronic axial lumbosacral spine pain. 04/27/2023 Vertebrogenic low back pain (ICD-10 - M54.51) Chronic axial lumbosacral spine pain. 06/08/2023 Vertebrogenic low back pain (ICD-10 - M54.51) Chronic axial lumbosacral spine pain. 06/08/2023 Other chronic pain (ICD-10 - G89.29) Patient reports that taking her pain medication allows her to be more active every day. Plan to continue oral opioid medication management. 06/08/2023 Myalgia, other site (ICD-10 - M79.18) Patient reports benefit with use of methocarbamol for her spasms. Plan to continue. 04/27/2023 Other chronic pain (ICD-10 - G89.29) Patient reports that taking her pain medication allows her to care for her family. Plan to continue oral opioid medication management. 04/27/2023 Myalgia, other site (ICD-10 - M79.18) Patient reports benefit with use of methocarbamol for her spasms. Plan to continue. 03/02/2023 Other chronic pain (ICD-10 - G89.29) Patient reports that taking her pain medication allows her to be more active. Plan to continue oral opioid medication management. 03/02/2023 Myalgia, other site (ICD-10 - M79.18) Patient reports some benefit with use of methocarbamol for her spasms. Plan to continue with quantity titration. 12/01/2022 Other chronic pain (ICD-10 - G89.29) Patient reports that taking her pain medication allows her to stand for longer periods of time. Plan to continue oral opioid medication management 12/01/2022 Myalgia, other site (ICD-10 - M79.18) Patient reports benefit with use of methocarbamol for her spasms. Plan to continue 09/01/2022 Myalgia, other site (ICD-10 - M79.18) Patient reports occasional use of methocarbamol but with minimal benefit. Instructed patient to trial a dose of 1 1/2 tablets. Consider titration to 750 mg pending outcome 09/01/2022 technician terminal and repeater (current) use of opiate analgesic (ICD-10 - Z79.891) Plan urine toxicology screen today to monitor compliance regarding use of prescribed hydrocodone and for the presence of any unprescribed or illicit drugs 04/27/2023 Other sleep disorders (ICD-10 - G47.8) Patient has history of a sleep disorder with hypersomnia, witnessed breathing cessation during sleep, morning headaches and restless legs. Patient has declined prior offer for a sleep study. Plan to continue to restrict opioid use in relation to sleep for safety concerns. 06/08/2023 Other sleep disorders (ICD-10 - G47.8) Patient has history of a sleep disorder with hypersomnia, witnessed breathing cessation during sleep, morning headaches and restless legs. Patient has declined prior offer for a sleep study. Plan to continue to restrict opioid use in relation to sleep for safety concerns. 09/01/2022 Other 12/01/2022 Other Patient reports an appointment with [facility] 12/04/22 for her left knee and an appointment with Dr. Ernandez in 12/2022 for her left foot 03/02/2023 Other Patient reports appointments with Dr. Ernandez on 03/21/[address] Jensen on 04/13/23 regarding possible right foot surgery. Verbal methocarbamol prescription, as written above, given to [facility], who states that they deactivated the new prescription that was sent, because the refill from [facility] did not transfer. 04/27/2023 Other Patient reports she had an appointment with Dr. Ernandez on 04/21/23 and [address] Jensen on 05/06/23 (no foot surgery, only insoles). 06/08/2023 Other Patient reports evaluation by Dr. Jensen for her left knee. MRI completed with office follow up later this month to discuss surgery. PLAN OF TREATMENT Next Appt Details Provider Name:Sam Sheppard son, 08/10/2023 08:30:00 AM, [address] [place] [address], [phone], Insurance Providers Payer Name Payer Address Payer Phone Subscriber Number Group Number Insured Name Patient Relationship to Insured Coverage Start Date Coverage End Date [place] [employer] [address] [facility] [place] [address] [id number] Valery Rust Self - patient is the insured MEDICAL (GENERAL) HISTORY Medical History History ICD Code Chronic pain Low back pain Lumbar spondylosis, disc disease, and sp ondylolisthesis Sacroiliitis Migraine Mild central canal stenosis in cervical spine noted on the sem manager imaging at C3-4, C5-6, and C6-7 with slight indentation on cervical cord as per 04/09/21 lumbar imaging study report Knee pain, left Shoulder pain, right Osteoarthritis Foot problems, history of podiatry and o rthopedic referrals for evaluation Anxiety disorder and depression Hypertension Bipolar disorder Schizophrenia Asthma COPD, inhaler use (x 2 diffe rent inhalers) with history of no benefit as per prior patient report Lung lesion as per prior patient report Tobacco use with history of COPD Sleep disorder with hypersom dion, witnessed breating cessation during sleep, morning headaches and restless legs Obesity, morbid Surgical History Surgery Date(Month/Year) Tubal ligation Knee arthroscopy, left Foot surgery, right, performed at [facility] by Dr. Jp Ernandez, 09/2018 Knee surgery, left performed at [facility] by Horace Kelley, 10/17/20 Angiogram, performed at [facility] by Dr. Homer alcaraz, 06/24/22
--- NOTE | 2023-07-28 08:49 | PC.CHAP ---
Pastoral Care Encounter/Spiritual Assessment Type of Contact [] Declined nailing machine operator automatic visit [] Patient/Family/Request visit [] Outpatient visit [] Follow-up visit [] Physician referral [] Code/Alert [x] Routine visit [] Staff referral [] Actively dying [] Patient sleeping [x] Family support [] [] Out of room [] Palliative care [] [] Receiving care in room [] Pre-surgical visit [] Trauma [] Long length of stay [] ICU visit [] Other: Relational/Emotional Strength [] Patient feels connected with others/family/visitors/staff [x] Distress [] Loneliness/isolation [] Abandonment Spirituality of Patient [x] Person of Minnie [] Attends Amish of their Minnie [x] Believes in Prayer [] Reads Bible or Anglican materials [] There are Spiritual issues to be addressed Sales Service Promoter Interventions [x] Prayer [] Active listening [x] Non-anxious presence [x] Spiritual/emotional support [] Crisis/trauma care [] Spiritual counseling [] Bereavement support [] Provided bereavement packet [] Provided Bible/devotional materials [] Provided toy/stuffed animal, coloring book to patient or family member [] Provided Communion [] Anointing/[place] [] Salvation [x] Completed spiritual assessment [] Other: Impact on Illness or Injury [] Angry [] Fearful [] Anxious [] Often cries [] Exhaustion [] Unable to work [] Unable to attend restorationism [] Unable to walk/stand [] Unable to read [] Unable to drive [] Unable to eat/drink [] Unable to sleep [] Unable to be with family [] Patient intubated [] Other: Summary Time spent with patient 5 min
[2023-07-28 10:12] LABS: Troponin 5 6HR 24.14 ng/L (0-10)
[2023-07-28 10:19] LABS: Troponin 5 6HR Delta 12.14 ng/L (0-12)
[2023-07-28] MEDS: methocarbamol 500 mg Tablet PO (11:37)
[2023-07-28] MEDS: oxyCODONE 5 mg IR Tab/Cap PO ×2 (11:37→16:31)
--- NOTE | 2023-07-28 11:57 | PC.OT ---
OT TREATMENT ATTEMPTED; PATIENT SLEEPING SOUNDLY. WILL ATTEMPT AGAIN AT A LATER TIME.
--- NOTE | 2023-07-28 12:35 | PM.CONSULT ---
Providers/Reason For Consult Consulting Physician/Specialty*: Roland Rock MD neurology and epilepsy Reason for Consult*: Seizures 07/27/2023 in patient with history of epilepsy in childhood Attending Physician: Eliceo Jensen DO Primary Care Provider: Denice Gaitan History of Present Illness History of Present Illness Valery Rust is a 53 year old female with a history of epilepsy in childhood. Patient reported that she experienced seizures when she was 3 years old and she was started on Tegretol. The patient stated that she has been off of Tegretol for years since she has not experienced any further seizures since she was 3 years of age. The patient stated that she has been on Topamax 25 mg p.o. daily for migraine headaches. On 04/27/2023 the patient underwent total left knee arthroplasty. On 07/27/2023 the patient was witnessed to have a seizure. Patient stated that she has no recall for the event and could not give any further history or details. In view of the patient's recurrent seizure on 07/27/2023 a neurology consult was obtained. Currently the patient is alert and oriented to person place and situation. Patient was restarted on Tegretol 200 mg p.o. twice daily on 07/28/2023 at approximately 8 AM. Head MRI without contrast was obtained on 07/28/2023 and revealed Benign-appearing partially empty sella. Pituitary infundibulum appears midline. Normal optic chiasm. Paucity of pituitary tissue otherwise negative. Drug allergies: Sulfonamide antibiotics which resulted in loss of consciousness Penicillins type reaction unknown Current medications: Tegretol 200 mg p.o. twice daily (started on 07/28/2023) Topamax 25 mg p.o. nightly for migraine headaches Albuterol sulfate 2.5 mg 4 times daily as needed for shortness of breath Albuterol sulfate 90 mcg per accusation 2 puffs every 6 hours as needed Norvasc 10 mg p.o. daily Lipitor 80 mg p.o. daily Azelastine nasal spray 1 spray twice a day as needed Hydrochlorothiazide 25 mg p.o. daily Hydrocodone 10/325 mg tablets 1 p.o. every 6 hours as needed for pain Lisinopril 40 mg p.o. daily Methocarbamol 500 mg p.o. twice a day Metoprolol 50 mg p.o. twice daily Sublingual nitroglycerin 0.4 mg as needed Omeprazole 10 mg p.o. daily Past medical history: Epilepsy in childhood Total left knee replacement Hypertension Chronic obstructive pulmonary disease Peripheral neuropathy Asthma Posttraumatic stress disorder Generalized anxiety disorder Habits: Unknown Family history: Remarkable for a son with epilepsy Review of Systems General: Reports: 10 or more systems reviewed and unremarkable except in HPI and below Medications/Allergies Home Medications Medication Instructions Recorded Confirmed Last Taken Type hydrocodone 10 mg-acetaminophen 1 tab PO Q6H PRN Pain 09/29/21 07/23/23 07/23/23 History 325 mg tablet methocarbamol 500 mg tablet 500 mg PO BID 02/17/22 07/23/23 07/23/23 History nitroglycerin 0.4 mg sublingual 0.4 mg sublingual Q5M PRN chest 04/20/22 07/23/23 Unknown Rx tablet pain #10 tabs umeclidinium 62.5 mcg/actuation 1 inh inhalation DAILY #30 ea 04/30/22 07/23/23 07/23/23 Rx blister powder for inhalation (Incruse Ellipta) albuterol sulfate 2.5 mg/3 mL 2.5 mg (3 mL) inhalation QID PRN 11/09/22 07/23/23 07/21/23 Rx (0.083 %) solution for nebulization shortness of breath or wheezing #180 mL atorvastatin 40 mg tablet 80 mg PO QPM 11/09/22 07/23/23 07/22/23 History ipratropium bromide 0.02 % 2.5 ml inhalation Q6H PRN 11/09/22 07/23/23 Unknown Rx solution for inhalation shortness of breath or wheezing #150 mL budesonide-formoterol HFA 160 2 puff inhalation BID #10.2 grams 01/01/23 07/23/23 07/23/23 Rx mcg-4.5 mcg/actuation aerosol inhaler (Symbicort) amlodipine 10 mg tablet (Norvasc) 10 mg PO DAILY #90 tabs 02/17/23 07/26/23 07/26/23 08:00 Rx hydrochlorothiazide 25 mg tablet 25 mg PO DAILY #30 tabs 03/30/23 07/23/23 07/23/23 Rx albuterol sulfate 90 mcg/actuation 2 puff inhalation Q6H PRN COPD 04/20/23 07/23/23 Unknown Rx aerosol inhaler #8.5 grams omeprazole magnesium 10 mg oral 40 mg PO DAILY 07/12/23 07/23/23 07/22/23 History suspension,delayed release (Prilosec) topiramate 25 mg tablet 25 mg PO .qhs 07/12/23 07/23/23 07/22/23 History azelastine 137 mcg-fluticasone 50 1 spray intranasal BID PRN 07/23/23 07/23/23 Unknown History mcg/spray nasal spray congsetion carbamazepine 200 mg tablet 200 mg PO BID 07/23/23 07/23/23 07/23/23 History metoprolol tartrate 50 mg tablet 50 mg PO BID #180 tabs 07/23/23 07/26/23 07/26/23 08:00 Rx lisinopril 40 mg tablet 40 mg PO DAILY #90 tabs 07/26/23 Unknown Rx Allergies Allergy/AdvReac Type Severity Reaction Status Date / Time Sulfa (Sulfonamide Allergy Severe Unconscious Verified 07/23/23 09:55 Antibiotics) Penicillins Allergy Unknown Unknown Verified 07/23/23 09:55 Current Medications Generic Name Dose Route Start Last Admin Trade Name Freq PRN Reason Stop Dose Admin Albuterol/Ipratropium 3 ml 07/26/23 18:03 07/28/23 07:39 Ipratropium-Albuterol 3 Ml Neb INHALATION 3 ml Q6H PRN Administration SHORTNESS OF BREATH Amlodipine Besylate 10 mg 07/27/23 09:00 07/28/23 08:28 Amlodipine 10 Mg Tablet PO 10 mg DAILY ABEL Administration Apixaban 2.5 mg 07/27/23 09:00 07/28/23 08:29 Apixaban 5 Mg Tablet PO 2.5 mg BID ABEL Administration Budesonide 0.5 mg 07/26/23 20:00 07/28/23 07:39 Budesonide 0.5 Mg/2 Ml Neb INHALATION 0.5 mg BID.RESPIRATORY ABEL Administration Calcium Carbonate 1 each 07/26/23 18:00 07/28/23 08:28 Calcium Carb-Vit D 600mg/400unit 1 Tablet PO 1 each BID ABEL Administration Carbamazepine 200 mg 07/28/23 09:00 07/28/23 08:28 Carbamazepine 200 Mg Tablet PO 200 mg BID ABEL Administration Chlorhexidine Gluconate 30 ml 07/26/23 17:00 07/28/23 08:17 Chlorhexidine Gluconate 0.12% Btl 473 Ml MUCOUS MEM Not Given QID ABEL Docusate Sodium 100 mg 07/26/23 18:00 07/28/23 08:29 Docusate Sodium 100 Mg Capsule PO 100 mg BID [facility] Administration Haloperidol Lactate 1 mg 07/28/23 02:07 07/28/23 02:15 Haloperidol Inj 5 Mg/Ml Inj 1 Ml IVP 1 mg ONCE PRN Administration AGITATION Hydrochlorothiazide 25 mg 07/27/23 09:00 07/28/23 08:28 Hydrochlorothiazide 25 Mg Tablet PO 25 mg DAILY [facility] Administration Hydromorphone HCl 1 mg 07/27/23 10:10 07/28/23 08:29 Hydromorphone 1 Mg/Ml Inj 1 Ml IVP 1 mg Q4H PRN Administration BREAKTHROUGH PAIN Hydroxyzine Pamoate 25 mg 07/27/23 19:44 07/27/23 20:08 Hydroxyzine 25 Mg Capsule PO 25 mg ONCE PRN Administration SLEEP Sodium Chloride 1,000 mls @ 75 mls/hr 07/28/23 03:15 07/28/23 03:27 Sodium Chloride 0.9% IV 75 mls/hr .[id number] [facility] Administration Methocarbamol 500 mg 07/27/23 12:17 07/28/23 11:37 Methocarbamol 500 Mg Tablet PO 500 mg TID PRN Administration MUSCLE SPASMS Metoprolol Tartrate 50 mg 07/26/23 18:10 07/28/23 08:29 Metoprolol Tartrate 50 Mg Tablet PO 50 mg BID [facility] Administration Multivitamins Therapeutic 1 tab 07/27/23 09:00 07/28/23 08:28 Multivitamin Therapeutic Tablet PO 1 tab DAILY [facility] Administration Mupirocin 1 applic 07/26/23 18:00 07/28/23 08:30 Mupirocin Oint 22 Gm NASAL 07/31/23 17:59 Not Given BID [facility] Protocol Oxycodone HCl 5 - 10 mg 07/27/23 12:20 07/28/23 11:37 Oxycodone 5 Mg Ir Tab/Cap PO 10 mg Q4H PRN Administration MODERATE PAIN Polysaccharide Iron Complex 150 mg 07/26/23 18:00 07/28/23 08:28 Iron Polysaccharide Complex 150 Mg Capsule PO 150 mg BIDWM ABEL Administration Senna/Docusate Sodium 2 tab 07/26/23 18:00 07/28/23 08:28 Sennosides-Docusate Tablet PO 2 tab BID ABEL Administration Tramadol HCl 50 mg 07/26/23 16:30 07/27/23 08:29 Tramadol 50 Mg Tablet PO 50 mg Q4H PRN Administration MILD TO MODERATE PAIN PFSH Acute PFSH: Medical History Torn rotator cuff PTSD (post-traumatic stress disorder) Generalized anxiety disorder Anxiety Ectopic delivery delivered Surgical History H/O knee surgery H/O foot surgery Family History Grandmother Cancer Congestive heart failure (CHF) Denies family history of Diabetes CAD (coronary artery disease) Clotting disorder Dementia Hyperlipidemia Psychiatric illness Chronic kidney disease (CKD) Suicide Anesthesia complication Bleeding disorder Family history of premature coronary artery disease Lung disease Hypertension Stroke Social History Smoking and tobacco/nicotine status: current every day tobacco/nicotine user (0.5 ppd) cigarettes Packs smoked per day: 0.5 Years cigarettes smoked: 34 [ Other cigarette details: started at age 17] Quit status (tobacco/nicotine): has tried quititng Second hand smoke exposure: No Alcohol intake: never Substance/Drug Use: never Current occupational status: unemployed Current gender identity: Female Vitals/I&O/Wt Last Vital Signs Temp 98.3 F 07/28/23 11:42 Pulse 77 07/28/23 11:42 Resp 14 07/28/23 11:42 BP 124/79 07/28/23 11:42 Pulse Ox 98 07/28/23 11:42 O2 Del Method Nasal Cannula 07/28/23 11:42 O2 Flow Rate 3 07/28/23 07:39 07/27/23 07/28/23 07/28/23 22:59 06:59 14:59 Intake Total 1066 / 1456 100 / 1556 Output Total 0 / 0 Balance 1066 / 1456 100 / 1556 Weight last 48 hrs Weight 258 lb 5 oz Weight 254 lb 5 oz Weight 232 lb Physical Exam Narrative: The patient is currently alert and oriented x 3. Speech fluent. Head normocephalic. Neck supple. Cranial nerves II through XII grossly intact. Pupils 3 to 4 mm round reactive to light and accommodation. Extraocular movements intact. Motor testing grossly nonfocal. Left knee was not assessed secondary to recent total left knee replacement. Plantar responses flexor bilaterally. Patient able to move all extremities to command. Sensory examination intact to touch. Throat clear. Lungs clear. Heart regular rhythm and rate. Extremities revealed no cyanosis. Urinary Catheter Management: Love: Cath Placed During This Visit: yes, but has since been removed by the nurse Reason for Continuing Indwelling Catheter: Acute Urinary Retention or Obstruction Urinary Catheter Date of Insertion: 07/26/23 Urinary Catheter Time of Insertion: 13:05 Date Urinary Catheter Removed: 07/27/23 Time Urinary Catheter Discontinued: 06:22 Data 07/28/23 04:03 07/28/23 02:20 A&P Assessment and plan (1) Seizure: Impression: 1. 53-year-old female with reports of seizures in childhood. According to the patient her seizures remained stable in childhood and Tegretol was discontinued years ago. Patient reported to experience recurrent seizure on 07/27/2023 (unable to determine description of seizure from the patient) 2. Family history of a son with epilepsy 3. Total left knee replacement 07/26/2023 4. History of posttraumatic stress 5. History of generalized anxiety disorder Plan: 1. Agree with restarting Tegretol 200 mg p.o. twice daily 2. Trough Tegretol level in 1 week 3. Ativan 1 mg IV every 6 hours as needed seizure 4. Surface EEG recording to assess for any subclinical seizure activity and to assist in determining if additional or alternative anticonvulsant medications are required 5. Seizure precautions per state law 6. Seizure/fall precautions during his hospitalization 7. Recommend padding bed rails and have patient up with assistance only 8. Agree with obtaining MRI of the pituitary gland with and without contrast 9. Recommend obtaining endocrinology consult and obtaining labs for pituitary hormones if not already done recently Consult Attestations Medical Necessity Statement: The patient was evaluated by neurology for seizure that occurred on 07/27/2023 Coding Level of Care Code 98331 Diagnoses Seizure R56.9
--- NOTE | 2023-07-28 13:16 | PM.ACPR ---
Procedure/Consent Time out: Time Out Performed: No Acute Procedures Epistaxis Control: Time out performed: No EEG Routine Details of Procedure Details/Comments: Surface EEG recording to assess for any subclinical seizure activity and to assist in determining if additional or alternative anticonvulsant medications are required Valery Rust is a 53 year old female with a history of epilepsy in childhood. Patient reported that she experienced seizures when she was 3 years old and she was started on Tegretol. The patient stated that she has been off of Tegretol for years since she has not experienced any further seizures since she was 3 years of age. The patient stated that she has been on Topamax 25 mg p.o. daily for migraine headaches. On 04/27/2023 the patient underwent total left knee arthroplasty. On 07/27/2023 the patient was witnessed to have a seizure. Patient stated that she has no recall for the event and could not give any further history or details. In view of the patient's recurrent seizure on 07/27/2023 a neurology consult was obtained. Currently the patient is alert and oriented to person place and situation. Patient was restarted on Tegretol 200 mg p.o. twice daily on 07/28/2023 at approximately 8 AM. Head MRI without contrast was obtained on 07/28/2023 and revealed Benign-appearing partially empty sella. Pituitary infundibulum appears midline. Normal optic chiasm. Paucity of pituitary tissue otherwise negative. Drug allergies: Sulfonamide antibiotics which resulted in loss of consciousness Penicillins type reaction unknown Current medications: Tegretol 200 mg p.o. twice daily (started on 07/28/2023) Topamax 25 mg p.o. nightly for migraine headaches Albuterol sulfate 2.5 mg 4 times daily as needed for shortness of breath Albuterol sulfate 90 mcg per accusation 2 puffs every 6 hours as needed Norvasc 10 mg p.o. daily Lipitor 80 mg p.o. daily Azelastine nasal spray 1 spray twice a day as needed Hydrochlorothiazide 25 mg p.o. daily Hydrocodone 10/325 mg tablets 1 p.o. every 6 hours as needed for pain Lisinopril 40 mg p.o. daily Methocarbamol 500 mg p.o. twice a day Metoprolol 50 mg p.o. twice daily Sublingual nitroglycerin 0.4 mg as needed Omeprazole 10 mg p.o. daily Past medical history: Epilepsy in childhood Total left knee replacement Hypertension Chronic obstructive pulmonary disease Peripheral neuropathy Asthma Posttraumatic stress disorder Generalized anxiety disorder Habits: Unknown Family history: Remarkable for a son with epilepsy EEG Routine 35697- awake & drowsy: [id number]
[2023-07-28 13:50] LABS: Carbamazepine Tegretol 3.2 ug/mL (4.0-12.0)
--- NOTE | 2023-07-28 14:11 | P.PN_ITS ---
Subjective 2 Subjective: Patient seen this morning. Seizure-like activity noted overnight. MRI ordered for this morning. Patient slightly drowsy but able to answer questions after waking up. Family member at bedside. Vitals/I&O/Wt Last Vital Signs Temp 98.3 F 07/28/23 11:42 Pulse 77 07/28/23 11:42 Resp 14 07/28/23 11:42 BP 124/79 07/28/23 11:42 Pulse Ox 98 07/28/23 11:42 O2 Del Method Nasal Cannula 07/28/23 11:42 O2 Flow Rate 3 07/28/23 07:39 07/27/23 07/28/23 07/28/23 22:59 06:59 14:59 Intake Total 1066 / 1456 100 / 1556 Output Total 0 / 0 Balance 1066 / 1456 100 / 1556 Weight last 48 hrs Weight 117.169 kg Weight 115.354 kg Weight 105.233 kg Physical Exam 2 Narrative: Obese female laying in bed appearing comfortable however slightly postictal at this time. Appears drowsy. lungs cta b/l abdomen soft, nontender left knee covered with bandage. Trace edema bilateral lower extremities Neuro: Able to move all 4 extremities however quite drowsy at this time. Urinary Catheter Management: Love: Cath Placed During This Visit: yes, but has since been removed by the nurse Reason for Continuing Indwelling Catheter: Acute Urinary Retention or Obstruction Urinary Catheter Date of Insertion: 07/26/23 Urinary Catheter Time of Insertion: 13:05 Date Urinary Catheter Removed: 07/27/23 Time Urinary Catheter Discontinued: 06:22 Data 07/28/23 04:03 07/28/23 02:20 A&P Assessment and plan (1) Postoperative state: (2) Generalized anxiety disorder: (3) Benign essential HTN: (4) Exertional chest pain: (5) COPD (chronic obstructive pulmonary disease): (6) Nicotine addiction: Plan Postop day 2 Left total knee arthroplasty History of COPD Currently on room air Will request DuoNeb respiratory assessment continue budesonide Incentive spirometer at the bedside Uncontrolled hypertension history: Continue amlodipine 10 daily, hydrochlorothiazide 25 daily Continue normal saline 75 cc/h Seizures: Consult neurology. Patient underwent MRI this morning. Neurology recommending MRI pituitary with and without contrast. Will order that for tomorrow morning. ? EEG to be done today. Carbamazepine 200 twice daily, Topamax 25 daily added however patient has said that she does not take carbamazepine anymore. It was discontinued years ago. Home medications have not been confirmed yet. I have ordered to list medications and call MD. We need an accurate med rec at this point. Full code Attestations 2 Medical Necessity Statement*: Patient will require inpatient hospitalization for management of seizures and workup for abnormality on head CT. Diagnoses Postoperative state Z98.890 Generalized anxiety disorder F41.1 Benign essential HTN I10 Exertional chest pain R07.9 COPD (chronic obstructive pulmonary disease) J44.9 Nicotine addiction F17.200
[2023-07-28] MEDS: mupirocin oint 22 gm 1 APPLIC NASAL (17:17)
[2023-07-28] MEDS: chlorhexidine gluconate 0.12% Btl 473 mL 30 ML MUCOUS MEM ×2 (17:18→20:20)
--- NOTE | 2023-07-28 21:36 | P.PN_ITS ---
Subjective 2 Subjective: Patient seen and examined this afternoon after coming back from MRI. Was staffed earlier this morning by nursing staff that overnight patient had a seizure. Talking with her this afternoon she is alert and oriented and she is able to converse she states her last seizure was back when she was a kid. Currently this is being worked up by the hospitalist team and neurology on board getting an MRI and EEG today. At this point in time further workup being performed and patient would require further hospitalization and observation will continue to try and progress her with her therapy and postoperative protocol of her total joint replacement. Patient understands and agrees with current plan. Questions answered. Vitals/I&O/Wt Last Vital Signs Temp 98.9 F 07/28/23 20:00 Pulse 88 07/28/23 20:02 Resp 16 07/28/23 20:20 BP 150/81 07/28/23 20:00 Pulse Ox 97 07/28/23 20:02 O2 Del Method Nasal Cannula 07/28/23 20:02 O2 Flow Rate 3 07/28/23 20:02 07/28/23 07/28/23 07/28/23 06:59 14:59 22:59 Intake Total 100 / 1556 120 / 120 1480 / 1600 Output Total 0 / 0 Balance 100 / 1556 120 / 120 1480 / 1600 Weight last 48 hrs Weight 258 lb 5 oz Weight 254 lb 5 oz Physical Exam 2 Const: COMMON NORMALS: no acute distress and alert Resp: COMMON NORMALS: normal respiratory effort and No retractions Cardio: COMMON NORMALS: Peripheral pulses 2+ throughout PERIPHERAL PULSES: Peripheral pulses 2+ throughout Extremity: NARRATIVE EXTREMITY EXAM: Left knee?normal postop swelling. Patient able to perform straight leg raise and dorsiflex plantarflex foot. Pedal pulses 2+. Compartment soft compressible. Surgical dressing still dry and intact. Neuro: SENSORIUM/ORIENTATION: Yes alert Skin: GENERAL SKIN EXAM: dry skin Urinary Catheter Management: Love: Cath Placed During This Visit: yes, but has since been removed by the nurse Reason for Continuing Indwelling Catheter: Acute Urinary Retention or Obstruction Urinary Catheter Date of Insertion: 07/26/23 Urinary Catheter Time of Insertion: 13:05 Date Urinary Catheter Removed: 07/27/23 Time Urinary Catheter Discontinued: 06:22 Data 07/28/23 04:03 07/28/23 02:20 A&P Assessment and plan (1) Status post total left knee replacement using cement: (2) Postoperative state: (3) Seizure: Plan Plan: -Imaging and Labs reviewed -Hospitalist on board for medical management. -DVT prophylaxis- elquis 2.5 mg BID -Weight-bear as tolerated on left leg leg -Pain control -PT/OT -Internal medicine on board for medical management Change dressing as needed Patient had seizure overnight and being worked up, neurology is consulted imaging of MRI and EEG today. Patient will continue to require hospitalization. Orthopedics will continue to follow Attestations 2 Medical Necessity Statement*: Ongoing care status post left total knee arthroplasty, had seizure overnight and requiring appropriate workup by neurology and hospitalist team appreciate their care Coding Level of Care Code Acute Code for Chg Fwd Diagnoses Status post total left knee replacement using cement Z96.652 Postoperative state Z98.890 Seizure R56.9 Time Spent (min) 20
[2023-07-29] VITALS (15 sets, daily range): BP systolic 123–136; BP diastolic 72–80; PULSE 79–97; RESP 16–18; TEMP 36.7–37; O2SAT 92–98
[2023-07-29] MEDS: HYDROmorphone 1 mg/mL INJ 1 mL IVP ×2 (03:11→11:08)
[2023-07-29 06:44] LABS: Basophils % 0.3 %; Eosinophils # 0.1 10^3/uL (0.0-0.8); Eosinophils % 0.4 %; Hematocrit 32.3 % (36-47); Lymphocytes # 3.7 10^3/uL (0.8-4.8); Lymphocytes % 26.9 %; Mean Corpuscular HGB Conc 31.9 g/dL (30-55); Mean Corpuscular Hemoglobin 31.3 pg (27-33); Mean Corpuscular Volume 98.2 fl (85-98); Mean Platelet Volume 9.9 fL (7.4-10.4); Monocytes # 1.2 10^3/uL (0.2-0.9); Monocytes % 8.3 %; Neutrophils # 8.81 10^3/uL (1.8-7.7); Neutrophils % 63.6 %; Nucleated Red Blood Cells % 0 %; Platelet Count 193 10^3/cmm (157-399); Red Blood Count 3.29 10^6/uL (3.85-5.65); Red Cell Distribution Width 13.2 % (12.1-15.1); White Blood Count 13.86 10^3/uL (3.29-11.43)
--- NOTE | 2023-07-29 07:00 | MR_ITS ---
WS: [id number] MRI OF THE HEAD WITHOUT GADOLINIUM ENHANCEMENT WITH PITUITARY PROTOCOL. INDICATION: Possible seizure with change in consciousness. TECHNIQUE: Axial diffusion, axial FLAIR, coronal T2, high-resolution coronal T2 fat-sat, coronal T2 t hin through the temporal lobes. Axial T1 thin images. Patient refused IV contrast due to pain. FINDINGS: Patient refused IV contrast due to pain. Exam done without gadolinium. No evidence of restricted diffusion to suggest acute ischemia. Ventricular system and basal cisterns are patent. Mild supratentorial white matter changes unchanged from 07/28/2023. This is nonspecific in a patient this age but can be seen with hypertension, diabetes, collagen vascular disease, and migrai ne headaches. No significant parenchymal volume loss. Temporal lobes and hippocampal formations are n ormal in appearance. Normal optic chiasm and pituitary infundibulum. Infundibulum appears midline. Partially empty sella w ith paucity of pituitary tissue. No evidence of sellar or suprasellar mass. No signal abnormalities in the mesial temporal lobes. No evidence of cephalocele protruding into the epitympanum or mastoid. No evidence of CSF leak. LEFT mastoid air cells and middle ear appear well aerated Slight osseous calvarial ridging along the anter ior LEFT middle cranial fossa corresponds to the area described on the CT. No brooke encephalocele or CSF/fluid collection in this area. MR/MR pituitary wo con [id number] IMPRESSION: Exam done without gadolinium per patient request due to pain 1. No evidence of restricted diffusion to suggest acute ischemia. 2. Optic chiasm appears normal with normal midline infundibulum. Partially emp ty sella with paucity of pituitary tissue in the floor of the sella. 3. Temporal lobes and hippocampal formations are normal in appearance. 4. No evidence of cephalocele protruding into the mastoid or epitympanum. No f luid collections in the LEFT mastoid air cells or middle ear. 5. High-resolution temporal bone CT could be obtained to assess the bony integ rity of the middle cranial fossa and tegmen tympani if continued concern.
[2023-07-29 07:01] LABS: Anion Gap 10.3 (5-19); Blood Urea Nitrogen 11 mg/dL (6-20); Carbon Dioxide 31 mmol/L (22-29); Chloride 100 mmol/L (98-107); Creatinine Clr Calc Pharmacy 118.2665; Glomerular Filtration Rate 87.9 mL/min (90-130); Glucose 130 mg/dL (65-115); Osmolality Calculated 287 mOsm/kg (285-295); Potassium 3.3 mmol/L (3.5-5.1); Sodium 138 mmol/L (136-145)
--- NOTE | 2023-07-29 07:40 | P.PN_ITS ---
Subjective 2 Subjective: Valery Rust is a 53 year old female with a history of epilepsy in childhood. Patient reported that she experienced seizures when she was 3 years old and she was started on Tegretol. The patient stated that she has been off of Tegretol for years since she has not experienced any further seizures since she was 3 years of age. The patient stated that she has been on Topamax 25 mg p.o. daily for migraine headaches. On 04/27/2023 the patient underwent total left knee arthroplasty. On 07/27/2023 the patient was witnessed to have a seizure. Patient stated that she has no recall for the event and could not give any further history or details. In view of the patient's recurrent seizure on 07/27/2023 a neurology consult was obtained. Currently the patient is alert and oriented to person place and situation. Patient was restarted on Tegretol 200 mg p.o. twice daily on 07/28/2023 at approximately 8 AM. Head MRI without contrast was obtained on 07/28/2023 and revealed Benign-appearing partially empty sella. Pituitary infundibulum appears midline. Normal optic chiasm. Paucity of pituitary tissue otherwise negative. The patient is doing okay this morning. She denied any seizures during the night. Surface EEG recording was attempted on 07/28/2023 but the patient refused to complete the study and only 5 to 7 minutes was obtained. Therefore this test was inconclusive. Agree with the patient being restarted on Tegretol 200 mg p.o. twice daily and continue seizure precautions per state law and during this hospitalization and continue fall precautions. Drug allergies: Sulfonamide antibiotics which resulted in loss of consciousness Penicillins type reaction unknown Current medications: Tegretol 200 mg p.o. twice daily (started on 07/28/2023) Topamax 25 mg p.o. nightly for migraine headaches Albuterol sulfate 2.5 mg 4 times daily as needed for shortness of breath Albuterol sulfate 90 mcg per accusation 2 puffs every 6 hours as needed Norvasc 10 mg p.o. daily Lipitor 80 mg p.o. daily Azelastine nasal spray 1 spray twice a day as needed Hydrochlorothiazide 25 mg p.o. daily Hydrocodone 10/325 mg tablets 1 p.o. every 6 hours as needed for pain Lisinopril 40 mg p.o. daily Methocarbamol 500 mg p.o. twice a day Metoprolol 50 mg p.o. twice daily Sublingual nitroglycerin 0.4 mg as needed Omeprazole 10 mg p.o. daily Past medical history: Epilepsy in childhood Total left knee replacement Hypertension Chronic obstructive pulmonary disease Peripheral neuropathy Asthma Posttraumatic stress disorder Generalized anxiety disorder Habits: Unknown Family history: Remarkable for a son with epilepsy Review of Systems General: Reports: 10 or mor e systems reviewed and unremarkable except in HPI and below Vitals/I&O/Wt Last Vital Signs Temp 98.0 F 07/29/23 07:27 Pulse 89 07/29/23 07:27 Resp 16 07/29/23 07:27 BP 136/79 07/29/23 07:27 Pulse Ox 93 07/29/23 07:27 O2 Del Method Room Air 07/29/23 07:27 O2 Flow Rate 3 07/28/23 20:02 07/28/23 07/29/23 07/29/23 22:59 06:59 14:59 Intake Total 1810 / 1930 250 / 2180 Balance 1810 / 1930 250 / 2180 Weight last 48 hrs Weight 258 lb 5 oz Weight 258 lb 5 oz Physical Exam 2 Narrative: The patient is currently alert and oriented x 3. Speech fluent. Head normocephalic. Neck supple. Cranial nerves II through XII grossly intact. Pupils 3 to 4 mm round reactive to light and accommodation. Extraocular movements intact. Motor testing grossly nonfocal. Left knee was not assessed secondary to recent total left knee replacement. Plantar responses flexor bilaterally. Patient able to move all extremities to command. Sensory examination intact to touch. Throat clear. Lungs clear. Heart regular rhythm and rate. Extremities revealed no cyanosis. Urinary Catheter Management: Love: Cath Placed During This Visit: yes, but has since been removed by the nurse Reason for Continuing Indwelling Catheter: Acute Urinary Retention or Obstruction Urinary Catheter Date of Insertion: 07/26/23 Urinary Catheter Time of Insertion: 13:05 Date Urinary Catheter Removed: 07/27/23 Time Urinary Catheter Discontinued: 06:22 Data 07/29/23 06:17 07/29/23 06:17 A&P Assessment and plan (1) Seizure: Impression: 1. 53-year-old female with reports of seizures in childhood. According to the patient her seizures remained stable in childhood and Tegretol was discontinued years ago. Patient reported to experience recurrent seizure on 07/27/2023 (unable to determine description of seizure from the patient) 2. Family history of a son with epilepsy 3. Total left knee replacement 07/26/2023 4. History of posttraumatic stress 5. History of generalized anxiety disorder Plan: 1. Agree with restarting Tegretol 200 mg p.o. twice daily 2. Trough Tegretol level in 1 week 3. Ativan 1 mg IV every 6 hours as needed seizure 4. Seizure precautions per state law 5. Seizure/fall precautions during his hospitalization 6. Recommend padding bed rails and have patient up with assistance only 7. Agree with obtaining MRI of the pituitary gland with and without contrast 8. Recommend obtaining endocrinology consult and obtaining labs for pituitary hormones if not already done recently 9. Schedule patient for follow-up in the [facility] neurology clinic 3 to 4 weeks after discharge Attestations 2 Medical Necessity Statement*: The patient was evaluated by neurology for history of seizures in childhood and recurrent seizure during his hospitalization. Coding Level of Care Code Acute Code for [facility] Diagnoses Seizure R56.9
[2023-07-29] MEDS: iron polysaccharide complex 150 mg Capsule PO ×2 (07:57→17:20)
[2023-07-29] MEDS: metoprolol tartrate 50 mg Tablet PO ×2 (07:57→17:19)
[2023-07-29] MEDS: docusate sodium 100 mg Capsule PO ×2 (07:57→17:19)
[2023-07-29] MEDS: amlodipine 10 mg Tablet PO (07:57)
[2023-07-29] MEDS: oxyCODONE 5 mg IR Tab/Cap PO ×4 (07:58→21:22)
[2023-07-29] MEDS: sennosides-docusate Tablet 2 TAB PO ×2 (07:58→17:20)
[2023-07-29] MEDS: methocarbamol 500 mg Tablet PO ×2 (07:58→15:07)
[2023-07-29] MEDS: hydroCHLOROthiazide 25 mg Tablet PO (07:58)
[2023-07-29] MEDS: apixaban 5 mg Tablet 2.5 MG PO ×2 (07:58→17:20)
[2023-07-29] MEDS: calcium carb-vit d 600mg/400unit 1 Tablet 1 EACH PO ×2 (07:58→17:19)
[2023-07-29] MEDS: multivitamin therapeutic Tablet 1 TAB PO (07:58)
[2023-07-29] MEDS: carBAMazepine 200 mg Tablet PO ×2 (07:58→17:20)
[2023-07-29] MEDS: chlorhexidine gluconate 0.12% Btl 473 mL 30 ML MUCOUS MEM ×3 (07:59→17:19)
[2023-07-29] MEDS: mupirocin oint 22 gm 1 APPLIC NASAL ×2 (07:59→17:19)
[2023-07-29] MEDS: sodium chloride 0.9% 1,000 ML 75 ML IV (07:59)
[2023-07-29] MEDS: budesonide 0.5 mg/2 mL Neb INHALATION ×2 (08:17→20:22)
--- NOTE | 2023-07-29 08:48 | P.PN_ITS ---
Subjective 2 Subjective: seen this morning. She says her pain is uncontrolled. MRI brain reviewed. She just returned from pituitary MRI. Result is pending at this time. Vitals/I&O/Wt Last Vital Signs Temp 98.0 F 07/29/23 07:27 Pulse 90 07/29/23 08:00 Resp 16 07/29/23 08:00 BP 136/79 07/29/23 07:27 Pulse Ox 96 07/29/23 08:00 O2 Del Method Room Air 07/29/23 08:00 O2 Flow Rate 3 07/28/23 20:02 07/28/23 07/29/23 07/29/23 22:59 06:59 14:59 Intake Total 1810 / 1930 250 / 2180 875 / 875 Balance 1810 / 1930 250 / 2180 875 / 875 Weight last 48 hrs Weight 117.169 kg Weight 117.169 kg Physical Exam 2 Narrative: Obese female laying in bed awake alert oriented x 3 and complaining of knee pain. lungs cta b/l abdomen soft, nontender left knee covered with bandage. Trace edema bilateral lower extremities Neuro: Nonfocal Urinary Catheter Management: Love: Cath Placed During This Visit: yes, but has since been removed by the nurse Reason for Continuing Indwelling Catheter: Acute Urinary Retention or Obstruction Urinary Catheter Date of Insertion: 07/26/23 Urinary Catheter Time of Insertion: 13:05 Date Urinary Catheter Removed: 07/27/23 Time Urinary Catheter Discontinued: 06:22 Data 07/29/23 06:17 07/29/23 06:17 A&P Assessment and plan (1) Postoperative state: (2) Generalized anxiety disorder: (3) Benign essential HTN: (4) Exertional chest pain: (5) COPD (chronic obstructive pulmonary disease): (6) Nicotine addiction: Plan Postop day 3 Left total knee arthroplasty History of COPD Currently on room air Will request DuoNeb respiratory assessment continue budesonide Incentive spirometer at the bedside Uncontrolled hypertension history: Continue amlodipine 10 daily, hydrochlorothiazide 25 daily Stop IV fluids Seizures: Consult neurology. Patient underwent MRI this morning. Neurology recommending MRI pituitary with and without contrast. Will order that for tomorrow morning. ? EEG to be done today. Carbamazepine 200 twice daily, Topamax 25 daily added however patient has said that she does not take carbamazepine anymore. It was discontinued years ago. Pituitary MRI today. Adjust pain medications. Full code Attestations 2 Medical Necessity Statement*: Defer to primary team Diagnoses Postoperative state Z98.890 Generalized anxiety disorder F41.1 Benign essential HTN I10 Exertional chest pain R07.9 COPD (chronic obstructive pulmonary disease) J44.9 Nicotine addiction F17.200
--- NOTE | 2023-07-29 08:53 | PC.NURSE ---
K+ 3.[address] Vale notified.
[2023-07-29] MEDS: TRAMadol 50 mg Tablet PO (10:19)
--- NOTE | 2023-07-29 11:51 | PC.OT ---
OT TREATMENT ATTEMPTED TWICE THIS A.M. 1ST ATTEMPT: PATIENT BEING TAKEN TO MRI 2ND ATTEMPT: PATIENT RETURNED FROM MRI BUT REPORTS FATIGUE; AGREEABLE TO P.M. TREATMENT
--- NOTE | 2023-07-29 15:36 | PC.OT ---
OT TREATMENT ATTEMPTED THIS P.M. PATIENT REPORTS THAT SHE IS TOO TIRED AND IN TOO MUCH PAIN.
--- NOTE | 2023-07-29 21:55 | P.PN_ITS ---
Subjective 2 Subjective: Patient seen and examined this afternoon. She is completed another MRI. At this point in time she is stabilizing on medications per neurology and stable from neurology/seizure standpoint will need outpatient follow-up. Appreciate the recommendations. Patient still having some issues with pain control would recommend an additional night stay for pain management and now that all of her seizure workup has been complete feel she will likely be ready to discharge home tomorrow we talked about this in detail and she states she feels like she will be ready to discharge tomorrow. Patient understands agrees to current plan. Questions answered. Vitals/I&O/Wt Last Vital Signs Temp 98.6 F 07/29/23 19:37 Pulse 86 07/29/23 20:10 Resp 18 07/29/23 21:22 BP 127/72 07/29/23 19:37 Pulse Ox 92 07/29/23 20:10 O2 Del Method Room Air 07/29/23 20:10 O2 Flow Rate 3 07/28/23 20:02 07/29/23 07/29/23 07/29/23 06:59 14:59 22:59 Intake Total 250 / 2180 1343.75 / 1343.75 240 / 1583.75 Balance 250 / 2180 1343.75 / 1343.75 240 / 1583.75 Weight last 48 hrs Weight 258 lb 5 oz Weight 258 lb 5 oz Physical Exam 2 Const: COMMON NORMALS: no acute distress and alert Resp: COMMON NORMALS: normal respiratory effort and No retractions Cardio: COMMON NORMALS: Peripheral pulses 2+ throughout PERIPHERAL PULSES: Peripheral pulses 2+ throughout Extremity: NARRATIVE EXTREMITY EXAM: Left knee?normal postop swelling. Patient able to wiggle toes and dorsiflex plantarflex foot. Pedal pulses 2+. Compartment soft compressible. Surgical dressing still dry and intact. Neuro: SENSORIUM/ORIENTATION: Yes alert Skin: GENERAL SKIN EXAM: dry skin Urinary Catheter Management: Love: Cath Placed During This Visit: yes, but has since been removed by the nurse Reason for Continuing Indwelling Catheter: Acute Urinary Retention or Obstruction Urinary Catheter Date of Insertion: 07/26/23 Urinary Catheter Time of Insertion: 13:05 Date Urinary Catheter Removed: 07/27/23 Time Urinary Catheter Discontinued: 06:22 Data 07/29/23 06:17 07/29/23 06:17 A&P Assessment and plan (1) Status post total left knee replacement using cement: (2) Postoperative state: (3) Seizure: Plan Plan: -Imaging and Labs reviewed -Hospitalist on board for medical management. -DVT prophylaxis- elquis 2.5 mg BID -Weight-bear as tolerated on left leg leg -Pain control -PT/OT -Internal medicine on board for medical management Change dressing as needed Neurology on board and appreciate recommendations patient currently on medication regiment and outpatient neurology follow-up Still adjusting and working on patient's pain control would recommend additional night stay as she just finally got her last images from appropriate workup standpoint from neurology given seizure during hospitalization. At this point time we will get her another unit to work with therapy as well as therapy tomorrow morning and plan for hopefully discharge tomorrow afternoon. Patient understands agrees current plan. Questions answered. Attestations 2 Medical Necessity Statement*: Ongoing care status post left total knee arthroplasty and hardware removal, with complicated postoperative course of having a seizure on the floor Coding Level of Care Code Acute Code for [facility] Diagnoses Status post total left knee replacement using cement Z96.652 Postoperative state Z98.890 Seizure R56.9 Time Spent (min) 20
[2023-07-29] MEDS: hyDROXYzine 25 mg Capsule PO (23:11)
[2023-07-30] VITALS (8 sets, daily range): BP systolic 119–140; BP diastolic 71–82; PULSE 76–90; RESP 14–18; TEMP 36.6–37.2; O2SAT 90–96
[2023-07-30] MEDS: oxyCODONE 5 mg IR Tab/Cap PO ×4 (04:04→17:53)
--- NOTE | 2023-07-30 04:31 | ECG_ITS ---
[facility] Test Date: 2023-07-30 Pat Name: Valery Rust Department: Room: 251 Gender: Female [employer] Operator: : 1970 Requested By: Gabe Forrester Order Number: [id number] Reji MD: Zackery Mendoza M.D. Measurements Intervals [place] Rate: 87 P: 57 [place]: 175 QRS: 25 QRSD: 89 T: -3 QT: 293 QTc: 354 Interpretive Statements SINUS RHYTHM LOW QRS VOLTAGE IN PRECORDIAL LEADS [QRS DEFLECTION < 1.0 mV IN CHEST LEADS] NONSPECIFIC T-WAVE ABNORMALITY Compared to ECG 07/28/2023 07:42:21 Low QRS voltage now present T-wave abnormality still present Electronically Signed On 07-30-2023 9:19:41 CDT by Zackery Mendoza M.D. [id number]
[2023-07-30 05:06] LABS: Basophils % 0.2 %; Eosinophils # 0.1 10^3/uL (0.0-0.8); Eosinophils % 0.4 %; Hematocrit 30.4 % (36-47); Lymphocytes # 3.6 10^3/uL (0.8-4.8); Lymphocytes % 24.4 %; Mean Corpuscular HGB Conc 31.9 g/dL (30-55); Mean Corpuscular Hemoglobin 31.6 pg (27-33); Mean Platelet Volume 10.1 fL (7.4-10.4); Monocytes # 1.3 10^3/uL (0.2-0.9); Monocytes % 8.7 %; Neutrophils # 9.68 10^3/uL (1.8-7.7); Neutrophils % 65.8 %; Nucleated Red Blood Cells % 0 %; Platelet Count 213 10^3/cmm (157-399); Red Blood Count 3.07 10^6/uL (3.85-5.65); Red Cell Distribution Width 12.9 % (12.1-15.1); White Blood Count 14.73 10^3/uL (3.29-11.43)
[2023-07-30 05:25] LABS: Troponin T (5th) Once 13 ng/L (0-10)
[2023-07-30 05:27] LABS: Anion Gap 12.6 (5-19); Blood Urea Nitrogen 11 mg/dL (6-20); Carbon Dioxide 31 mmol/L (22-29); Chloride 100 mmol/L (98-107); Creatinine Clr Calc Pharmacy 116.0949; Glomerular Filtration Rate 87.9 mL/min (90-130); Glucose 106 mg/dL (65-115); Osmolality Calculated 290 mOsm/kg (285-295); Potassium 3.6 mmol/L (3.5-5.1); Sodium 140 mmol/L (136-145)
[2023-07-30] MEDS: ipratropium-albuterol 3 mL Neb INHALATION (08:06)
[2023-07-30] MEDS: budesonide 0.5 mg/2 mL Neb INHALATION (08:06)
[2023-07-30] MEDS: multivitamin therapeutic Tablet 1 TAB PO (08:29)
[2023-07-30] MEDS: iron polysaccharide complex 150 mg Capsule PO (08:30)
[2023-07-30] MEDS: sennosides-docusate Tablet 2 TAB PO (08:30)
[2023-07-30] MEDS: calcium carb-vit d 600mg/400unit 1 Tablet 1 EACH PO (08:30)
[2023-07-30] MEDS: apixaban 5 mg Tablet 2.5 MG PO (08:30)
[2023-07-30] MEDS: docusate sodium 100 mg Capsule PO (08:33)
[2023-07-30] MEDS: amlodipine 10 mg Tablet PO (08:33)
[2023-07-30] MEDS: hydroCHLOROthiazide 25 mg Tablet PO (08:33)
[2023-07-30] MEDS: carBAMazepine 200 mg Tablet PO (08:33)
[2023-07-30] MEDS: metoprolol tartrate 50 mg Tablet PO (08:35)
--- NOTE | 2023-07-30 09:00 | P.PN_ITS ---
Subjective 2 Subjective: pt complains of chest pain this am EKG wnl repeat ekg wnl says its in middle of her chest however does not if its anxiety or if its her heart however did tell the nurse i know i am not having a heart attack has concerns of going home and something happening to her trop 13, repeat trop 12 had a coronary angiogram last year with patent coronaries i have ordered a gi cocktail and ativan for pt echo also ordered due to patients concerns Vitals/I&O/Wt Last Vital Signs Temp 97.9 F 07/30/23 07:43 Pulse 90 07/30/23 08:06 Resp 18 07/30/23 08:06 BP 125/76 07/30/23 07:43 Pulse Ox 96 07/30/23 08:06 O2 Del Method Room Air 07/30/23 08:06 O2 Flow Rate 3 07/28/23 20:02 07/29/23 07/30/23 07/30/23 22:59 06:59 14:59 Intake Total 240 / 1583.75 Balance 240 / 1583.75 Weight last 48 hrs Weight 113.511 kg Weight 117.169 kg Physical Exam 2 Narrative: Obese female laying in bed awake alert oriented x 3 and complaining of chest pain describing as sharp and sometimes pressure. says she is not sure if its anxiety lungs cta b/l abdomen soft, nontender left knee covered with bandage. Trace edema bilateral lower extremities Neuro: Nonfocal Urinary Catheter Management: Love: Cath Placed During This Visit: yes, but has since been removed by the nurse Reason for Continuing Indwelling Catheter: Acute Urinary Retention or Obstruction Urinary Catheter Date of Insertion: 07/26/23 Urinary Catheter Time of Insertion: 13:05 Date Urinary Catheter Removed: 07/27/23 Time Urinary Catheter Discontinued: 06:22 Data 07/30/23 04:26 07/30/23 04:26 A&P Assessment and plan (1) Postoperative state: (2) Generalized anxiety disorder: (3) Benign essential HTN: (4) Exertional chest pain: (5) COPD (chronic obstructive pulmonary disease): (6) Nicotine addiction: Plan Postop day 4 Left total knee arthroplasty History of COPD Currently on room air Will request DuoNeb respiratory assessment continue budesonide Incentive spirometer at the bedside Uncontrolled hypertension history: Continue amlodipine 10 daily, hydrochlorothiazide 25 daily Stop IV fluids Seizures: Consult neurology. Patient underwent MRI this morning. Neurology recommending MRI pituitary with and without contrast. Will order that for tomorrow morning. ? EEG to be done today. Carbamazepine 200 twice daily, Topamax 25 daily added however patient has said that she does not take carbamazepine anymore. It was discontinued years ago. Pituitary MRI complete. Results reviewed. Pt to f/u with neurology and endocrinology as outpatient Chest pain - clean coronary angiogram last year 2022 - now has sharp vs pressure like chest pain - hx of anxiety - pt very concerned of chest pain - check trops. 12, 13. will check 6 hour trop as well - ekg x2 reviewed. Sinus rhtythm - check echo - further recommendations will be dictated once above results available Adjust pain medications. Full code Attestations 2 Medical Necessity Statement*: Defer to primary team Diagnoses Postoperative state Z98.890 Generalized anxiety disorder F41.1 Benign essential HTN I10 Exertional chest pain R07.9 COPD (chronic obstructive pulmonary disease) J44.9 Nicotine addiction F17.200
--- NOTE | 2023-07-30 09:23 | ECG_ITS ---
[facility] Test Date: 2023-07-30 Pat Name: Valery Rust Department: Room: 251 Gender: Female [employer] Supervisor: : 1970 Requested By: Valeria Vale Order Number: [id number] Reji MD: Zackery Mendoza M.D. Measurements Intervals [place] Rate: 87 P: 52 [place]: 171 QRS: 25 QRSD: 98 T: -8 QT: 327 QTc: 393 Interpretive Statements SINUS RHYTHM Compared to ECG 07/30/2023 04:31:29 T-wave abnormality no longer present Electronically Signed On 07-30-2023 14:51:20 CDT by Zackery Mendoza M.D. [id number]
[2023-07-30] MEDS: lidocaine 2% viscous 15 ML, aluminum-mag hydrox-simethicon 30 ML, sucralfate oral liq 1 GM PO (09:53)
[2023-07-30] MEDS: LORazepam 0.5 mg Tablet 0.125 MG PO (09:57)
--- NOTE | 2023-07-30 10:12 | USCV_ITS ---
Valery Rust Age: 53 Gender: F : 1970 Exam Date: 07/30/2023 10:34 Ordering Phys: Valeria Vale MD Technologist: CT Exam Location: [facility] [place] Indication: cp BP: 130 / 82 HR: 85 Rhythm: Sinus Technical Quality: Adequate MEASUREMENTS (Male / Female) Normal Values 2D ECHO LVOT Diameter 2.1 cm LV Ejection Fraction MOD 2C 73.4 % LV Ejection Fraction 2C AL 72.6 % LA Diameter 3.1 cm LA Sys Volume AL 44.2 cm cubed LA Sys Volume Index AL 19.7 cm cubed/m squared Aorta at Sinotubular Diameter 2.7 cm IVC Diameter 2.1 cm M-MODE LA Ao Ratio MM 1.3 AV Cusp Separation MM 2.1 cm DOPPLER AV Peak Velocity 179.0 cm/s LVOT Peak Velocity 126.0 cm/s AV Area Cont Eq vti 2.1 cm squared AV Area Cont Eq pk 2.4 cm squared MV Peak Velocity 111.0 cm/s MV Area PHT 5.1 cm squared Mitral E to A Ratio 1.3 TV Peak Velocity 130.5 cm/s TR Peak Velocity 157.0 cm/s TR Peak Gradient 9.9 mmHg TV Peak E Velocity 95.0 cm/s Right Atrial Pressure 3.0 mmHg Pulmonary Artery Systolic Pressu 12.9 mmHg PV Peak Velocity 133.0 cm/s FINDINGS Left Ventricle Normal left ventricular size and systolic function, EF 73%. No gross wall motion normalities.mild left ventricular hypertrophy. Right Ventricle Normal right ventricular size and systolic function. Right Atrium The right atrium is normal in size. Left Atrium The left atrium is normal in size. Mitral Valve No gross abnormalities noted Aortic Valve No gross abnormalities noted Tricuspid Valve Trace tricuspid valve regurgitation. Pulmonic Valve No gross abnormalities noted Pericardium Normal pericardium without effusion. Aorta Normal ascending aorta dimension. IVC Normal inferior vena cava. CONCLUSIONS Normal left ventricular size and systolic function, EF 73%. No gross wall motion normalities.mild left ventricular hypertrophy. Normal cardiac chamber sizes. Trace tricuspid valve regurgitation. There is no pericardial effusion. There are no intracardiac masses. Compared to the study from 06/03/2022, there may not be significant change Dr Ladi Steele MD FAC (Electronically Signed) Final Date: 30 Jul 2023 19:53 S
[2023-07-30 10:42] LABS: Troponin T (5th) Once 12 ng/L (0-10)
--- NOTE | 2023-07-30 13:23 | P.PN_ITS ---
Subjective 2 Subjective: Patient seen and examined this morning she is completed her workup from her seizure she is going home on medications appreciate neurology and primary care's workup. She is still having pain which to be expected it is controlled with current pain medication regiment. She was complaining of chest pain earlier this morning which has been worked up by the hospitalist as well as cardiology seen patient and there is no acute cardiac cause and as result they have deemed patient stable for discharge. She stable for discharge from orthopedic standpoint. Vitals/I&O/Wt Last Vital Signs Temp 98.0 F 07/30/23 12:00 Pulse 76 07/30/23 12:00 Resp 14 07/30/23 12:00 BP 125/76 07/30/23 07:43 Pulse Ox 94 07/30/23 12:00 O2 Del Method Room Air 07/30/23 12:00 O2 Flow Rate 3 07/28/23 20:02 07/29/23 07/30/23 07/30/23 22:59 06:59 14:59 Intake Total 240 / 1583.75 240 / 240 Balance 240 / 1583.75 240 / 240 Weight last 48 hrs Weight 250 lb 4 oz Weight 258 lb 5 oz Physical Exam 2 Const: COMMON NORMALS: no acute distress and alert Resp: COMMON NORMALS: normal respiratory effort and No retractions Cardio: COMMON NORMALS: Peripheral pulses 2+ throughout PERIPHERAL PULSES: Peripheral pulses 2+ throughout Extremity: NARRATIVE EXTREMITY EXAM: Left knee?normal postop swelling. Fabian bandage taken down and patient has sofy dressing on in place with good seal there is only 2 small spots of saturation noted. Patient able to wiggle toes and dorsiflex plantarflex foot. Pedal pulses 2+. Compartment soft compressible. Surgical dressing still dry and intact. Neuro: SENSORIUM/ORIENTATION: Yes alert Skin: GENERAL SKIN EXAM: dry skin Urinary Catheter Management: Love: Cath Placed During This Visit: yes, but has since been removed by the nurse Reason for Continuing Indwelling Catheter: Acute Urinary Retention or Obstruction Urinary Catheter Date of Insertion: 07/26/23 Urinary Catheter Time of Insertion: 13:05 Date Urinary Catheter Removed: 07/27/23 Time Urinary Catheter Discontinued: 06:22 Data 07/30/23 04:26 07/30/23 04:26 A&P Assessment and plan (1) Status post total left knee replacement using cement: (2) Postoperative state: (3) Seizure: Plan Plan: -Imaging and Labs reviewed -Hospitalist on board for medical management. -DVT prophylaxis- elquis 2.5 mg BID -Weight-bear as tolerated on left leg leg -Pain control -PT/OT -Internal medicine on board for medical management Change dressing as needed Neurology on board and appreciate recommendations patient currently on medication regiment and outpatient neurology follow-up Patient had chest pain this morning cardiology has been consulted worked up no acute cardiac causes stable for discharge from orthopedic standpoint as well as cardiology neurology and internal medicine. Will discharge later today. Attestations 2 Medical Necessity Statement*: Ongoing care status post total knee replacement, chest pain and seizure postop Coding Level of Care Code Acute Code for Chg Fwd Diagnoses Status post total left knee replacement using cement Z96.652 Postoperative state Z98.890 Seizure R56.9
--- NOTE | 2023-07-30 16:56 | P.CONIM_ITS ---
Providers/Reason For Consult 2 Consulting Physician/Specialty*: CHARMAINE Steele MD/cardiology Reason for Consult*: Patient with chest pain Requesting Physician: Dr. Vale Attending Physician: Eliceo Jensen DO Primary Care Provider: Denice Gaitan History of Present Illness History of Present Illness Valery Rust is a 53 year old female, was admitted to the hospital on the sixth of this month for left total knee arthroplasty and hardware removal. She apparently had an uncomplicated postprocedural course. She is complaining of chest pain for the last 3 days. The pain is in the upper substernal region radiating across the chest into the shoulders. The pain is constant and gets worse with a deep inspiration. She has no associated shortness of breath or nausea. No palpitation or dizziness. This patient has a history of chest pain off and on for the last couple of years. She had a cardiac catheterization a year ago and was found to have no significant obstructive coronary artery disease. She had an elevated LVEDP. She has a history of hypertension, dyslipidemia, reactive airway disease Patient has history of smoking abuse at least a pack a day for the last more than 20 years.? No alcohol abuse or any substance abuse.? Her grandmother on the mom's side had a congestive heart failure.? Her great grandmother and grandfather also had heart problems.? Details are not available. Review of Systems 2 Narrative: CONSTITUTIONAL: No fever or chills. EYES: No blurring of vision or other visual disturbances lately. ENT: No hoarseness of voice, auditory disturbances or sore throat. CARDIOVASCULAR: As mentioned above. RESPIRATORY: Patient has been having a cough for the last few days since the hospital admission. GASTROINTESTINAL: No hematemesis or melena. GENITOURINARY: No dysuria or hematuria. INTEGUMENTARY: No skin rashes or history of skin cancer. NEURO: No transient ischemic attacks or amaurosis. PSYCHIATRIC: No history of psychosis or major depression. HEMATOLOGIC: No bleeding disorders or significant anemia. ENDOCRINE: No history of polyuria or polydipsia. MUSCULOSKELETAL: Recent surgery as mentioned above ALLERGY/IMMUNOLOGY: As mentioned above. Medications/Allergies Home Medications Medication Instructions Recorded Confirmed Last Taken Type hydrocodone 10 mg-acetaminophen 1 tab PO Q6H PRN Pain 09/29/21 07/23/23 07/23/23 History 325 mg tablet methocarbamol 500 mg tablet 500 mg PO BID 02/17/22 07/23/23 07/23/23 History nitroglycerin 0.4 mg sublingual 0.4 mg sublingual Q5M PRN chest 04/20/22 07/23/23 Unknown Rx tablet pain #10 tabs umeclidinium 62.5 mcg/actuation 1 inh inhalation DAILY #30 ea 04/30/22 07/23/23 07/23/23 Rx blister powder for inhalation (Incruse Ellipta) albuterol sulfate 2.5 mg/3 mL 2.5 mg (3 mL) inhalation QID PRN 11/09/22 07/23/23 07/21/23 Rx (0.083 %) solution for nebulization shortness of breath or wheezing #180 mL atorvastatin 40 mg tablet 80 mg PO QPM 11/09/22 07/23/23 07/22/23 History ipratropium bromide 0.02 % 2.5 ml inhalation Q6H PRN 11/09/22 07/23/23 Unknown Rx solution for inhalation shortness of breath or wheezing #150 mL budesonide-formoterol HFA 160 2 puff inhalation BID #10.2 grams 01/01/23 07/23/23 07/23/23 Rx mcg-4.5 mcg/actuation aerosol inhaler (Symbicort) amlodipine 10 mg tablet (Norvasc) 10 mg PO DAILY #90 tabs 02/17/23 07/26/23 07/26/23 08:00 Rx hydrochlorothiazide 25 mg tablet 25 mg PO DAILY #30 tabs 03/30/23 07/23/23 07/23/23 Rx albuterol sulfate 90 mcg/actuation 2 puff inhalation Q6H PRN COPD 04/20/23 07/23/23 Unknown Rx aerosol inhaler #8.5 grams omeprazole magnesium 10 mg oral 40 mg PO DAILY 07/12/23 07/23/23 07/22/23 History suspension,delayed release (Prilosec) azelastine 137 mcg-fluticasone 50 1 spray intranasal BID PRN 07/23/23 07/23/23 Unknown History mcg/spray nasal spray congsetion metoprolol tartrate 50 mg tablet 50 mg PO BID #180 tabs 07/23/23 07/26/2324 08:00 Rx apixaban 2.5 mg tablet (Eliquis) 2.5 mg PO BID 2 weeks #28 tabs 07/26/23 Unknown Rx lisinopril 40 mg tablet 40 mg PO DAILY #90 tabs 07/26/23 Unknown Rx ondansetron 4 mg disintegrating 4 mg PO Q8H PRN nausea and 07/26/23 Unknown Rx tablet vomiting 3 days #9 tabs calcium carbonate 600 mg-vitamin 1 tab PO BID #60 tabs 07/30/23 Unknown Rx D3 10 mcg (400 unit) tablet carbamazepine 200 mg tablet 200 mg PO BID #60 tabs 07/30/23 Unknown Rx docusate sodium 100 mg capsule 100 mg PO BID #60 caps 07/30/23 Unknown Rx ibuprofen 400 mg tablet 400 mg PO Q8H PRN pain 3 days #20 07/30/23 Unknown Rx tabs oxycodone 5 mg tablet 5 mg PO Q4H PRN pain postop 7 days 07/30/23 Unknown Rx #42 tabs pantoprazole 40 mg tablet,delayed 40 mg PO DAILY #20 tabs 07/30/23 Unknown Rx release (Protonix) polysaccharide iron complex 150 mg 150 mg PO DAILY #30 caps 07/30/23 Unknown Rx iron capsule (Ferrex) topiramate 25 mg tablet 25 mg PO .qhs #30 tabs 07/30/23 Unknown Rx Allergies Allergy/AdvReac Type Severity Reaction Status Date / Time Sulfa (Sulfonamide Allergy Severe Unconscious Verified 07/23/23 09:55 Antibiotics) Penicillins Allergy Unknown Unknown Verified 07/23/23 09:55 Current Medications Generic Name Dose Route Start Last Admin Trade Name Freq PRN Reason Stop Dose Admin Albuterol/Ipratropium 3 ml 07/26/23 18:03 07/30/23 08:06 Ipratropium-Albuterol 3 Ml Neb INHALATION 3 ml Q6H PRN Administration SHORTNESS OF BREATH Amlodipine Besylate 10 mg 07/27/23 09:00 07/30/23 08:33 Amlodipine 10 Mg Tablet PO 10 mg DAILY ABEL Administration Apixaban 2.5 mg 07/27/23 09:00 07/30/23 08:30 Apixaban 5 Mg Tablet PO 2.5 mg BID ABEL Administration Budesonide 0.5 mg 07/26/23 20:00 07/30/23 08:06 Budesonide 0.5 Mg/2 Ml Neb INHALATION 0.5 mg BID.RESPIRATORY ABEL Administration Calcium Carbonate 1 each 07/26/23 18:00 07/30/23 08:30 Calcium Carb-Vit D 600mg/400unit 1 Tablet PO 1 each BID ABEL Administration Carbamazepine 200 mg 07/28/23 09:00 07/30/23 08:33 Carbamazepine 200 Mg Tablet PO 200 mg BID ABEL Administration Chlorhexidine Gluconate 30 ml 07/26/23 17:00 07/30/23 10:53 Chlorhexidine Gluconate 0.12% Btl 473 Ml MUCOUS MEM Not Given QID ABEL Docusate Sodium 100 mg 07/26/23 18:00 07/30/23 08:33 Docusate Sodium 100 Mg Capsule PO 100 mg BID [facility] Administration Haloperidol Lactate 1 mg 07/28/23 02:07 07/28/23 02:15 Haloperidol Inj 5 Mg/Ml Inj 1 Ml IVP 1 mg ONCE PRN Administration AGITATION Hydrochlorothiazide 25 mg 07/27/23 09:00 07/30/23 08:33 Hydrochlorothiazide 25 Mg Tablet PO 25 mg DAILY [facility] Administration Hydromorphone HCl 1 mg 07/27/23 10:10 07/29/23 11:08 Hydromorphone 1 Mg/Ml Inj 1 Ml IVP 1 mg Q4H PRN Administration BREAKTHROUGH PAIN Methocarbamol 500 mg 07/27/23 12:17 07/29/23 15:07 Methocarbamol 500 Mg Tablet PO 500 mg TID PRN Administration MUSCLE SPASMS Metoprolol Tartrate 50 mg 07/26/23 18:10 07/30/23 08:35 Metoprolol Tartrate 50 Mg Tablet PO 50 mg BID [facility] Administration Multivitamins Therapeutic 1 tab 07/27/23 09:00 07/30/23 08:29 Multivitamin Therapeutic Tablet PO 1 tab DAILY [facility] Administration Mupirocin 1 applic 07/26/23 18:00 07/30/23 10:53 Mupirocin Oint 22 Gm NASAL 07/31/23 17:59 Not Given BID [facility] Protocol Oxycodone HCl 5 - 10 mg 07/27/23 12:20 07/30/23 12:34 Oxycodone 5 Mg Ir Tab/Cap PO 5 mg Q4H PRN Administration MODERATE PAIN Polysaccharide Iron Complex 150 mg 07/26/23 18:00 07/30/23 08:30 Iron Polysaccharide Complex 150 Mg Capsule PO 150 mg BIDWM ABEL Administration Senna/Docusate Sodium 2 tab 07/26/23 18:00 07/30/23 08:30 Sennosides-Docusate Tablet PO 2 tab BID ABEL Administration Tramadol HCl 50 mg 07/26/23 16:30 07/29/23 10:19 Tramadol 50 Mg Tablet PO 50 mg Q4H PRN Administration MILD TO MODERATE PAIN PFSH Acute 2 PFSH: Medical History Torn rotator cuff PTSD (post-traumatic stress disorder) Generalized anxiety disorder Anxiety Ectopic delivery delivered Surgical History H/O knee surgery H/O foot surgery Family History Grandmother Cancer Congestive heart failure (CHF) Denies family history of Diabetes CAD (coronary artery disease) Clotting disorder Dementia Hyperlipidemia Psychiatric illness Chronic kidney disease (CKD) Suicide Anesthesia complication Bleeding disorder Family history of premature coronary artery disease Lung disease Hypertension Stroke Social History Smoking and tobacco/nicotine status: current every day tobacco/nicotine user (0.5 ppd) cigarettes Packs smoked per day: 0.5 Years cigarettes smoked: 34 [ Other cigarette details: started at age 17] Quit status (tobacco/nicotine): has tried quititng Second hand smoke exposure: No Alcohol intake: never Substance/Drug Use: never Current occupational status: unemployed Current gender identity: Female Vitals/I&O/Wt Last Vital Signs Temp 98.3 F 07/30/23 16:00 Pulse 86 07/30/23 16:00 Resp 16 07/30/23 16:00 BP 140/82 07/30/23 16:00 Pulse Ox 95 07/30/23 16:00 O2 Del Method Room Air 07/30/23 16:00 O2 Flow Rate 3 07/28/23 20:02 07/30/23 07/30/23 07/30/23 06:59 14:59 22:59 Intake Total 480 / 480 Balance 480 / 480 Weight last 48 hrs Weight 250 lb 4 oz Weight 258 lb 5 oz Physical Exam 2 Narrative: GENERAL: The patient is alert and oriented times three. Not in any acute distress. HEENT: No significant pallor, icterus or lymphadenopathy.Oral cavity: There are no mucous membrane lesions. NECK: Trachea appears to be central. No masses noted. No JVD or thyromegaly appreciated. RESPIRATORY: Patient has significant chest wall tenderness on either side mostly at the costochondral junction. BREASTS: Deferred. HEART: The heart sounds are normal. No S3 or S4. No significant murmurs. No pericardial rub ABDOMEN: No vessel pulsations or distention. No tenderness. No organomegaly appreciated. Bowel sounds are normally heard. : Deferred. RECTAL: Deferred. LYMPHATIC: No lymphadenopathy noted in the neck. EXTREMITIES: No edema or cyanosis. No clubbing. MUSCULOSKELETAL: No acute joint deformities or swelling SKIN: There are no significant rashes or ecchymosis NEUROPSYCHIATRIC: The patient is alert and oriented x3. Appears to be in a good mood. No tremors or rigidity noted. Urinary Catheter Management: Love: Cath Placed During This Visit: yes, but has since been removed by the nurse Reason for Continuing Indwelling Catheter: Acute Urinary Retention or Obstruction Urinary Catheter Date of Insertion: 07/26/23 Urinary Catheter Time of Insertion: 13:05 Date Urinary Catheter Removed: 07/27/23 Time Urinary Catheter Discontinued: 06:22 Data 07/30/23 04:26 07/30/23 04:26 Other Labs: Laboratory Last Values WBC 14.73 10^3/uL (3.29-11.43) H 07/30/23 04:26 RBC 3.07 10^6/uL (3.85-5.65) L 07/30/23 04:26 Hgb 9.70 g/dL (11.27-16.99) L 07/30/23 04:26 Hct 30.4 % (36-47) L 07/30/23 04:26 MCV 99.0 fl (85-98) H 07/30/23 04:26 MCH 31.6 pg (27-33) 07/30/23 04: MCHC 31.9 g/dL (30-55) 07/30/23 04:26 RDW 12.9 % (12.1-15.1) 07/30/23 04:26 Plt Count 213 10^3/cmm (157-399) 07/30/23 04: MPV 10.1 fL (7.4-10.4) 07/30/23 04:26 Neut % (Auto) 65.8 % 07/30/23 04:26 Lymph % (Auto) 24.4 % 07/30/23 04:26 [place] % (Auto) 8.7 % 07/30/23 04:26 Eos % (Auto) 0.4 % 07/30/23 04:26 Baso % (Auto) 0.2 % 07/30/23 04:26 Neut # (Auto) 9.68 10^3/uL (1.8-7.7) H 07/30/23 04:26 Lymph # (Auto) 3.6 10^3/uL (0.8-4.8) 07/30/23 04:26 [place] # (Auto) 1.3 10^3/uL (0.2-0.9) H 07/30/23 04:26 Eos # (Auto) 0.1 10^3/uL (0.0-0.8) 07/30/23 04:26 Baso # (Auto) 0.0 10^3/uL (0.0-0.1) 07/30/23 04: Nucleated RBC % (auto) 0 % 07/30/23 04: Nucleated RBCs # 0.0 /100WBC 07/30/23 04:26 Specimen Type Arterial 07/28/23 01:50 Sample Site Radial, left 07/28/23 01:50 ABG pH 7.22 (7.35-7.45) L 07/28/23 01:50 ABG pCO2 54.5 mmHg (35-45) H 07/28/23 01:50 ABG pO2 116.0 mmHg (80.0-100.0) H 07/28/23 01:50 ABG PO2/FiO2 Ratio 0 07/28/23 01:50 ABG HCO3 22.3 mmol/L (22-26) 07/28/23 01:50 ABG O2 Saturation 98.5 07/28/23 01:50 ABG Base Excess -5.8 mmol/L (-2.0-2.0) L 07/28/23 01:50 Steve Test Pos 07/28/23 01:50 A-a O2 Gradient 1.8 mmHg (5-10) L 07/28/23 01:50 Hematocrit 37.6 % (37-47) 07/28/23 01:50 Hgb O2 Saturation 96.3 % (95-100) 07/28/23 01:50 Carboxyhemoglobin 1.4 %THgb (0.4-20.1) 07/28/23 01:50 Methemoglobin 0.8 % (0.4-1.5) 07/28/23 01:50 Total Hemoglobin 12.3 g/dL (12-16) 07/28/23 01:50 Sodium 143.0 mmol/L (131-143) 07/28/23 01:50 Potassium 3.2 mmol/L (3.5-5.0) L 07/28/23 01:50 Glucose 134.0 mg/dL (70-115) H 07/28/23 01:50 Ionized Calcium 1.4 mmol/L (1.1-1.4) 07/28/23 01:50 O2 Delivery Device Nc 07/28/23 01:50 O2 Liters/Min 2.0 % 07/28/23 01:50 FiO2 28.0 % 07/28/23 01:50 Wire Wheeler ID [place] 07/28/23 01:50 Sodium 140 mmol/L (136-145) 07/30/23 04:26 Potassium 3.6 mmol/L (3.5-5.1) 07/30/23 04:26 Chloride 100 mmol/L (98-107) 07/30/23 04:26 Carbon Dioxide 31 mmol/L (22-29) H 07/30/23 04:26 Anion Gap 12.6 (5-19) 07/30/23 04:26 BUN 11 mg/dL (6-20) 07/30/23 04:26 Creatinine 0.7 mg/dL (0.5-0.9) 07/30/23 04:26 GFR Calculation 87.9 mL/min (90-130) L 07/30/23 04:26 Glucose 106 mg/dL (65-115) 07/30/23 04:26 POC Glucose 132 mg/dL (70-110) H 07/28/23 01:50 Calculated Osmolality 290 mOsm/kg (285-295) 07/30/23 04:26 Lactic Acid 3.4 mmol/L (0.5-2.2) H 07/28/23 02:20 Lactic Acid (Sepsis) 0.9 mmol/L (0.5-2.2) 07/28/23 04:03 Calcium 9.0 mg/dL (8.5-10.5) 07/30/23 04:26 Phosphorus 4.3 mg/dL (2.5-4.5) 07/28/23 02:20 Magnesium 1.6 mg/dL (1.7-2.3) L 07/28/23 02:20 Total Bilirubin 0.3 mg/dL (0.15-1.2) 07/28/23 02:20 AST 23 U/L (0-32) 07/28/23 02:20 ALT 19 U/L (0-33) 07/28/23 02:20 Alkaline Phosphatase 112 U/L (35-105) H 07/28/23 02:20 Ammonia 50 umol/L (11-51) 07/28/23 02:20 Creatine Kinase 559 U/L (26-192) H* 07/28/23 02:20 Troponin T 5th Gen ng/L 12 ng/L (0-10) H 07/30/23 10:14 Troponin T Baseline 12 ng/L (0-10) H 07/28/23 02:20 Troponin T 120 Minute 26.46 ng/L (0-10) H 07/28/23 04:03 Delta Troponin T 14.46 ABS# (0-10) H* 07/28/23 04:03 Troponin T Hi Sens 6Hr 24.14 ng/L (0-10) H 07/28/23 09:40 Troponin T Hi Sens 6Hr Delta 12.14 ng/L (0-12) H* 07/28/23 09:40 C-Reactive Protein 95.3 mg/L (0.0-4.9) H 07/28/23 02:20 Total Protein 6.3 g/dL (6.6-8.7) L 07/28/23 02:20 Albumin 3.8 g/dL (3.5-5.2) 07/28/23 02:20 Globulin 2.5 g/dL (1.3-4.6) 05/08/24 02:20 Procalcitonin 0.08 ng/mL (0-0.5) 07/28/23 02:20 Urine Opiates Screen Positive ng/mL (Negative) H 07/28/23 05:05 Ur Barbiturates Screen Negative ng/mL (Negative) 07/28/23 05:05 Carbamazepine 3.2 ug/mL (4.0-12.0) L 07/28/23 13:17 Ur Phencyclidine Scrn Negative ng/mL (Negative) 07/28/23 05:05 Ur Amphetamines Screen Negative ng/mL (Negative) 07/28/23 05:05 U Benzodiazepines Scrn Positive ng/mL (Negative) H 07/28/23 05:05 Urine Cocaine Screen Negative ng/mL (Negative) 07/28/23 05:05 U Marijuana (THC) Screen Negative ng/mL (Negative) 07/28/23 05:05 Blood Type A Positive 07/26/23 12:07 Rho(D) Type Rh positive 07/26/23 12:07 Antibody Screen Negative 07/26/23 12:07 EKG 1: My Interpretation: Normal sinus rhythm with some nonspecific T wave changes. Otherwise unremarkable. Other data: Cardiac catheterization on 06/24/2022 Diagnostic Findings * Left main is a medium caliber vessel with no significant stenotic lesions. * The left anterior descending artery is a medium caliber low centimeter appears to wraparound the LV apex medially.. No significant stenotic lesions were noted. * Left circumflex artery is a medium caliber vessel with no significant stenotic lesions. * The right coronary artery is a medium to large caliber dominant vessel with no significant stenotic lesions. It has a low and posterior takeoff. A&P Assessment and plan (1) Chest pain: The patient chest pain is most likely musculoskeletal. She has significant chest wall tenderness. Most likely this is related to costochondritis. No evidence of myocardial injury. No significant EKG changes. Qualifiers: Chest pain type: chest pain on breathing Qualified Code(s): R07.1 - Chest pain on breathing (2) Benign essential HTN: Currently normotensive (3) Dyslipidemia: May continue on the current medications (4) Nicotine dependence, unspecified, uncomplicated: Qualifiers: Nicotine product type: cigarettes Qualified Code(s): F17.210 - Nicotine dependence, cigarettes, uncomplicated (5) Generalized anxiety disorder: Continue on the current management. (6) Postoperative state: Patient is in the process of being discharged Plan The patient's overall cardiovascular status seems to be stable. She may be treated with anti-inflammatory medication for the chest wall pain. Since she had a normal cardiac catheterization a year ago, she may not require any further cardiac workup at this point. From a cardiac standpoint, patient can be discharged home Consult Attestations 2 Medical Necessity Statement: Disposition as per the primary Coding Level of Care Code 12473 Diagnoses Chest pain on breathing R07.1 Chest pain type: chest pain on breathing Benign essential HTN I10 Dyslipidemia E78.5 Cigarette nicotine dependence without complication F17.210 Nicotine product type: cigarettes Generalized anxiety disorder F41.1 Postoperative state Z98.890
--- NOTE | 2023-07-30 17:11 | PC.OT ---
OT treatment attempted with pt declining; will attempt again at later time.
--- NOTE | 2023-07-30 17:17 | PM.DCS ---
Discharge Providers Date of Admission: 07/26/23 15:01 Date of Discharge: July 30, 2023 Attending Provider at Admission: Eliceo Jensen DO Attending Provider at Discharge: Eliceo Jensen DO Consults: Neurology Dr. Roland Rock Cardiology Dr. Steele Hospitalist?Dr. Vale Primary Care Provider: Denice Gaitan Diagnoses at Discharge Discharge Diagnosis (1) Chest pain: Status: Acute Qualifiers: Chest pain type: chest pain on breathing Qualified Code(s): R07.1 - Chest pain on breathing (2) Benign essential HTN: Status: Acute (3) Dyslipidemia: Status: Acute (4) Nicotine dependence, unspecified, uncomplicated: Status: Acute Qualifiers: Nicotine product type: cigarettes Qualified Code(s): F17.210 - Nicotine dependence, cigarettes, uncomplicated (5) Generalized anxiety disorder: Status: Acute (6) Postoperative state: Status: Acute Reason for Visit Reason for Visit: M17.12 Brief History: Status post left total knee arthroplasty and hardware removal Hospital Course Hospital Course Patient presented to the preoperative holding area with plan for left total knee arthroplasty and hardware removal after patient has been worked up in the outpatient setting for failed conservative treatment of left knee degenerative joint disease. Once cleared by anesthesia for surgery patient subsequently was taken back to the operative suite underwent anesthesia per anesthesia department and then subsequently underwent a left total knee arthroplasty and hardware removal. Procedure was performed without any complications patient was taken to PACU in stable condition patient recovered well in PACU and then was admitted to the floor postoperatively internal medicine was consulted and on board for medical management and assistance with care. Patient received appropriate PT/OT, postoperative antibiotics, postoperative TXA, pain control, postoperative DVT prophylaxis. Elevation and ice. Patient encouraged for knee range of motion allowed weightbearing as tolerated to the operative lower extremity. Dressing was changed as needed, labs were monitored daily. Patient was On postoperative day 1 for pain control overnight from postop day 1 today to patient had a seizure. She states she had seizure last time when she was just a child. This was worked up by neurology and the hospitalist. Patient will be started on medications. She was covered after her seizure with no apparent residual deficits appreciate hospitalist and neurology recommendations or workup please refer to their notes for details she will follow-up with neurology outpatient. On postop day 4 morning patient had chest pain and subsequently was worked up by hospitalist and cardiology was consulted found to have no acute cardiac causes for chest pain and appreciate their workup and refer to their notes for details. It was determined on postoperative day 4 the patient was stable for discharge from an orthopedic standpoint and medicine, neurology and cardiology. Patient was comfortable with discharge and plan was discharged home. Patient received appropriate discharge instructions as well as pain medication and DVT prophylaxis postoperatively. Given appropriate instructions for dressing management. Patient will follow-up with Dr. Jensen/orthopedics in the office in 2 weeks. All questions answered. Understand if there is any issues questions or concerns and contact the office. Physical Exam Const: COMMON NORMALS: no acute distress and alert Resp: COMMON NORMALS: normal respiratory effort and No retractions Cardio: COMMON NORMALS: Peripheral pulses 2+ throughout PERIPHERAL PULSES: Peripheral pulses 2+ throughout Extremity: NARRATIVE EXTREMITY EXAM: Left knee?normal postop swelling. Fabian bandage taken down and patient has sofy dressing on in place with good seal there is only 2 small spots of saturation noted. Patient able to wiggle toes and dorsiflex plantarflex foot. Pedal pulses 2+. Compartment soft compressible. Surgical dressing still dry and intact. Neuro: SENSORIUM/ORIENTATION: Yes alert Skin: GENERAL SKIN EXAM: dry skin Urinary Catheter Management: Love: Cath Placed During This Visit: yes, but has since been removed by the nurse Reason for Continuing Indwelling Catheter: Acute Urinary Retention or Obstruction Urinary Catheter Date of Insertion: 07/26/23 Urinary Catheter Time of Insertion: 13:05 Date Urinary Catheter Removed: 07/27/23 Time Urinary Catheter Discontinued: 06:22 Discharge Data Studies Completed and Pending Completed Studies During Hospitalization Category Date Time Status CT head wo con* [id number] Stat Cat Scan 07/28/23 02:12 Completed XR chest 1V portable [id number] Routine Exams 07/28/23 02:15 Completed XR knee LT 1-2V [id number] Routine Exams 07/26/23 15:12 Completed MR head wo con* [id number] Routine MRI 07/28/23 04:43 Completed MR pituitary wo con [id number] Routine MRI 07/29/23 07:00 Completed Pending at discharge Category Date Time Status EEG electroencephalogram Routine Exams 07/28/23 12:10 Ordered CV. echo complete* [id number] Stat Ultrasound 07/30/23 10:12 Taken Radiology Impressions Knee X-Ray 07/26/23 15:12 IMPRESSION: Normal appearing postoperative left total knee arthroplasty. Head CT 07/28/23 02:12 IMPRESSION: 1. Suggestion of possible cystic expansion of the sella turcica with mass effect on the pituitary gland. Recommend MRI for definitive characterization. 2. Lytic appearance with well marginated sclerotic border of the left sphenoid skull base, likely represents arachnoid granulation versus cephalocele. Attention on follow-up recommended MRI. 3. No further acute intracranial findings. Chest X-Ray 07/28/23 02:15 IMPRESSION: Suggestion of retrocardiac/left lower lobe infiltrate with associated small pleural effusion. Mild consolidative appearance given small bronchograms. May represent infection in the correct clinical setting. Head MRI 07/28/23 04:43 IMPRESSION: Some imaging degraded by motion. Fast imaging protocol utilized 1. No evidence of restricted diffusion to suggest acute ischemia. 2. Mild patchy supratentorial white matter changes nonspecific in a patient this age but can be seen with hypertension, diabetes, collagen vascular disease, and migraine headaches. No significant parenchymal volume loss. 3. Temporal lobes and hippocampal formations are normal in appearance. No evidence of signal abnormality in the mesial temporal lobes. 4. No evidence of encephalocele. 5. Benign-appearing partially empty sella. Pituitary infundibulum appears midline. Normal optic chiasm. Paucity of pituitary tissue. Pituitary MRI 07/29/23 07:00 IMPRESSION: Exam done without gadolinium per patient request due to pain 1. No evidence of restricted diffusion to suggest acute ischemia. 2. Optic chiasm appears normal with normal midline infundibulum. Partially empty sella with paucity of pituitary tissue in the floor of the sella. 3. Temporal lobes and hippocampal formations are normal in appearance. 4. No evidence of cephalocele protruding into the mastoid or epitympanum. No fluid collections in the LEFT mastoid air cells or middle ear. 5. High-resolution temporal bone CT could be obtained to assess the bony integrity of the middle cranial fossa and tegmen tympani if continued concern. Laboratory Results WBC 14.73 10^3/uL (3.29-11.43) H 07/30/23 04:26 RBC 3.07 10^6/uL (3.85-5.65) L 07/30/23 04:26 Hgb 9.70 g/dL (11.27-16.99) L 07/30/23 04:26 Hct 30.4 % (36-47) L 07/30/23 04:26 MCV 99.0 fl (85-98) H 07/30/23 04:26 MCH 31.6 pg (27-33) 07/30/23 04: MCHC 31.9 g/dL (30-55) 07/30/23 04:26 RDW 12.9 % (12.1-15.1) 07/30/23 04:26 Plt Count 213 10^3/cmm (157-399) 07/30/23 04:26 MPV 10.1 fL (7.4-10.4) 07/30/23 04:26 Neut % (Auto) 65.8 % 07/30/23 04:26 Lymph % (Auto) 24.4 % 07/30/23 04:26 [place] % (Auto) 8.7 % 07/30/23 04:26 Eos % (Auto) 0.4 % 07/30/23 04:26 Baso % (Auto) 0.2 % 07/30/23 04:26 Neut # (Auto) 9.68 10^3/uL (1.8-7.7) H 07/30/23 04:26 Lymph # (Auto) 3.6 10^3/uL (0.8-4.8) 07/30/23 04:26 [place] # (Auto) 1.3 10^3/uL (0.2-0.9) H 07/30/23 04:26 Eos # (Auto) 0.1 10^3/uL (0.0-0.8) 07/30/23 04:26 Baso # (Auto) 0.0 10^3/uL (0.0-0.1) 07/30/23 04:26 Nucleated RBC % (auto) 0 % 07/30/23 04:26 Nucleated RBCs # 0.0 /100WBC 07/30/23 04:26 Specimen Type Arterial 07/28/23 01:50 Sample Site Radial, left 07/28/23 01:50 ABG pH 7.22 (7.35-7.45) L 07/28/23 01:50 ABG pCO2 54.5 mmHg (35-45) H 07/28/23 01:50 ABG pO2 116.0 mmHg (80.0-100.0) H 07/28/23 01:50 ABG PO2/FiO2 Ratio 0 07/28/23 01:50 ABG HCO3 22.3 mmol/L (22-26) 07/28/23 01:50 ABG O2 Saturation 98.5 07/28/23 01:50 ABG Base Excess -5.8 mmol/L (-2.0-2.0) L 07/28/23 01:50 Steve Test Pos 07/28/23 01:50 A-a O2 Gradient 1.8 mmHg (5-10) L 07/28/23 01:50 Hematocrit 37.6 % (37-47) 07/28/23 01:50 Hgb O2 Saturation 96.3 % (95-100) 07/28/23 01:50 Carboxyhemoglobin 1.4 %THgb (0.4-20.1) 07/28/23 01:50 Methemoglobin 0.8 % (0.4-1.5) 07/28/23 01:50 Total Hemoglobin 12.3 g/dL (12-16) 07/28/23 01:50 Sodium 143.0 mmol/L (131-143) 07/28/23 01:50 Potassium 3.2 mmol/L (3.5-5.0) L 07/28/23 01:50 Glucose 134.0 mg/dL (70-115) H 07/28/23 01:50 Ionized Calcium 1.4 mmol/L (1.1-1.4) 07/28/23 01:50 O2 Delivery Device Nc 07/28/23 01:50 O2 Liters/Min 2.0 % 07/28/23 01:50 FiO2 28.0 % 07/28/23 01:50 Studio Engineer ID Alewe 07/28/23 01:50 Sodium 140 mmol/L (136-145) 07/30/23 04:26 Potassium 3.6 mmol/L (3.5-5.1) 07/30/23 04:26 Chloride 100 mmol/L (98-107) 07/30/23 04:26 Carbon Dioxide 31 mmol/L (22-29) H 07/30/23 04:26 Anion Gap 12.6 (5-19) 07/30/23 04:26 BUN 11 mg/dL (6-20) 07/30/23 04:26 Creatinine 0.7 mg/dL (0.5-0.9) 07/30/23 04:26 GFR Calculation 87.9 mL/min (90-130) L 07/30/23 04:26 Glucose 106 mg/dL (65-115) 07/30/23 04:26 POC Glucose 132 mg/dL (70-110) H 07/28/23 01:50 Calculated Osmolality 290 mOsm/kg (285-295) 07/30/23 04:26 Lactic Acid 3.4 mmol/L (0.5-2.2) H 07/28/23 02:20 Lactic Acid (Sepsis) 0.9 mmol/L (0.5-2.2) 07/28/23 04:03 Calcium 9.0 mg/dL (8.5-10.5) 07/30/23 04:26 Phosphorus 4.3 mg/dL (2.5-4.5) 07/28/23 02:20 Magnesium 1.6 mg/dL (1.7-2.3) L 07/28/23 02:20 Total Bilirubin 0.3 mg/dL (0.15-1.2) 07/28/23 02:20 AST 23 U/L (0-32) 07/28/23 02:20 ALT 19 U/L (0-33) 07/28/23 02:20 Alkaline Phosphatase 112 U/L (35-105) H 07/28/23 02:20 Ammonia 50 umol/L (11-51) 07/28/23 02:20 Creatine Kinase 559 U/L (26-192) H* 07/28/23 02:20 Troponin T 5th Gen ng/L 12 ng/L (0-10) H 07/30/23 10:14 Troponin T Baseline 12 ng/L (0-10) H 07/28/23 02:20 Troponin T 120 Minute 26.46 ng/L (0-10) H 07/28/23 04:03 Delta Troponin T 14.46 ABS# (0-10) H* 07/28/23 04:03 Troponin T Hi Sens 6Hr 24.14 ng/L (0-10) H 07/28/23 09:40 Troponin T Hi Sens 6Hr Delta 12.14 ng/L (0-12) H* 07/28/23 09:40 C-Reactive Protein 95.3 mg/L (0.0-4.9) H 07/28/23 02:20 Total Protein 6.3 g/dL (6.6-8.7) L 07/28/23 02:20 Albumin 3.8 g/dL (3.5-5.2) 07/28/23 02:20 Globulin 2.5 g/dL (1.3-4.6) 07/28/23 02:20 Procalcitonin 0.08 ng/mL (0-0.5) 07/28/23 02:20 Urine Opiates Screen Positive ng/mL (Negative) H 07/28/23 05:05 Ur Barbiturates Screen Negative ng/mL (Negative) 07/28/23 05:05 Carbamazepine 3.2 ug/mL (4.0-12.0) L 07/28/23 13:17 Ur Phencyclidine Scrn Negative ng/mL (Negative) 07/28/23 05:05 Ur Amphetamines Screen Negative ng/mL (Negative) 07/28/23 05:05 U Benzodiazepines Scrn Positive ng/mL (Negative) H 07/28/23 05:05 Urine Cocaine Screen Negative ng/mL (Negative) 07/28/23 05:05 U Marijuana (THC) Screen Negative ng/mL (Negative) 07/28/23 05:05 Blood Type A Positive 07/26/23 12:07 Rho(D) Type Rh positive 07/26/23 12:07 Antibody Screen Negative 07/26/23 12:07 Vitals Last Vital Signs Temp 98.3 F 07/30/23 16:00 Pulse 86 07/30/23 16:00 Resp 16 07/30/23 16:00 BP 140/82 07/30/23 16:00 Pulse Ox 95 07/30/23 16:00 O2 Del Method Room Air 07/30/23 16:00 O2 Flow Rate 3 07/28/23 20:02 Discharge Plan Discharge Patient Disposition: Home Condition: Stable Prescriptions: New Eliquis 2.5 mg tablet 2.5 mg PO BID 14 Days Qty: 28 0RF Ferrex 150 150 mg iron Capsule 150 mg PO DAILY Qty: 30 0RF docusate sodium 100 mg Capsule 100 mg PO BID Qty: 60 0RF calcium carbonate-vitamin D3 600 mg-10 mcg (400 unit) Tablet 1 tab PO BID Qty: 60 0RF ibuprofen 400 mg tablet 400 mg PO Q8H PRN (Reason: pain) 3 Days Qty: 20 0RF Protonix 40 mg tablet,delayed release (DR/EC) 40 mg PO DAILY Qty: 20 0RF oxycodone 5 mg tablet 5 mg PO Q4H PRN (Reason: pain postop) 7 Days Qty: 42 0RF cephalexin 500 mg capsule 500 mg PO Q8H 7 Days Qty: 21 0RF Continued Prilosec 10 mg susp,delayed release for recon 40 mg PO DAILY methocarbamol 500 mg tablet 500 mg PO BID hydrocodone-acetaminophen 10-325 mg tablet 1 tab PO Q6H PRN (Reason: Pain) Incruse Ellipta 62.5 mcg/actuation blister with device 1 inh inhalation DAILY Qty: 30 3RF albuterol sulfate 2.5 mg /3 mL (0.083 %) solution for nebulization 2.5 mg inhalation QID PRN (Reason: shortness of breath or wheezing) Qty: 180 6RF ipratropium bromide 0.02 % solution 2.5 ml inhalation Q6H PRN (Reason: shortness of breath or wheezing) Qty: 150 6RF nitroglycerin 0.4 mg tablet, sublingual 0.4 mg sublingual Q5M PRN (Reason: chest pain) Qty: 10 0RF Rx Instructions: do not exceed 3 doses per episode budesonide-formoterol [Symbicort] 160-4.5 mcg/actuation HFA aerosol inhaler 2 puff inhalation BID Qty: 10.2 6RF amlodipine [Norvasc] 10 mg tablet 10 mg PO DAILY Qty: 90 3RF hydrochlorothiazide 25 mg tablet 25 mg PO DAILY Qty: 30 3RF albuterol sulfate 90 mcg/actuation HFA aerosol inhaler 2 puff inhalation Q6H PRN (Reason: COPD) Qty: 8.5 6RF metoprolol tartrate 50 mg tablet 50 mg PO BID Qty: 180 3RF atorvastatin 40 mg tablet 80 mg PO QPM azelastine-fluticasone 137-50 mcg/spray spray,non-aerosol 1 spray intranasal BID PRN (Reason: congsetion) Rx Instructions: administer into each nostril topiramate 25 mg tablet 25 mg PO .qhs Qty: 30 0RF Changed carbamazepine 200 mg tablet 200 mg PO BID Qty: 60 0RF Rx Instructions: Take 1 tablet by mouth twice daily Held lisinopril 40 mg tablet 40 mg PO DAILY Qty: 90 1RF Hold Instructions: see pcp Discharge Orders: Discharge Order (Routine); Ordered 07/30/23 Ordered By: Eliceo Jensen Other Ambulatory Orders: DME: Walker (Order) Location: None Selected Ordered By: Valeria Vale Referrals: [facility] [place] [[place]] Roland Rock MD [Physician] - 3 weeks (We have notified your physician's clinic of the need for a follow-up appointment to be scheduled. If you have not heard from them within the next 2 business days, please call them directly. ) Ladi Steele MD [Physician] - 1 month (We have notified your physician's clinic of the need for a follow-up appointment to be scheduled. If you have not heard from them within the next 2 business days, please call them directly. ) Eliceo Jensen DO [Physician] - 08/10/23 9:00 am Discharge Diet: Regular Discharge Activity: Limit activity as instructed and Use walker/crutches as instructed Patient Instructions: Iron Supplements (By mouth), Ondansetron (By mouth), Pantoprazole (By mouth), Oxycodone, Slow Release (By mouth), Apixaban (By mouth), Epilepsy (GEN), Total Knee Replacement (GEN), Joint Replacement Stoplight, Opioid Safety, Post Anesthesia Care Activity Restrictions/Additional Instructions: Ortho DC instructions Keep incisions clean dry and intact, leave sofy incisional VAC bandage/dressing on in place for 7 days after that may remove the entire dressing and rinse incisions with warm soapy water pat dry and redress with a dry dressing. Patient may weight-bear as tolerate to the operative extremity Utilize crutches as needed Encourage knee range of motion Ice and elevate as needed for pain and swelling Take pain medication as prescribed Take antinausea medication as needed Take antibiotic as prescribed The prescribed Eliquis twice daily for the next 14 days for blood clot prevention May supplement for pain with ibuprofen [id number] as needed No baths or soaks Follow-up in the orthopedic office in 2 weeks Contact the office for any questions or concerns Discharge Attestations Time Spent in Discharge Care*: greater than 30 min Quality Metrics Clinical Quality Measures [ No reported AMI, CVA or VTE this stay (Postop seizure)] Coding Level of Care Code Acute Code for Chg Fwd Diagnoses Chest pain on breathing R07.1 Chest pain type: chest pain on breathing Benign essential HTN I10 Dyslipidemia E78.5 Cigarette nicotine dependence without complication F17.210 Nicotine product type: cigarettes Generalized anxiety disorder F41.1 Postoperative state Z98.890 Time Spent (min) 35
== END 2023-07-30 18:07 | disposition home or self-care (01) | DRG 470 ==
LOC: MEDSURG 07-27 10:58
PROVIDERS: Family Medicine; Internal Medicine; Physician Assistant; Admitting Provider Student in an Organized Health Care Education/Training Program; PCP Nurse Practitioner Family; Visit Provider Student in an Organized Health Care Education/Training Program
PROC: 8E0Y0CZ Robotic Assisted Procedure of Lower Extremity, Open Approach (ICD-10-PCS; CPT 27447; principal; 2023-07-26 12:20)
PROC: 0SRD0J9 Replacement of Left Knee Joint with Synthetic Substitute, Cemented, Open Approach (ICD-10-PCS; 2023-07-26 12:20)
DX: M17.12 Unilateral primary osteoarthritis, left knee (principal); T84.84XA Pain due to internal orthopedic prosthetic devices, implants and grafts, initial encounter; E87.0 Hyperosmolality and hypernatremia; Z68.41 Body mass index [BMI] 40.0-44.9, adult; Y79.8 Miscellaneous orthopedic devices associated with adverse incidents, not elsewhere classified; F43.10 Post-traumatic stress disorder, unspecified; F41.1 Generalized anxiety disorder; F17.210 Nicotine dependence, cigarettes, uncomplicated; J44.9 Chronic obstructive pulmonary disease, unspecified; I10 Essential (primary) hypertension; R07.9 Chest pain, unspecified; E86.0 Dehydration; R56.9 Unspecified convulsions; E78.5 Hyperlipidemia, unspecified; E66.9 Obesity, unspecified; G62.9 Polyneuropathy, unspecified; Z88.2 Allergy status to sulfonamides; Z88.0 Allergy status to penicillin
CPT/HCPCS: 36415; 36416; 36600; 51702; 70450; 70551; 71045; 73560; 76000; 80048; 80051; 80053; 80156; 80306; 82140; 82330; 82550; 82805; 82962; 83605; 83735; 84100; 84145; 84484; 85025; 86140; 86850; 86900; 93005; 93306; 94640; 94664; 97110; 97116; 97161; 97165; 97530; 97535; C1776; J0131; J0171; J0690; J1100; J1170; J1630; J1885; J1953; J2060; J2250; J2371; J2405; J2704; J2710; J2795; J3010; J3370; J3490; J7030; J7120; J7626; J7799

== ENCOUNTER → 2023-08-10 09:18 | Outpatient (BNVA) | payer MEDICAID, SELFPAY | PROVIDERS: PCP Nurse Practitioner Family; Visit Provider Physician Assistant | DX: Z96.652 Presence of left artificial knee joint (principal) | CPT/HCPCS: 73560; 73565; 99024 ==

== ENCOUNTER → 2023-08-11 15:33 | Outpatient (BNVA) | payer MEDICAID, SELFPAY | PROVIDERS: PCP Nurse Practitioner Family; Visit Provider Nurse Practitioner Family | DX: R07.1 Chest pain on breathing (principal); F17.210 Nicotine dependence, cigarettes, uncomplicated | CPT/HCPCS: 99213 ==

== ENCOUNTER → 2023-08-23 13:43 | Outpatient (BNVA) | payer MEDICAID, SELFPAY | PROVIDERS: PCP Nurse Practitioner Family; Visit Provider Internal Medicine Pulmonary Disease | DX: J44.89 Other specified chronic obstructive pulmonary disease (principal); R07.9 Chest pain, unspecified; I10 Essential (primary) hypertension; G47.19 Other hypersomnia; F17.210 Nicotine dependence, cigarettes, uncomplicated | CPT/HCPCS: 99214 ==

== ENCOUNTER → 2023-08-24 09:58 | Outpatient (BNVA) | payer MEDICAID, SELFPAY | PROVIDERS: PCP Nurse Practitioner Family; Referring Provider Psychiatry & Neurology Neurology; Visit Provider Internal Medicine | DX: E23.6 Other disorders of pituitary gland; G40.909 Epilepsy, unspecified, not intractable, without status epilepticus | CPT/HCPCS: 99204 ==

== ENCOUNTER 2023-08-30 07:51 | Outpatient (CLI) | payer MEDICAID, SELFPAY ==
[2023-08-30 08:51] LABS: Cortisol Random 12.89 ug/dL (2.47-19.5); Free T4 Free Thyroxine 0.96 ng/dL (0.82-1.77); Thyroid Stimulating Hormone 2.89 uIU/mL (0.27-4.20)
[2023-08-30 09:29] LABS: Prolactin 21.13 ng/mL (4.8-23.3)
[2023-09-03 14:44] LABS: IGF1 LC/MS 192 ng/mL (50-317); Z Score (Female) 0.7 SD (-2.0 - +2.0)
== END 2023-08-30 07:52 | disposition home or self-care (01) ==
LOC: LAB 07:51
PROVIDERS: PCP Nurse Practitioner Family; Visit Provider Internal Medicine
DX: E23.7 Disorder of pituitary gland, unspecified (principal)
CPT/HCPCS: 82533; 84146; 84305; 84439; 84443

== ENCOUNTER → 2023-09-21 13:31 | Outpatient (BNVA) | payer MEDICAID, SELFPAY | PROVIDERS: PCP Nurse Practitioner Family; Visit Provider Physician Assistant | DX: Z96.652 Presence of left artificial knee joint (principal) | CPT/HCPCS: 73560; 73565; 99024 ==

== ENCOUNTER → 2023-10-05 13:03 | Outpatient (BNVA) | payer MEDICAID, SELFPAY | PROVIDERS: PCP Nurse Practitioner Family; Visit Provider Physician Assistant | DX: Z96.652 Presence of left artificial knee joint (principal) | CPT/HCPCS: 73560; 73565; 99024 ==

== ENCOUNTER → 2023-11-10 09:26 | Outpatient (BNVA) | payer MEDICAID, SELFPAY | PROVIDERS: PCP Nurse Practitioner Family; Visit Provider Podiatrist Foot & Ankle Surgery | DX: M77.42 Metatarsalgia, left foot; M20.41 Other hammer toe(s) (acquired), right foot; M20.42 Other hammer toe(s) (acquired), left foot; M21.622 Bunionette of left foot; M21.41 Flat foot [pes planus] (acquired), right foot; M21.42 Flat foot [pes planus] (acquired), left foot; M77.51 Other enthesopathy of right foot and ankle | CPT/HCPCS: 73630; 99213 ==

== ENCOUNTER 2023-11-16 07:41 | Outpatient (RCR) | payer SELFPAY | END 2023-11-20 18:00 | disposition home or self-care (01) | LOC: SPT 07:41 | PROVIDERS: PCP Nurse Practitioner Family; Visit Provider Student in an Organized Health Care Education/Training Program | DX: Z47.1 Aftercare following joint replacement surgery (principal); Z96.652 Presence of left artificial knee joint | CPT/HCPCS: 97110; 97161 ==

== ENCOUNTER 2023-11-21 06:00 | Outpatient (RCR) | payer MEDICAID, SELFPAY | END 2023-12-20 23:59 | disposition home or self-care (01) | LOC: SPT 06:00 | PROVIDERS: PCP Nurse Practitioner Family; Visit Provider Student in an Organized Health Care Education/Training Program | DX: Z47.1 Aftercare following joint replacement surgery (principal); Z96.652 Presence of left artificial knee joint | CPT/HCPCS: 97110 ==

== ENCOUNTER → 2023-12-09 14:37 | Outpatient (BNVA) | payer MEDICAID, SELFPAY | PROVIDERS: PCP Nurse Practitioner Family; Visit Provider Physician Assistant | DX: Z96.652 Presence of left artificial knee joint (principal) | CPT/HCPCS: 73560; 73565; 99213 ==

== ENCOUNTER 2023-12-20 07:13 | Outpatient (CLI) | payer MEDICAID, SELFPAY ==
--- NOTE | 2023-12-20 07:15 | MR_ITS ---
WS: [id number] EXAMINATION: MR foot LT wo con* [id number] ORDER DATE: 12/20/2023 7:16 AM COMPARISON: None. HISTORY: G57.62 - Lesion of plantar nerve, left lower limb CONTRAST: None. TECHNIQUE: Sagittal T1, sagittal STIR, coronal PD, coronal T2, axial T1, axial T2, and axial PD imagi ng with fat saturation technique. FINDINGS: Normal anatomic alignment. Normal bone marrow signal. No acute fractures. Metatarsals appear normal. Phalanges appear normal. Mild degenerative arthritis at the first MTP. Tiny 5 mm ganglion cyst along the medial navicular. Normal ossicles. Mild edema along the extensor digitorum and flexor compartment tendons can be seen with plantar neuri tis. Recommend correlation with clinical symptoms. No other suspicious findings. MR/MR foot LT wo con* [id number] IMPRESSION: 1. Normal bone marrow signal. No acute fractures. 2. Mild edema along the extensor digitorum and flexor compartment tendons can be seen with plantar neuritis. Recommend correlation with clinical symptoms. 3. Tiny 5 mm ganglion cyst along the navicular. 4. No other suspicious findings.
== END 2023-12-20 07:14 | disposition home or self-care (01) ==
PROVIDERS: PCP Nurse Practitioner Family; Visit Provider Podiatrist Foot & Ankle Surgery
DX: G57.62 Lesion of plantar nerve, left lower limb (principal); M67.472 Ganglion, left ankle and foot
CPT/HCPCS: 73718

== ENCOUNTER 2023-12-21 06:00 | Outpatient (RCR) | payer MEDICAID, SELFPAY | END 2024-01-20 23:59 | disposition home or self-care (01) | LOC: SPT 06:00 | PROVIDERS: PCP Nurse Practitioner Family; Visit Provider Student in an Organized Health Care Education/Training Program | DX: Z96.652 Presence of left artificial knee joint (principal) | CPT/HCPCS: 97110 ==

== ENCOUNTER → 2024-01-03 12:57 | Outpatient (BNVA) | payer MEDICAID, SELFPAY | PROVIDERS: PCP Nurse Practitioner Family; Visit Provider Podiatrist Foot & Ankle Surgery | DX: M67.472 Ganglion, left ankle and foot (principal); G57.92 Unspecified mononeuropathy of left lower limb; G57.62 Lesion of plantar nerve, left lower limb; R25.2 Cramp and spasm | CPT/HCPCS: 99213 ==

== ENCOUNTER 2024-01-21 06:00 | Outpatient (RCR) | payer MEDICAID, SELFPAY | END 2024-02-19 23:59 | disposition home or self-care (01) | LOC: SPT 06:00 | PROVIDERS: PCP Nurse Practitioner Family; Visit Provider Student in an Organized Health Care Education/Training Program | DX: Z47.1 Aftercare following joint replacement surgery (principal); Z96.652 Presence of left artificial knee joint | CPT/HCPCS: 97110 ==

== ENCOUNTER → 2024-01-24 11:14 | Outpatient (BNVA) | payer MEDICAID, SELFPAY | PROVIDERS: PCP Nurse Practitioner Family; Visit Provider Internal Medicine Cardiovascular Disease | DX: R07.1 Chest pain on breathing (principal); I10 Essential (primary) hypertension; E78.5 Hyperlipidemia, unspecified; F17.211 Nicotine dependence, cigarettes, in remission | CPT/HCPCS: 99213 ==

== ENCOUNTER → 2024-01-25 11:04 | Outpatient (BNVA) | payer MEDICAID, SELFPAY | PROVIDERS: PCP Nurse Practitioner Family; Visit Provider Student in an Organized Health Care Education/Training Program | DX: Z96.652 Presence of left artificial knee joint (principal); M25.562 Pain in left knee | CPT/HCPCS: 73560; 73565; 99213 ==

== ENCOUNTER → 2024-03-09 13:33 | Outpatient (BNVA) | payer MEDICAID, SELFPAY | PROVIDERS: PCP Nurse Practitioner Family; Visit Provider Student in an Organized Health Care Education/Training Program | DX: M25.551 Pain in right hip; M25.552 Pain in left hip; M54.9 Dorsalgia, unspecified; M53.3 Sacrococcygeal disorders, not elsewhere classified; M54.50 Low back pain, unspecified | CPT/HCPCS: 73523; 99213 ==

== ENCOUNTER → 2024-03-20 11:12 | Outpatient (BNVA) | payer MEDICAID, SELFPAY | PROVIDERS: PCP Nurse Practitioner Family; Visit Provider Podiatrist Foot & Ankle Surgery | DX: M67.472 Ganglion, left ankle and foot (principal); G57.92 Unspecified mononeuropathy of left lower limb; G57.62 Lesion of plantar nerve, left lower limb; R25.2 Cramp and spasm | CPT/HCPCS: 99213 ==

== ENCOUNTER → 2024-04-11 08:25 | Outpatient (BNVA) | payer MEDICAID, SELFPAY | PROVIDERS: PCP Nurse Practitioner Family; Visit Provider Orthopaedic Surgery | DX: M54.50 Low back pain, unspecified (principal); M53.3 Sacrococcygeal disorders, not elsewhere classified; M79.604 Pain in right leg; M79.605 Pain in left leg; M48.062 Spinal stenosis, lumbar region with neurogenic claudication | CPT/HCPCS: 72110; 99204 ==

== ENCOUNTER 2024-05-17 10:30 | Outpatient (RCR) | payer MEDICAID, SELFPAY | END 2024-05-19 23:59 | disposition home or self-care (01) | LOC: SPT 10:30 | PROVIDERS: Visit Provider Orthopaedic Surgery | DX: M54.50 Low back pain, unspecified (principal); G89.29 Other chronic pain | CPT/HCPCS: 97161 ==

== ENCOUNTER 2024-05-20 06:00 | Outpatient (RCR) | payer MEDICAID, SELFPAY | END 2024-06-19 23:59 | disposition home or self-care (01) | LOC: SPT 06:00 | PROVIDERS: Visit Provider Orthopaedic Surgery | DX: M54.50 Low back pain, unspecified (principal); G89.29 Other chronic pain | CPT/HCPCS: 97110 ==

== ENCOUNTER 2024-06-09 10:21 | Outpatient (CLI) | payer MEDICAID, SELFPAY ==
--- NOTE | 2024-06-09 10:30 | XR_ITS ---
WS: [id number] Cervical spine, 8 views including both obliques, and lateral views in flexion, extension and neutral position, AP and open-mouth odontoid, 06/09/2024 Clinical Data: NECK PAIN Comparison: None. Findings: No compression fractures are seen. There is degenerative disc narrowing at C3-C4, C5-C6 and C6-C7. There is accompanying osteoarthritic spurring. The oblique films show bilateral foraminal encroachment at C5-C6 to C6-C7. There is no prevertebral soft tissue swelling. The odontoid is unremarka ble. The soft tissues of the neck and the lung apices are normal. There is no instability on flexion or extension. XR/XR cervical spine min 6V [id number] Impression: 1. Degenerative disc narrowing at multiple levels with accompanying osteoarthri tis. 2. Bilateral foraminal encroachment at C5-C6 and C6-C7. 3. No instability on flexion or extension.
== END 2024-06-09 10:22 | disposition home or self-care (01) ==
LOC: RAD 10:23
PROVIDERS: PCP Family Medicine; Visit Provider Family Medicine
DX: M50.31 Other cervical disc degeneration, high cervical region (principal); M50.322 Other cervical disc degeneration at C5-C6 level; M50.323 Other cervical disc degeneration at C6-C7 level; M46.02 Spinal enthesopathy, cervical region; R93.7 Abnormal findings on diagnostic imaging of other parts of musculoskeletal system
CPT/HCPCS: 72052

== ENCOUNTER 2024-06-20 06:00 | Outpatient (RCR) | payer MEDICAID, SELFPAY | END 2024-07-19 23:59 | disposition home or self-care (01) | LOC: SPT 06:00 | PROVIDERS: PCP Family Medicine; Visit Provider Orthopaedic Surgery | DX: M54.50 Low back pain, unspecified (principal); G89.29 Other chronic pain | CPT/HCPCS: 97110 ==

== ENCOUNTER → 2024-06-27 10:22 | Outpatient (BNVA) | payer MEDICAID, SELFPAY | PROVIDERS: PCP Family Medicine; Visit Provider Student in an Organized Health Care Education/Training Program | DX: Z96.652 Presence of left artificial knee joint (principal); M17.11 Unilateral primary osteoarthritis, right knee | CPT/HCPCS: 20610; 73560; 73565; 99214; J3301; J9999 ==

== ENCOUNTER 2024-07-06 07:59 | Outpatient (CLI) | payer MEDICAID, SELFPAY ==
--- NOTE | 2024-07-06 08:01 | MR_ITS ---
WS: [id number] MRI CERVICAL SPINE NONCONTRAST TECHNIQUE: Sagittal T1, T2 and STIR imaging. Axial T2, gradient, and fiesta imaging. CLINICAL INFORMATION: LUMBAR RADICULOPATHY COMPARISON: None. FINDINGS: Straightening of the normal cervical lordosis. Moderate spondylitic changes. Disc bulging worse at C3-C4 C5-C6 and C6-C7. Cord signal is normal. Partially empty sella. C2-C3: Normal. C3-C4: Disc osteophyte complex. Mild central canal stenosis. Mild facet arthropathy. Moderate RIGHT greater than LEFT foraminal narrowing. C4-C5: Mild disc bulging. Moderate facet arthropathy. Mild bilateral foraminal narrowing. C5-C6: Central disc osteophyte protrusion. Moderate central canal stenosis. Moderate RIGHT greater than LEFT foraminal narrowing. C6-C7: Moderate central canal stenosis. Disc osteophyte complex eccentric to the RIGHT. Impingement RIGHT subarticular recess. Severe RIGHT and moderate to severe LEFT bony foraminal narrowing. C7-T1: Mild bilateral bony foraminal narrowing. Spinal canal is patent. Visualized brain stem structures: Normal. Prevertebral soft tissues: Normal. 9 mm LEFT thyroid nodule MR/MR cervical spin wo con* [id number] IMPRESSION: 1. Straightening of the normal cervical lordosis. Moderate spondylitic changes . Disc osteophyte protrusions worse at C3-C4 C5-C6 and C6-C7. 2. Mild central canal stenosis C3-C4. 3. Moderate central canal stenosis C5-C6 and C6-C7 worse at C6-C7 with impinge ment on the RIGHT greater than LEFT subarticular recess. 4. Severe RIGHT and moderate to severe LEFT C6-7 bony foraminal narrowing
--- NOTE | 2024-07-06 08:01 | MR_ITS ---
WS: [id number] MRI LUMBAR SPINE NONCONTRAST TECHNIQUE: Sagittal T1, T2 and STIR imaging. Axial T1 and T2 imaging. CLINICAL INFORMATION: Back pain. Lumbar radiculopathy. COMPARISON: MRI 2021 FINDINGS: Mild lumbar curve. No acute compression. No high-grade central canal stenosis. L1-L2: Mild facet arthropathy. L2-L3: Mild annular bulging. Slight narrowing of the LEFT subarticular recess. Mild LEFT foraminal narrowing. RIGHT foramen is patent. Mild facet arthropathy. L3-L4: Mild annular bulging. Slight narrowing the LEFT subarticular recess. Mild LEFT foraminal narrowing. Mild facet arthropathy. L4-L5: Mild annular bulging. Slight narrowing of the RIGHT subarticular recess. Advanced facet arthropathy. Small facet effusions. Foramina are patent. L5-S1: No significant disc bulging. Advanced facet arthropathy. Spinal canal and foramen are patent. Visualized pelvic bony structures: Normal. Paravertebral soft tissues: Normal. Prominent hypertrophic changes involving the LEFT greater than RIGHT sacroiliac joints with sclerosis. MR/MR lumbar spine wo con* [id number] IMPRESSION: 1. Mild annular bulge L2-3 with slight indentation of the LEFT subarticular re cess and traversing LEFT L3 nerve root. Mild LEFT foraminal narrowing. 2. Slight narrowing the LEFT subarticular recess L3-4 with impingement of the traversing LEFT L4 nerve root. Mild LEFT foraminal narrowing. 3. Mild annular bulging with slight narrowing of the subarticular recess bilat erally at L4-5. 4. Advanced facet arthropathy L4-L5 and L5-S1 with small facet effusions can b e seen with inflammatory or degenerative synovitis. This is advanced for a divine ent this age. This also can be seen with instability. 5. Advanced degenerative changes sacroiliac joints with sclerosis and hypertro phic changes LEFT greater than RIGHT advanced for patient this age
== END 2024-07-06 08:00 | disposition home or self-care (01) ==
PROVIDERS: PCP Family Medicine; Visit Provider Family Medicine
DX: M54.12 Radiculopathy, cervical region (principal); M47.892 Other spondylosis, cervical region; M25.78 Osteophyte, vertebrae; M50.21 Other cervical disc displacement, high cervical region; M50.222 Other cervical disc displacement at C5-C6 level; M50.223 Other cervical disc displacement at C6-C7 level; M48.02 Spinal stenosis, cervical region; M50.31 Other cervical disc degeneration, high cervical region; M50.322 Other cervical disc degeneration at C5-C6 level; M50.323 Other cervical disc degeneration at C6-C7 level; R93.89 Abnormal findings on diagnostic imaging of other specified body structures; M48.03 Spinal stenosis, cervicothoracic region; E04.1 Nontoxic single thyroid nodule; M51.369 Other intervertebral disc degeneration, lumbar region without mention of lumbar back pain or lower extremity pain; M48.061 Spinal stenosis, lumbar region without neurogenic claudication; M47.896 Other spondylosis, lumbar region; M47.897 Other spondylosis, lumbosacral region; M25.48 Effusion, other site; M46.1 Sacroiliitis, not elsewhere classified; R93.7 Abnormal findings on diagnostic imaging of other parts of musculoskeletal system
CPT/HCPCS: 72141; 72148

== ENCOUNTER → 2024-07-25 14:30 | Outpatient (BNVA) | payer MEDICAID, SELFPAY | PROVIDERS: PCP Family Medicine; Visit Provider Student in an Organized Health Care Education/Training Program | DX: M17.12 Unilateral primary osteoarthritis, left knee (principal); Z96.652 Presence of left artificial knee joint; R60.0 Localized edema | CPT/HCPCS: 73560; 73565; 99213 ==

== ENCOUNTER → 2024-08-21 13:14 | Outpatient (BNVA) | payer MEDICAID, SELFPAY | PROVIDERS: PCP Family Medicine; Visit Provider Podiatrist Foot & Ankle Surgery | DX: M79.672 Pain in left foot (principal); R25.2 Cramp and spasm; M72.2 Plantar fascial fibromatosis | CPT/HCPCS: 99213 ==

== ENCOUNTER → 2024-09-21 08:33 | Outpatient (BNVA) | payer MEDICAID, SELFPAY | PROVIDERS: PCP Family Medicine; Visit Provider Orthopaedic Surgery | DX: M48.02 Spinal stenosis, cervical region (principal); G99.2 Myelopathy in diseases classified elsewhere | CPT/HCPCS: 99204 ==

== ENCOUNTER → 2024-12-26 11:25 | Outpatient (BNVA) | payer MEDICAID, SELFPAY | PROVIDERS: PCP Family Medicine; Visit Provider Podiatrist Foot & Ankle Surgery | DX: R25.2 Cramp and spasm (principal); M79.671 Pain in right foot; M79.672 Pain in left foot | CPT/HCPCS: 99213 ==

== ENCOUNTER → 2024-12-27 08:06 | Outpatient (BNVA) | payer MEDICAID, SELFPAY | PROVIDERS: PCP Family Medicine; Visit Provider Internal Medicine | DX: J44.89 Other specified chronic obstructive pulmonary disease (principal); R40.0 Somnolence; F17.210 Nicotine dependence, cigarettes, uncomplicated; J44.9 Chronic obstructive pulmonary disease, unspecified | CPT/HCPCS: 99214; Q3014 ==

== ENCOUNTER → 2025-01-02 13:32 | Outpatient (BNVA) | payer MEDICAID, SELFPAY | PROVIDERS: PCP Family Medicine; Visit Provider Student in an Organized Health Care Education/Training Program | DX: M25.362 Other instability, left knee (principal); M94.262 Chondromalacia, left knee; Z98.890 Other specified postprocedural states; Z96.652 Presence of left artificial knee joint; M17.11 Unilateral primary osteoarthritis, right knee | CPT/HCPCS: 73560; 73565; 99213 ==

== ENCOUNTER → 2025-01-22 11:14 | Outpatient (BNVA) | payer MEDICAID, SELFPAY | PROVIDERS: PCP Family Medicine; Visit Provider Internal Medicine Cardiovascular Disease | DX: R07.9 Chest pain, unspecified (principal); I10 Essential (primary) hypertension; E78.5 Hyperlipidemia, unspecified; F17.210 Nicotine dependence, cigarettes, uncomplicated | CPT/HCPCS: 93005; 99214 ==